=== PATIENT | female | born 1975 | race Caucasian/White ===

== ENCOUNTER 2016-05-16 10:07 | Inpatient (IN) | payer OTHER, MEDICAID ==
--- NOTE | 2016-05-16 11:02 | EDPHY ---
H & P Stated Complaint: SI, visual hallucinations - Personal History Tetanus Vaccine Date: within 10 years - Medical/Surgical History Hx Asthma: No Hx Chronic Respiratory Disease: Yes Hx Diabetes: Yes Hx Cardiac Disease: Yes Hx Renal Disease: Yes Hx Cirrhosis: No Hx Alcoholism: No Hx HIV/AIDS: No Hx Splenectomy or Spleen Trauma: No Other PMH: MEDICAL SI FACTOR V LEIDEN DEFICIENCY, PE X 4, depression, ptsd, pulmonary htn, diabetes; kidney stones, bladder incontinence,recent UTI. SURGERY BACK SURGERY, TONSILLECTOMY, carpal tunnel, ovarian cyst, frequent overdoses, uterine CA - Social History Smoking Status: Former smoker Time Seen by Provider: 05/16/16 10:53 HPI/ROS: CHIEF COMPLAINT: M1, overdose HISTORY OF PRESENT ILLNESS: 41-year-old female history of borderline personality disorder, bipolar disorder, obesity, diabetes, hypertension, hypothyroidism, arrives via police on an M1 hold after she states she took 70 Tizanidine tablets 4 days ago. She has been experiencing visual and auditory hallucinations and stated to the police district switchboard operator that she wanted to kill herself by shooting herself with a gun. She does not own a gun. She states similar to me when I interview her. She has no complaints of acute pain or discomfort. REVIEW OF SYSTEMS: A ten point review of systems was performed and is negative with the exception of the items mentioned in the HPI PAST MEDICAL & SURGICAL HISTORY: bipolar disorder. Borderline personality disorder. Obesity. Uterine dysplasia. Diabetes. Hypertension. Hypothyroidism. SOCIAL HISTORY:denies alcohol use PHYSICAL EXAM (Prior to examination, patient consented to physical exam, hands were washed and my usual and customary physical exam procedures followed) 1) GENERAL: obese, alert and oriented. Appears to be in no acute distress. 2) HEAD: Normocephalic, atraumatic 3) HEENT: Pupils equal, round, reactive to light bilaterally. Sclera anicteric. 4) NECK: Full range of motion, no meningeal signs. 5) LUNGS: Clear auscultation bilaterally, no wheezes, no rhonchi, no retractions. 6) HEART: Regular rate and rhythm, no murmur, no heave, no gallop. 7) ABDOMEN: No guarding, no rebound, no focal tenderness, negative McBurney's, negative Soni's, negative Rovsing's, negative peritoneal sign, 8) MUSCULOSKELETAL: Moving all extremities, no focal areas of tenderness, no obvious trauma. No peripheral edema or discoloration. 9) BACK: No CVA tenderness, no midline vertebral tenderness, no fluctuance, no step-off, no obvious trauma, no visual or palpable abnormality. 10) SKIN: No rash, no petechiae. 11) Psychiatric: Patient is oriented X 3, she has a flat affect DIFFERENTIAL DIAGNOSIS: in no particular order including but limited to leslie, psychosis, depression, suicidal ideation, suicide attempt (Nan,Patience Ludivina) Constitutional: Initial Vital Signs Temperature (C) 37.1 C 05/16/16 10:49 Heart Rate 77 05/16/16 10:49 Respiratory Rate 18 05/16/16 10:49 Blood Pressure 157/100 H 05/16/16 10:49 O2 Sat (%) 100 05/16/16 10:49 O2 Delivery Mode Nasal Cannula O2 (L/minute) 2 Allergies/Adverse Reactions: thiothixene [Thiothixene] Allergy (Unknown, Verified 01/14/16 12:29) Unknown adhesive Allergy (Verified 01/14/16 12:29) dabigatran etexilate mesylate [From Pradaxa] Allergy (Verified 01/14/16 12:29) haloperidol [From Haldol] Allergy (Verified 01/14/16 12:29) haloperidol lactate [From Haldol] Allergy (Verified 01/14/16 12:29) hydromorphone HCl [From Dilaudid] Allergy (Verified 01/14/16 12:29) Home Medications: Medication Instructions Recorded Calcium Carbonate [Tums 500MG (*)] 500 mg PO QID PRN 01/03/16 LORazepam [Ativan (*)] 0.5 - 1 mg PO Q4 PRN #0 tab 01/09/16 Levothyroxine [Synthroid 75 mcg 75 mcg PO DAILY@06 #30 tab 01/09/16 (*)] Lisinopril [Zestril 20 mg (*)] 20 mg PO DAILY #30 tab 01/09/16 Nicotine Polacrilex [Nicorette gum 2 mg B Q1 PRN #60 gum 01/09/16 (*)] Zolpidem Tartrate [Ambien 5MG (*)] 10 mg PO HS PRN #30 tab 01/09/16 metFORMIN HCL [Glucophage 500 mg 1,000 mg PO BIDMEAL #120 tab 01/09/16 (*)] tiZANidine HCL [Zanaflex] 4 mg PO TID #90 tab 01/09/16 Albuterol [Proventil Inhaler HFA 1 - 2 puffs IH Q4H PRN 05/18/16 (*)] Cholecalciferol Vit D3 [Vitamin D3 4,000 units PO DAILY 05/18/16 (*)] Gabapentin [Neurontin 300 MG (*)] 300 mg PO TID 05/18/16 Herbals/Supplements -Info Only 1 ea PO DAILY 05/18/16 Letrozole [Femara 2.5 mg (*)] 2.5 mg PO DAILY 05/18/16 Metoclopramide [Reglan 10 mg tab 10 mg PO QID PRN 05/18/16 (*)] Polyethylene Glycol 3350 [Miralax 17 gm PO DAILY 05/18/16 17 gm (*)] Potassium Cl [Klor-Con] 10 meq PO DAILY 05/18/16 Prazosin HCl [Minipress 1mg (*)] 3 mg PO HS 05/18/16 Tamsulosin HCl [Flomax 0.4 MG (*)] 0.4 mg PO DAILY 05/18/16 Travoprost Z 0.004% [Travatan Z 1 drops EACHEYE HS 05/18/16 0.004% (*)] clonazePAM [Klonopin (*)] 0.5 mg PO BID 05/18/16 oxyCODONE HCL [Oxycontin] 20 mg PO Q12 05/18/16 oxyCODONE IR [Oxycodone Ir (*)] 5 - 10 mg PO Q6 PRN 05/18/16 Medical Decision Making - Diagnostics EKG Interpretation: 12-lead EKG interpreted by me; official reading is in trace master. My interpretation is sinus rhythm, no acute ischemic changes, normal intervals. ( Manuel Guillory) ED Course/Re-evaluation: I reviewed patient's medical records from [facility] dated 2016 at which point she was evaluated in the emergency department for same complaint. Discussed case Dr. Manuel Guillory 2:48 p.m.: The patient requested to speak with me. At this time she is hyperventilating, appears anxious, complaining of incisional pain location transverse abdominal incision from January 2016 this area is examined. She is tender with even very light touch. There is no signs of cellulitis and remainder abdomen is soft. I doubt acute surgical abdominal pathology. She will be given Ativan. 3:50 p.m.: Patient has increasing agitation. Oral Ativan was ordered however patient declined this. Zyprexa orally has been ordered. 5:00 p.m.: Care turned over to Dr. Clinton Meyer. Awaiting mental health evaluation (Patience Montana) 0702: Patient signed over Dr. Montgomery at 7am shift change. Patient did become slightly agitated overnight was given Ativan and her pain medicine. Patient is pending placement. 0635: no acute events overnight. Patient still pending placement. She was given Ativan and Ambien this evening. (Jese Schaefer) Care assumed by me from Dr. Reza pending placement. 1730 Pt accepted in transfer to [address] Aldana. EMTALA completed. (Sunil Romeo) Other Provider: Signed out to Dr. Meyer at 3:00 p.m. with psychiatric evaluation pending. ( Manuel Guillory) 2300: Patient has remained stable throughout my care. She has been evaluated and will be placed on 3N and is awaiting transfer. Patient signed out to Dr. Schaefer at shift change. (Clinton Meyer) I assumed care of this patient from Dr. Jese Schaefer at 7:00 a.m.. During my shift she has been cooperative. She does tell me that she does not want to remain in the emergency department. However she continues to state that if she returns home she fears that she will hurt herself. She tells me she would [facility] be [facility] then return to her apartment. She has been receiving her usual scheduled medications in the emergency department. An evaluation has been performed. Placement being sought. Her care will be transferred to Dr. Alan at 3:30 p.m.. (Radha Montgomery) Patient's care transferred to pr by Radha Montgomery at 3:00 p.m. May 17. The patient has been medically cleared. She has a history of bipolar and borderline personality disorder. She overdosed several days ago and thought about shooting herself. She has been evaluated by Mental Health. She is on an M1 hold. We are awaiting placement. 12:00 p.m. care transferred to Dr. Jese Schaefer. (Peter Alan) Patient stable over my shift. Signed out to Dr. Romeo at 3pm. (Anthony Tidwell ) - Data Points Laboratory Results: Laboratory Results 05/16/16 11:14 05/16/16 11:14 Medications Given: Discontinued Medications Bisacodyl (Dulcolax Rectal) 10 mg VT EDNOW ONE Stop: 05/18/16 12:19 Last Admin: 05/18/16 12:41 Dose: 10 mg Haloperidol Lactate (Haldol Injection) 10 mg IM EDNOW ONE Stop: 05/16/16 15:39 Last Admin: 05/16/16 15:39 Dose: Not Given Lisinopril (Zestril) 20 mg PO EDNOW ONE Stop: 05/16/16 15:05 Last Admin: 05/16/16 15:18 Dose: 20 mg Lorazepam (Ativan) 1 mg PO EDNOW ONE Stop: 05/16/16 14:48 Last Admin: 05/16/16 16:15 Dose: 1 mg Lorazepam (Ativan) 2 mg PO ONCE ONE Stop: 05/16/16 19:27 Last Admin: 05/17/16 03:20 Dose: 2 mg Lorazepam (Ativan) 2 mg PO ONCE ONE Stop: 05/17/16 11:53 Last Admin: 05/17/16 11:56 Dose: 2 mg Lorazepam (Ativan) 2 mg PO ONCE ONE Stop: 05/17/16 15:07 Last Admin: 05/17/16 15:16 Dose: 2 mg Lorazepam (Ativan) 2 mg PO EDNOW ONE Stop: 05/17/16 23:26 Last Admin: 05/17/16 23:35 Dose: 2 mg Lorazepam (Ativan) 1 mg PO EDNOW ONE Stop: 05/18/16 08:20 Last Admin: 05/18/16 08:20 Dose: 1 mg Lorazepam (Ativan) 1 mg PO EDNOW ONE Stop: 05/18/16 09:14 Last Admin: 05/18/16 09:23 Dose: 1 mg Lorazepam (Ativan) 2 mg PO ONCE ONE Stop: 05/18/16 13:26 Last Admin: 05/18/16 13:34 Dose: 2 mg Lorazepam (Ativan) 2 mg PO EDNOW ONE Stop: 05/18/16 17:21 Last Admin: 05/18/16 17:36 Dose: 2 mg Metoclopramide HCl (Reglan) 10 mg PO EDNOW ONE Stop: 05/16/16 15:05 Last Admin: 05/16/16 15:40 Dose: 10 mg Metoclopramide HCl (Reglan) 10 mg PO EDNOW ONE Stop: 05/16/16 19:27 Last Admin: 05/17/16 07:00 Dose: Not Given Olanzapine (Zyprexa Zydis) 10 mg PO EDNOW ONE Stop: 05/16/16 15:57 Last Admin: 05/16/16 17:52 Dose: Not Given Olanzapine (Zyprexa Im Injection) 10 mg IM EDNOW ONE Stop: 05/16/16 18:41 Last Admin: 05/16/16 18:40 Dose: 10 mg Oxycodone HCl (Oxycodone Ir) 10 mg PO QID ONE Stop: 05/17/16 09:59 Last Admin: 05/17/16 10:11 Dose: 10 mg Oxycodone HCl (Oxycodone Ir) 10 mg PO ONCE ONE Stop: 05/17/16 16:08 Last Admin: 05/17/16 16:13 Dose: 10 mg Oxycodone HCl (Oxycodone Ir) 10 mg PO EDNOW ONE Stop: 05/18/16 11:41 Last Admin: 05/17/16 21:30 Dose: 10 mg Oxycodone HCl (Oxycodone Ir) 10 mg PO EDNOW ONE Stop: 05/17/16 20:31 Last Admin: 05/18/16 11:50 Dose: 10 mg Oxycodone/Acetaminophen (Percocet 5/325) 1 tab PO EDNOW ONE Stop: 05/16/16 15:05 Last Admin: 05/16/16 15:20 Dose: 1 tab Oxycodone/Acetaminophen (Percocet 5/325) 1 tab PO EDNOW ONE Stop: 05/16/16 19:29 Last Admin: 05/17/16 03:20 Dose: 1 tab Oxycodone/Acetaminophen (Percocet 5/325) 1 tab PO EDNOW ONE Stop: 05/17/16 06:02 Last Admin: 05/17/16 06:06 Dose: 1 tab Senna/Docusate Sodium (Senokot-S) 1 tab PO EDNOW ONE Stop: 05/18/16 08:28 Last Admin: 05/18/16 08:33 Dose: 1 tab Zolpidem Tartrate (Ambien) 5 mg PO EDNOW ONE Stop: 05/18/16 00:19 Last Admin: 05/18/16 00:20 Dose: 5 mg Departure - Departure Disposition: [facility] IP Clinical Impression: Acute psychosis Condition: Fair Referrals: NONE *PRIMARY CARE P,. [Primary Care Provider] - As per Instructions
[2016-05-16 11:23] LABS: % IMMATURE GRANULYOCYTES 0.2 % (0.0-1.1); ABSOLUTE IMMATURE GRANULOCYTES 0.02 10^3/uL (0.00-0.10); ADD DIFF? NO; ADD MORPH? NO; ADD SCAN? NO; ATYPICAL LYMPHOCYTE FLAG 0 (0-99); FRAGMENT RBC FLAG 20 (0-99); HEMATOCRIT 38.3 % (38.0-47.0); HEMOGLOBIN 11.7 g/dL (12.6-16.3); LEFT SHIFT FLG 0 (0-99); LIPEMIA HEMOLYSIS FLAG 80 (0-99); MEAN CELL HEMOGLOBIN 25.2 pg (27.9-34.1); MEAN CELL HEMOGLOBIN CONCENTR. 30.5 g/dL (32.4-36.7); MEAN CELL VOLUME 82.4 fL (81.5-99.8); MEAN PLATELET VOLUME 10.5 fL (8.7-11.7); PLATELET CLUMPS FLAG 0 (0-99); PLATELET COUNT 311 10^3/uL (150-400); RED BLOOD CELL COUNT 4.65 10^6/uL (4.18-5.33); RED CELL DISTRIBUTION WIDTH 18.3 % (11.5-15.2)
--- NOTE | 2016-05-16 11:28 | CPEKG ---
Heart Rate: 72 RR Interval: 833 P-R Interval: 160 QRSD Interval: 82 QT Interval: 388 QTC Interval: 425 P [place]: 28 QRS [place]: 48 T Wave [place]: 34 EKG Severity - NORMAL ECG - EKG Impression: SINUS RHYTHM Electronically Signed By: Manuel Guillory 16-May-2016 14:53:48
[2016-05-16 11:33] LABS: APTT 26.5 SEC (23.0-38.0); INR 0.99 (0.83-1.16)
[2016-05-16 11:57] LABS: ALANINE AMINOTRANSFERASE 58 IU/L (9-52); ALBUMIN 4.2 g/dL (3.5-5.0); ALKALINE PHOSPHATASE 137 IU/L (38-126); ANION GAP 16 mEq/L (8-16); ASPARTATE AMINOTRANSFERASE 45 IU/L (14-46); BILIRUBIN,TOTAL 0.4 mg/dL (0.1-1.4); CALCIUM 9.6 mg/dL (8.5-10.4); CARBON DIOXIDE 23 mEq/l (22-31); CHLORIDE 105 mEq/L (97-110); CREATININE 0.6 mg/dL (0.6-1.0); ETHANOL SERUM < 10 mg/dL (0-10); GLOMERULAR FILTRATION RATE > 60; GLUCOSE 135 mg/dL (70-100); POTASSIUM 3.8 mEq/L (3.5-5.2); SALICYLATE < 1.0 mg/dL (2.0-20.0); SODIUM 144 mEq/L (134-144)
[2016-05-16] MEDS ORDERED: LORazepam 1 MG TAB PO ONE ×2 (14:47→19:26)
[2016-05-16] MEDS ORDERED: LISINOPRIL 20 MG TAB ONE (15:02)
[2016-05-16] MEDS ORDERED: OXYCODONE/APAP 5/325 TAB ONE (15:03)
[2016-05-16] MEDS ORDERED: LISINOPRIL 20 MG TAB PO ONE (15:04)
[2016-05-16] MEDS ORDERED: OXYCODONE/APAP 5/325 TAB PO ONE ×2 (15:04→19:28)
[2016-05-16] MEDS ORDERED: METOCLOPRAMIDE 10 MG TAB PO ONE ×2 (15:04→19:26)
[2016-05-16] MEDS ORDERED: HALOPERIDOL LACT 5 MG/ML INJ ONE (15:32)
[2016-05-16] MEDS ORDERED: HALOPERIDOL LACT 5 MG/ML INJ IM ONE (15:38)
[2016-05-16] MEDS ORDERED: OLANZapine DISINTEGR 10 MG TAB PO ONE (15:56)
[2016-05-16] MEDS ORDERED: OLANZapine DISINTEGR 10 MG TAB ONE (18:13)
[2016-05-16] MEDS ORDERED: OLANZapine 10 MG/2 ML VIAL IM ONE ×2 (18:32→18:40)
[2016-05-17] MEDS ORDERED: OXYCODONE/APAP 5/325 TAB ONE (05:56)
[2016-05-17] MEDS ORDERED: OXYCODONE/APAP 5/325 TAB PO ONE (06:01)
[2016-05-17] MEDS ORDERED: oxyCODONE IR 5 MG TAB PO ONE ×3 (09:58→20:30)
[2016-05-17] MEDS: LISINOPRIL 20 MG TAB PO SCH (10:10)
[2016-05-17] MEDS: GABAPENTIN 300 MG CAP PO SCH ×3 (11:22→20:51)
[2016-05-17] MEDS: metFORMIN HCL 500 MG TAB PO SCH ×2 (11:22→18:30)
[2016-05-17] MEDS: LEVOTHYROXINE 75 MCG TAB PO SCH (11:22)
[2016-05-17] MEDS ORDERED: LORazepam 1 MG TAB PO ONE ×3 (11:52→23:25)
[2016-05-17] MEDS ORDERED: PREGABALIN 50 MG CAP PO SCH ×2 (15:30→16:00)
[2016-05-17] MEDS ORDERED: BACLOFEN 10 MG TAB PO SCH ×2 (16:00)
[2016-05-17] MEDS ORDERED: PREGABALIN 75 MG CAP PO SCH (16:00)
[2016-05-17] MEDS: TRAVOPROST Z 0.004% 2.5 ML OPHT.BTL EACHEYE SCH (16:06)
[2016-05-17] MEDS ORDERED: oxyCODONE IR 5 MG TAB ONE (20:52)
[2016-05-17] MEDS ORDERED: LORazepam 1 MG TAB ONE ×2 (23:01→23:20)
[2016-05-18] MEDS ORDERED: ZOLPIDEM TARTRATE 5 MG TAB ONE (00:10)
[2016-05-18] MEDS ORDERED: ZOLPIDEM TARTRATE 5 MG TAB PO ONE (00:18)
[2016-05-18] MEDS ORDERED: LORazepam 1 MG TAB PO ONE ×5 (08:19→22:30)
[2016-05-18] MEDS: metFORMIN HCL 500 MG TAB PO SCH ×2 (08:20→17:35)
[2016-05-18] MEDS: LEVOTHYROXINE 75 MCG TAB PO SCH (08:20)
[2016-05-18] MEDS: LISINOPRIL 20 MG TAB PO SCH ×2 (08:20→14:45)
[2016-05-18] MEDS: GABAPENTIN 300 MG CAP PO SCH ×4 (08:20→23:11)
[2016-05-18] MEDS ORDERED: SENNOSIDES/DOCUSATE SODIUM TAB PO ONE (08:27)
[2016-05-18] MEDS ORDERED: oxyCODONE IR 5 MG TAB PO ONE ×2 (11:40→17:48)
[2016-05-18] MEDS ORDERED: BISACODYL 10 MG SUPP PR ONE (12:18)
[2016-05-18] MEDS: MAGNESIUM HYDROXIDE 30 ML UDCUP PO PRN (13:34)
[2016-05-18] MEDS ORDERED: LORazepam 1 MG TAB PO PRN (20:06)
[2016-05-18] MEDS: TRAVOPROST Z 0.004% 2.5 ML OPHT.BTL EACHEYE SCH (21:59)
[2016-05-18] MEDS ORDERED: NICOTINE POLACRILEX 2 MG GUM B PRN (22:13)
[2016-05-18] MEDS ORDERED: ALBUTEROL 60 PUFFS/8 GM MDI IH PRN (22:13)
[2016-05-18] MEDS: ZOLPIDEM TARTRATE 5 MG TAB PO PRN (23:04)
[2016-05-18] MEDS: oxyCODONE IR 5 MG TAB PO PRN (23:05)
[2016-05-19] MEDS: LORazepam 0.5 MG TAB PO PRN ×3 (00:30→13:50)
[2016-05-19] MEDS: metFORMIN HCL 500 MG TAB PO SCH ×2 (09:33→17:03)
[2016-05-19] MEDS: GABAPENTIN 300 MG CAP PO SCH ×3 (09:34→19:43)
[2016-05-19] MEDS: LISINOPRIL 20 MG TAB PO SCH (09:35)
[2016-05-19] MEDS: LEVOTHYROXINE 75 MCG TAB PO SCH (09:35)
[2016-05-19] MEDS: oxyCODONE IR 5 MG TAB PO PRN ×3 (09:41→19:57)
--- NOTE | 2016-05-19 14:15 | BAPA ---
[f rep st] ADMISSION PSYCHIATRIC ASSESSMENT DATE OF SERVICE: 05/19/2016 CHIEF COMPLAINT: "I can't go back there. I'll never live in that apartment again." HISTORY OF PRESENT ILLNESS: Patient is a 41-year-old female, with a past history of diagnoses of bipolar disorder, as well as borderline personality disorder. She has a very long history of self-harming specifically recurrent suicidal thoughts and overdosing. She presented to the ER after calling 911, stating she had taken 700 muscle relaxers. They brought her to the hospital and as is typically the case there was no evidence clinically of any overdose though she continued to endorse suicidal thoughts and stated that she could not return to her home. She lives alone in her apartment and states that recently she has not felt safe there or comfortable and cannot go back there. When I spoke with her today she states that she feels like "[place] is out to get me." She states that she feels she has "cross hairs on my back." She will not explain what this means but states that she is generally uncomfortable living in her apartment in [place] and does not want to return there, "even if I have to be homeless on the streets." She denies any other specific stresses at this time or inciting factors though does relate a history of diagnosis of both ovarian and uterine cancer in January of last year and undergoing chemotherapy and radiation as well as an emergency hysterectomy. She states that since that time. She has had increased problems with her bowels and bladder and that she has severe pain under the incision from the surgery, stating that she was told that there was some form of cyst or abscess there. Significant for numerous previous psychiatric hospitalizations. The last hospitalization here was in December of 2015 and prior to that she was with us in November of 2014. Her last hospitalization was in March of 2016 at [facility]. ALLERGIES: Listed the thiothixene, haloperidol, Pradaxa and Dilaudid. CURRENT MEDICATIONS: Include vitamin D 4000 units daily, Reglan 10 mg 4 times a day p.r.n., potassium chloride 10 mEq daily, clonazepam 0.5 mg b.i.d., oxycodone ER 20 mg every 12 hours, oxycodone IR 5-10 mg every 6 hours as needed for breakthrough pain, Zanaflex 4 mg t.i.d., albuterol inhaler, Proventil inhaler, gabapentin 300 mg t.i.d., Femara 2.5 mg daily, levothyroxine 75 mg daily, lisinopril 20 mg daily, MiraLAX 17 g packet p.r.n., prazosin 1 mg h.s., Flomax 0.4 mg daily, Ambien 10 mg h.s., and metformin 1000 mg b.i.d. PAST MEDICAL HISTORY: Significant for obesity and these recent abdominal issues. I do not have any corroboration in regard to her report of the 2 kinds of cancer and radiation, though will seek to verify this. I do believe that she is supposed to be taking the Femara and will try to, again, clarify. SOCIAL HISTORY: Patient is single. Lives alone in an apartment in [place]. She is on disability for mental illness. Her father lives locally and is her primary support. She has a dog named Pablo, who is a Suraj, whom she states she has given away to friends though we were told that her father is caring for it. She has few social contacts and tends to isolate. She denies any active drug use. She denies any current legal problems though has had some issues in the past including incarceration. LABORATORY DATA: CBC shows hemoglobin low at 11.7, otherwise no significant abnormalities. PT/INR are normal. Serum chemistries show nonfasting glucose of 135, ALT up at 58. Alkaline phosphatase of 137, TSH is normal. Urine drug screen is negative for all substances. Salicylate and acetaminophen levels are less than detectable alcohol is less than detectable. MENTAL STATUS EXAMINATION: Reveals an unkempt female laying in a hospital bed wearing hospital garb. She is easily awakened and conversant. She maintains good eye contact and participates actively in the interview. Her affect is blunted, stable. Her mood is described as "bad." Her thought process is linear and goal directed. Her thought content reveals this statement of being afraid of the people in [place] though it is unclear what this represents. There is no other suggestion of psychosis. She is alert and oriented to person, place, time, and situation. Her sensorium is clear. Her attention and concentration are adequate to the interview. There are no gross cognitive deficits noted. She does not endorse thoughts of suicide. She only repeats the statements about not wanting to return to her apartment. Her intellect appears to be average as evidenced by her fund of knowledge and vocabulary. Her insight and judgment are marginal. IMPRESSION: Borderline personality disorder; bipolar disorder, by history; obesity; recent diagnoses of ovarian and possibly uterine cancer; hypertension; hypothyroidism; hyperglycemia; abdominal pain; chronic opioid-induced constipation. Patient is a 41-year-old, female with numerous medical and psychiatric issues who is well known to us from previous treatments. She presents at this time in crisis though it is difficult understand why. She has always liked her apartment fine and it is unclear why she is saying that she does not want to go back there. She is appearing or attempting to appear paranoid so we will monitor this to try to separate any possible genuine psychosis from the more likely factitious presentation. Will continue her previous outpatient medications and do what we can to help with her bowel regimen. We will monitor closely for any attempts at self-harm and evaluate her psychotropic regimen. She states that she did followup with one appointment with [facility] in [place] after her last discharge until she had her cancer treatment issues and has not been back. We will examine options for mental health follow-up there or elsewhere, though she has a long history of non -compliance and refusal of treatment which will likely limit options. Estimated length of stay is 3-5 days. /[id number]/MODL MTDD
[2016-05-19] MEDS: POLYETHYLENE GLYCOL 3350 17 GM PKT PO SCH (14:53)
[2016-05-19] MEDS: TAMSULOSIN HCL 0.4 MG CAP PO SCH (14:53)
[2016-05-19] MEDS: LETROZOLE 2.5 MG TAB PO SCH (14:54)
[2016-05-19] MEDS: ZOLPIDEM TARTRATE 5 MG TAB PO PRN (19:42)
[2016-05-19] MEDS: PRAZOSIN HCL 1 MG CAP PO SCH (19:42)
[2016-05-19] MEDS: TRAVOPROST Z 0.004% 2.5 ML OPHT.BTL EACHEYE SCH (19:43)
[2016-05-19] MEDS: MAGNESIUM HYDROXIDE 30 ML UDCUP PO PRN (22:26)
[2016-05-19] MEDS: METOCLOPRAMIDE 10 MG TAB PO PRN (23:51)
--- NOTE | 2016-05-20 01:16 | BCON ---
[f rep st] BEHAVIORAL HEALTH CONSULTATION INTERNAL MEDICINE CONSULTATION DATE OF CONSULTATION: 05/19/2016 REFERRING PHYSICIAN: Dr. Aldana REASON FOR CONSULTATION: Medical clearance for inpatient behavioral health stay. HISTORY OF PRESENT ILLNESS: The patient came to the emergency department 3 days ago complaining of suicidal ideation. She was evaluated by the mental health team and eventually admitted for further psychiatric care. She currently is without any acute complaints and reports that she is being released today. PAST MEDICAL HISTORY: 1. Psychiatric diagnoses including borderline personality, PTSD, and schizoaffective disorder. 2. Uterine cancer. 3. Type 2 diabetes. 4. Factor V Leiden. 5. Hypertension. 6. Hypothyroidism. 7. Obstructive sleep apnea. 8. Tobacco dependence syndrome. 9. Glaucoma. 10. Urinary tract infections. 11. Morbid obesity. PAST SURGICAL HISTORY: She has had surgery for uterine cancer, though she is not forthcoming with more details. This was in January. MEDICATIONS: Prior to admission: 1. Tizanidine 4 mg p.o. t.i.d. 2. Oxycodone extended release 20 mg p.o. q.12 hours. 3. Oxycodone immediate release 5-10 mg p.o. q.6 hours p.r.n. 4. Metformin 1000 mg p.o. b.i.d. 5. Clonazepam 0.5 mg p.o. b.i.d. 6. Zolpidem 10 mg p.o. q.h.s. p.r.n. 7. Travoprost 0.004% 1 drop each eye q.h.s. 8. Tamsulosin 0.4 mg p.o. q. day. 9. Prazosin 3 mg p.o. q.h.s. 10. Potassium chloride 10 mg p.o. q. day. 11. Polyethylene glycol 17 g p.o. q. day. 12. Nicotine gum. 13. Metoclopramide 10 mg p.o. q.i.d. p.r.n. 14. Lisinopril 20 mg p.o. q. day. 15. Levothyroxine 75 mcg p.o. q. day. 16. Letrozole 2.5 mg p.o. q. day. 17. Lorazepam 0.5-1 mg p.o. q.4 hours p.r.n. 18. Gabapentin 300 mg p.o. t.i.d. 19. Cholecalciferol 4000 units p.o. q. day. 20. Calcium carbonate 500 mg p.o. q.i.d. p.r.n. 21. Albuterol 1-2 puffs q.4 hours p.r.n. ALLERGIES: Listed to thiothixene, adhesive, dabigatran, haloperidol. SOCIAL HISTORY: She lives alone in an apartment in [place]. She is a smoker. FAMILY HISTORY: Noncontributory. REVIEW OF SYSTEMS: She was not cooperative. PHYSICAL EXAM: She was also not cooperative with exam. VITAL SIGNS: Blood pressure this morning was 138/72, heart rate was 93, respiratory rate was 16. Oxygen saturation was 94% on room air. Temperature was 36.6 degrees centigrade. Her weight is 161 kg for a body mass index of 59. GENERAL: This is a very obese woman, appears her chronologic age, not cooperative with exam, in no acute distress, ambulating in her room with a walker. HEENT: She appears to be atraumatic and normocephalic and extraocular movements are intact. NECK: Supple. RESPIRATORY: She is not tachypneic or in respiratory distress. NEUROLOGIC: She is alert and oriented x3 to the extent that could be casually observed. Cranial nerves 2 through 12 are grossly intact. She is ambulating with a walker with a somewhat wide-based, but a step-through pattern. LABORATORY STUDIES: From the emergency department showed: CBC showed mild anemia with a hemoglobin of 11.7. She also had a low mean cellular hemoglobin and mean cellular hemoglobin content and a wide RDW. Otherwise, CBC was within normal limits. Coagulation revealed an INR of 0.99. Serum chemistry had an elevated glucose at 135, slightly elevated ALT at 58, and alkaline phosphatase at 137. Otherwise, renal function, liver function, and electrolytes were within normal limits. TSH was normal at 1.5. Toxicology in the urine was negative for salicylates, acetaminophen, or ethyl alcohol. Toxicology in the urine was negative for substances of abuse. ASSESSMENT/RECOMMENDATIONS: 1. Psychiatric issues. Apparently, having been assessed by Psychiatry, she is being released today and will follow up per the plan of Psychiatry. 2. Morbid obesity. 3. Hypertension. 4. Chronic pain. 5. Hypothyroidism. Her chronic issues appear to be stable. I see no medical contraindications to the patient's continued stay on the inpatient behavioral health unit or to any psychiatric medications or procedures. Thank you very much for including me in the care of the patient and please do not hesitate to contact me or the hospitalist service should there be need for further medical evaluation. /[id number]/MODL MTDD
[2016-05-20] MEDS: LORazepam 0.5 MG TAB PO PRN ×5 (01:32→18:37)
[2016-05-20] MEDS: oxyCODONE IR 5 MG TAB PO PRN ×5 (01:33→21:44)
[2016-05-20] MEDS: metFORMIN HCL 500 MG TAB PO SCH ×2 (08:09→17:01)
[2016-05-20] MEDS: METOCLOPRAMIDE 10 MG TAB PO PRN ×2 (08:10→20:11)
[2016-05-20] MEDS: LETROZOLE 2.5 MG TAB PO SCH (08:10)
[2016-05-20] MEDS: CALCIUM CARBONATE 500 MG CHEWABLE TAB PO PRN (08:11)
[2016-05-20] MEDS: GABAPENTIN 300 MG CAP PO SCH ×3 (08:14→20:56)
[2016-05-20] MEDS: LEVOTHYROXINE 75 MCG TAB PO SCH (10:52)
[2016-05-20] MEDS: LISINOPRIL 20 MG TAB PO SCH (10:52)
[2016-05-20] MEDS: TAMSULOSIN HCL 0.4 MG CAP PO SCH (10:53)
--- NOTE | 2016-05-20 11:33 | SOAPPROG ---
SOAP Progress Note Assessment/Plan: Assessment: Plan: 05/20/16 11:35 Multiple treatment foci. Behavioral issues are expected and relatively mild. Will continue current behavioral interventions including LOS if on O2 and limited responses to help-seeking, help-rejecting behaviors. Will restart oxy ER, monitor GI sx's. O/w, CCM. Subjective: Pt seen, discussed with staff. Events of last night reviewed with pt and staff in team meeting. She rescinded her request for AMA d/c stating she had nowhere to go. She then stated to RN and again this morning to me that she could return home if she had in-home aides. She states she had that before but it was discontinued when she went in to the hospital for her CA surgeries and treatments. She then went to a SNF for senior living where she took an OD of pills from her own supply and was hospitalized at [facility]. She then went back to her apartment and states she could not adequately care for herself. She reports having numerous bowel movements over night and then began vomiting overnight. Team questions whether this could represent opioid withdrawal. Pharmacy informs me that she was on oxycodone ER 20mg BID [employer]. Objective: Vital Signs Temp Pulse Resp BP Pulse Ox 36.8 C 96 12 138/75 H 87 L 05/20/16 06:00 05/20/16 09:44 05/20/16 09:44 05/20/16 09:44 05/20/16 09:44 PT 13.0 SEC (12.0-15.0) 05/16/16 11:14 INR 0.99 (0.83-1.16) 05/16/16 11:14 MSE: Moderately anxious, states she is "sick." Affect is blunted, stable. Mood is "bad." TP linear. TC reveals no psychosis. No evidence of paranoia. A&Ox4, sensorium is clear with no evidence of delirium. She reports SI today, . - Time Spent With Patient Time Spent With Patient: 25" - Pending Discharge Pending Discharge Within 24 Hours: No Pending Discharge Within 48 Hours: No ICD10 Worksheet Patient Problems: Problems Problem Status Diagnosed Acute psychosis Acute Overdose of coumadin Acute Intentional benzodiazepine overdose Acute Personality disorder Acute Schizo-affective psychosis Acute Suicidal ideation Acute
[2016-05-20] MEDS: POLYETHYLENE GLYCOL 3350 17 GM PKT PO SCH (13:02)
[2016-05-20] MEDS: PRAZOSIN HCL 1 MG CAP PO SCH (20:55)
[2016-05-20] MEDS: TRAVOPROST Z 0.004% 2.5 ML OPHT.BTL EACHEYE SCH (20:56)
[2016-05-21] MEDS: LORazepam 0.5 MG TAB PO PRN ×3 (04:50→11:46)
[2016-05-21] MEDS: METOCLOPRAMIDE 10 MG TAB PO PRN ×2 (05:21→18:05)
[2016-05-21] MEDS: oxyCODONE IR 5 MG TAB PO PRN ×3 (06:29→12:46)
[2016-05-21] MEDS: metFORMIN HCL 500 MG TAB PO SCH ×2 (08:04→18:05)
[2016-05-21] MEDS: TAMSULOSIN HCL 0.4 MG CAP PO SCH (08:04)
[2016-05-21] MEDS: LISINOPRIL 20 MG TAB PO SCH (08:06)
[2016-05-21] MEDS: LEVOTHYROXINE 75 MCG TAB PO SCH (10:19)
[2016-05-21] MEDS: CALCIUM CARBONATE 500 MG CHEWABLE TAB PO PRN (10:19)
[2016-05-21] MEDS: LETROZOLE 2.5 MG TAB PO SCH (10:20)
[2016-05-21] MEDS: GABAPENTIN 300 MG CAP PO SCH ×3 (10:42→22:26)
[2016-05-21] MEDS: POLYETHYLENE GLYCOL 3350 17 GM PKT PO SCH (10:46)
--- NOTE | 2016-05-21 13:12 | SOAPPROG ---
SOAP Progress Note Assessment/Plan: Assessment: Plan: 05/20/16 11:35 Multiple treatment foci. Behavioral issues are expected and relatively mild. Will continue current behavioral interventions including LOS if on O2 and limited responses to help-seeking, help-rejecting behaviors. Will restart oxy ER, monitor GI sx's. O/w, CCM. 05/21/16 13:12 Much the same. Will CCM. Continue d/c planning. Needs higher level of care whether in the home or out. Subjective: Pt seen, discussed with staff. Dramatic, tearful. Up in day room. Voices numerous emotional and physical needs. Escalates with staff attention. Objective: Vital Signs Temp Pulse Resp BP Pulse Ox 36.8 C 96 18 134/63 H 90 L 05/21/16 06:00 05/21/16 06:00 05/21/16 06:00 05/21/16 08:06 05/21/16 06:00 PT 13.0 SEC (12.0-15.0) 05/16/16 11:14 INR 0.99 (0.83-1.16) 05/16/16 11:14 MSE: Agitated, tearful, dramatic. Mood is "terrible." TP linear. TC reveals no obvious psychosis. She makes statements re: the devil and going to hell, but this does not appear to be delusional. - Time Spent With Patient Time Spent With Patient: 15" - Pending Discharge Pending Discharge Within 24 Hours: No Pending Discharge Within 48 Hours: No ICD10 Worksheet Patient Problems: Problems Problem Status Diagnosed Acute psychosis Acute Overdose of coumadin Acute Intentional benzodiazepine overdose Acute Personality disorder Acute Schizo-affective psychosis Acute Suicidal ideation Acute
[2016-05-21] MEDS ORDERED: CLOTRIMAZOLE 1% 15 GM CRTUBE TP PRN (15:26)
[2016-05-21] MEDS: MOVANTIK 25 MG PO SCH (15:53)
[2016-05-21] MEDS: PRAZOSIN HCL 1 MG CAP PO SCH (18:59)
[2016-05-21] MEDS: ZOLPIDEM TARTRATE 5 MG TAB PO PRN (19:00)
[2016-05-21] MEDS: TRAVOPROST Z 0.004% 2.5 ML OPHT.BTL EACHEYE SCH (19:00)
[2016-05-22] MEDS: LORazepam 0.5 MG TAB PO PRN ×4 (02:41→19:01)
[2016-05-22] MEDS: metFORMIN HCL 500 MG TAB PO SCH ×2 (09:03→17:07)
[2016-05-22] MEDS: TAMSULOSIN HCL 0.4 MG CAP PO SCH (09:03)
[2016-05-22] MEDS: oxyCODONE IR 5 MG TAB PO PRN ×3 (09:04→17:25)
[2016-05-22] MEDS: CALCIUM CARBONATE 500 MG CHEWABLE TAB PO PRN (09:05)
[2016-05-22] MEDS: METOCLOPRAMIDE 10 MG TAB PO PRN ×2 (09:05→14:38)
[2016-05-22] MEDS: LISINOPRIL 20 MG TAB PO SCH (09:05)
[2016-05-22] MEDS: GABAPENTIN 300 MG CAP PO SCH ×3 (09:05→20:46)
[2016-05-22] MEDS: LETROZOLE 2.5 MG TAB PO SCH ×4 (10:07→21:30)
[2016-05-22] MEDS: LEVOTHYROXINE 75 MCG TAB PO SCH (15:03)
[2016-05-22] MEDS: MOVANTIK 25 MG PO SCH ×2 (15:04→16:43)
[2016-05-22] MEDS: POLYETHYLENE GLYCOL 3350 17 GM PKT PO SCH (15:09)
--- NOTE | 2016-05-22 17:34 | SOAPPROG ---
SOAP Progress Note Assessment/Plan: Assessment: Plan: 05/20/16 11:35 Multiple treatment foci. Behavioral issues are expected and relatively mild. Will continue current behavioral interventions including LOS if on O2 and limited responses to help-seeking, help-rejecting behaviors. Will restart oxy ER, monitor GI sx's. O/w, CCM. 05/21/16 13:12 Much the same. Will CCM. Continue d/c planning. Needs higher level of care whether in the home or out. 05/22/16 17:34 Generalized c/o's continue. She also continues to display regressive behaviors such as refusing to walk. It is unclear what her ambulatory abilities are at this point. Will ask for PT eval. It is also unclear what her pain needs are as she c/o constant high levels of pain, but is quite groggy throughout the day. Will CCM, hold IR oxycodone until BP and mental status normalize. Subjective: Pt seen, discussed with staff. Reports feeling "terrible." Conversant at first , but escalates into yelling. Focused on pain control needs and general abdominal discomfort and nausea. Had witnessed diarrhea yesterday. RN called later in the day to report pt's BP was lower with SBP<100. Pt has no referable c/o's, but continues to voice general abdominal c/o's. Objective: Vital Signs Temp Pulse Resp BP Pulse Ox 36.8 C 94 20 124/58 H 93 05/22/16 16:00 05/22/16 16:00 05/22/16 16:00 05/22/16 16:00 05/22/16 16:00 PT 13.0 SEC (12.0-15.0) 05/16/16 11:14 INR 0.99 (0.83-1.16) 05/16/16 11:14 MSE: Moderately agitated, irritable. Affect is constricted, irritable. Mood is "terrible." TP linear. TC reveals no evidence of psychosis. Endorses SI to staff this morning 01/04. - Time Spent With Patient Time Spent With Patient: 25" - Pending Discharge Pending Discharge Within 24 Hours: No Pending Discharge Within 48 Hours: No ICD10 Worksheet Patient Problems: Problems Problem Status Diagnosed Acute psychosis Acute Overdose of coumadin Acute Intentional benzodiazepine overdose Acute Personality disorder Acute Schizo-affective psychosis Acute Suicidal ideation Acute
[2016-05-22] MEDS: TRAVOPROST Z 0.004% 2.5 ML OPHT.BTL EACHEYE SCH (20:46)
[2016-05-22] MEDS: ZOLPIDEM TARTRATE 5 MG TAB PO PRN (21:08)
[2016-05-23] MEDS: LORazepam 0.5 MG TAB PO PRN (05:02)
[2016-05-23] MEDS: METOCLOPRAMIDE 10 MG TAB PO PRN (07:37)
[2016-05-23] MEDS: LETROZOLE 2.5 MG TAB PO SCH ×2 (07:38→07:54)
[2016-05-23] MEDS: TAMSULOSIN HCL 0.4 MG CAP PO SCH (07:38)
[2016-05-23] MEDS: MOVANTIK 25 MG PO SCH (07:38)
[2016-05-23] MEDS: LISINOPRIL 20 MG TAB PO SCH (07:39)
[2016-05-23] MEDS: metFORMIN HCL 500 MG TAB PO SCH (07:39)
[2016-05-23] MEDS: GABAPENTIN 300 MG CAP PO SCH (07:39)
[2016-05-23] MEDS: POLYETHYLENE GLYCOL 3350 17 GM PKT PO SCH (07:40)
[2016-05-23] MEDS: LEVOTHYROXINE 75 MCG TAB PO SCH (07:48)
[2016-05-23 10:37] VITALS: BP 111/55; PULSE 84; RESP 16; TEMP 97.5; O2SAT 84
--- NOTE | 2016-05-23 23:32 | BDS ---
[f rep st] BEHAVIORAL HEALTH DISCHARGE SUMMARY REASON FOR ADMISSION: The patient is a 41-year-old female well known to us from previous a dmissions with a primary diagnosis of borderline personality disorder. She presented to the emergenc y department after calling an ambulance, stating that she had taken 700 pills in an overdose. As in past circumstances, she almost certainly did not take an overdose but continued to voice suicidal robb ations and was admitted for further evaluation. A full description of the events preceding admission can be found in her admission history dated 05/19/2016. Admitting physical examination performed by Dr. Star Wild revealed morbid obesity and chronic p ain. No acute physical findings. ADMISSION LABORATORY: CBC showed hemoglobin low at 11.7, though normal hematocrit at 38.3. MCV was normal at 82.4. PT/INR were normal. Serum chemistries were normal with the exception of a nonfastin g glucose of 135. Liver function was normal with the exception of an ALT up at 58 and alkaline phosp hatase up at 137. TSH was normal at 1.5. Urine drug screen showed no substances of abuse and alcoho l was less than detectable. Salicylate and acetaminophen screens were also less than detectable. HOSPITAL COURSE: The patient was admitted to the behavioral health services inpatient unit on an M1 hold. She was angry and resistant, demonstrating prominent help-seeking/help-rejecting behaviors fro m the outset. She was demanding of nurses and wanted her pain medicines and other medicines immediat meche. We were able to organize her medication list and provide her with what we believed at the time were her proper medications, though after she developed some nausea, diarrhea and vomiting, we though t perhaps we had underdosed her opioids. She was supposed to take oxycodone immediate release 10 mg q.i.d. and 20 mg of sustained release b.i.d. We had not received information about the b.i.d. extend ed release, and we restarted that. Her GI symptoms resolved at that time. Unfortunately, as her hos pitalization went by, she was more and more sedated. She would be sitting in the day room, unable to open her eyes or speak without slurring, falling asleep, and complaining she needed more pain medica tion. I held the immediate release on 05/22/2016 due to relative hypotension. I also held her prazo sin at bedtime that night. On the , she had some nightmares and was agitated and was upset about this. The patient's hospitalization was complicated by numerous medical complaints including inability to w alk and insisting on a wheelchair. Later in her hospitalization, she insisted that she never wanted the wheelchair and that we insisted that she use it. This was not the case as we were trying to enco urage her to ambulate on her own throughout her stay. She also requested an AMA discharge on her night in the hospital, which was granted but then she chose to stay. She demonstrated ongoing bor derline coping, including splitting and intense negative affects. She said she was seeing ghosts and the devil and she was afraid of them and stated she was paranoid that everyone in [place] wanted to kill her. I believe that these were completely embellished and I do not believe at all that she had any true psychotic symptoms. On the day of discharge, the respiratory care assistant and I met with her to discuss the discharge plan. She initially said she would never go back to her apartment because she was afraid to be there and then brian petersonshorty stated that she simply wanted more support. funding coordinator was able to get hold of her [facility] home health agency who were happy to reopen her case and offer her 15 hours of services in all the areas she stated she needed, but that she had to be home to get the evaluation. When we said this t o the patient, she stated she wanted to leave immediately so she could go home and begin her outpatie nt services. She was disavowing suicidal ideation at that time, though earlier in the day she had st ated that she was still suicidal. This is consistent with our previous experience and with her borde rline character. I do not believe that she was an imminent risk to herself in any way. Care coordin aniyah was able to make arrangements with the home health agency to meet her at home. CONDITION AT DISCHARGE: Stable. Her affect was stable and she was voicing no thoughts of suicide. DISCHARGE MEDICATIONS: Levothyroxine 75 mcg daily, Zestril 20 mg daily, Ambien 10 mg at bedtime, met formin 1000 mg b.i.d., Zanaflex 4 mg t.i.d., Femara 2.5 mg daily, oxycodone 20 mg ER tablet b.i.d. an d 10 mg immediate release every 6 hours as needed; the patient is cautioned not to overtake. MiraLAX 17 g daily, travoprost eyedrops every 8 hours, Flomax 0.4 mg daily, prazosin 3 mg at bedtime, Neuron tin 300 mg t.i.d., vitamin D3 4000 units daily. DISCHARGE DIAGNOSES: Borderline personality disorder and bipolar disorder by history, obesity, histo ry of ovarian and uterine cancer, hypertension, hypothyroidism, hyperglycemia, abdominal pain and chr onic opioid-induced constipation. DISPOSITION: Patient left the hospital in a cab to return to her apartment. FOLLOWUP: Followup is with the [facility] and then with her primary care for medications as sche duled. LEGAL COURSE: The patient was converted to voluntary status at the expiration of her M1 hold. /[id number]/MODL
== END 2016-05-23 11:55 | disposition home or self-care (01) | DRG 885 ==
LOC: EDUNIT# → BBEH 05-18 19:35
PROVIDERS: ADMIT Psychiatry & Neurology Behavioral Neurology & Neuropsychiatry; ATTEND Psychiatry & Neurology Behavioral Neurology & Neuropsychiatry
DX: F31.9 Bipolar disorder, unspecified (principal); F60.3 Borderline personality disorder; F43.10 Post-traumatic stress disorder, unspecified; D68.2 Hereditary deficiency of other clotting factors; E11.9 Type 2 diabetes mellitus without complications; I10 Essential (primary) hypertension; E03.9 Hypothyroidism, unspecified; G47.33 Obstructive sleep apnea (adult) (pediatric); E66.01 Morbid (severe) obesity due to excess calories; K59.03 Drug induced constipation; T40.2X5S Adverse effect of other opioids, sequela; Z87.891 Personal history of nicotine dependence; Z85.43 Personal history of malignant neoplasm of ovary; Z85.42 Personal history of malignant neoplasm of other parts of uterus; Z86.711 Personal history of pulmonary embolism; Z68.43 Body mass index [BMI] 50.0-59.9, adult
CPT/HCPCS: 80305; G0480

== ENCOUNTER 2016-07-22 17:29 | Emergency (ER) | payer OTHER, MEDICAID ==
[2016-07-22 17:35] VITALS: RESP 20; TEMP 99.1
--- NOTE | 2016-07-22 17:39 | EDPHY ---
H & P Stated Complaint: AMS, unresponsive Time Seen by Provider: 07/22/16 17:29 HPI/ROS: CHIEF COMPLAINT: [place] sedated HISTORY OF PRESENT ILLNESS: The patient is a 41-year-old female well known to our department for a history of psychiatric disease including borderline personality, PTSD and schizoaffective disorder. Also uterine cancer type 2 diabetes, factor 5 Leiden, hypertension, hypothyroidism, obstructive sleep apnea , tobacco dependence, glaucoma, morbid obesity and frequent urinary tract infections. She was seen at [facility] yesterday and again today for dental extractions. She was given nitrous oxide for the procedure. After the procedure today she remains sedated and they had trouble waking her up and call 911. She was given Percocet to take at home which I suspect she took prior to her procedure today. REVIEW OF SYSTEMS: unable to obtain secondary to condition EXAM: GENERAL: Obese, sleepy, minimally responsive to stimulation verbally HEAD: Atraumatic, normocephalic. EYES: Pupils equal round and reactive to light, extraocular movements intact, mild nystagmus, sclera anicteric, conjunctiva are normal. ENT: TMs normal, nares patent, oropharynx clear without exudates. Moist mucous membranes. NECK: Normal range of motion, supple without lymphadenopathy or JVD. LUNGS: Breath sounds clear to auscultation bilaterally and equal. No wheezes rales or rhonchi. HEART: Regular rate and rhythm without murmurs, rubs or gallops. ABDOMEN: Soft, nontender, normoactive bowel sounds. No guarding, no rebound. No masses appreciated. BACK: No CVA tenderness, no spinal tenderness, step-offs or deformities EXTREMITIES: Normal range of motion, no pitting or edema. No clubbing or cyanosis. NEUROLOGICAL: somnolecent, Cranial nerves II through XII grossly intact. Slurred speech, normal gait. 5/5 strength, normal movement in all extremities, normal sensation PSYCH: Unable to assess SKIN: Warm, dry, normal turgor, no visible rashes or lesions. Source: Patient Exam Limitations: No limitations - Personal History LMP (Females 10-55): Unknown Current Tetanus/Diphtheria Vaccine: Yes Current Tetanus Diphtheria and Acellular Pertussis (TDAP): Yes Tetanus Vaccine Date: within 10 years - Medical/Surgical History Hx Asthma: No Hx Chronic Respiratory Disease: Yes Hx Diabetes: Yes Hx Cardiac Disease: Yes Hx Renal Disease: Yes Hx Cirrhosis: No Hx Alcoholism: No Hx HIV/AIDS: No Hx Splenectomy or Spleen Trauma: No Other PMH: MEDICAL SI FACTOR V LEIDEN DEFICIENCY, PE X 4, depression, ptsd, pulmonary htn, diabetes; kidney stones, bladder incontinence,recent UTI. SURGERY BACK SURGERY, TONSILLECTOMY, carpal tunnel, ovarian cyst, frequent overdoses, uterine CA - Family History Significant Family History: No pertinent family hx - Social History Smoking Status: Current some day smoker Alcohol Use: Sober Drug Use: None Constitutional: Initial Vital Signs Temperature (C) 37.3 C 07/22/16 17:32 Heart Rate 85 07/22/16 17:32 Respiratory Rate 20 07/22/16 17:32 O2 Sat (%) 94 07/22/16 17:32 O2 Delivery Mode Room Air O2 (L/minute) 2 Allergies/Adverse Reactions: thiothixene [Thiothixene] Allergy (Unknown, Verified 01/14/16 12:29) Unknown adhesive Allergy (Verified 01/14/16 12:29) dabigatran etexilate mesylate [From Pradaxa] Allergy (Verified 01/14/16 12:29) haloperidol [From Haldol] Allergy (Verified 01/14/16 12:29) haloperidol lactate [From Haldol] Allergy (Verified 01/14/16 12:29) hydromorphone HCl [From Dilaudid] Allergy (Verified 01/14/16 12:29) Home Medications: Medication Instructions Recorded Calcium Carbonate [Tums 500MG (*)] 500 mg PO QID PRN 01/03/16 LORazepam [Ativan (*)] 0.5 - 1 mg PO Q4 PRN #0 tab 01/09/16 Levothyroxine [Synthroid 75 mcg 75 mcg PO DAILY@06 #30 tab 01/09/16 (*)] Lisinopril [Zestril 20 mg (*)] 20 mg PO DAILY #30 tab 01/09/16 Zolpidem Tartrate [Ambien 5MG (*)] 10 mg PO HS PRN #30 tab 01/09/16 metFORMIN HCL [Glucophage 500 mg 1,000 mg PO BIDMEAL #120 tab 01/09/16 (*)] tiZANidine HCL [Zanaflex] 4 mg PO TID #90 tab 01/09/16 Albuterol [Proventil Inhaler HFA 1 - 2 puffs IH Q4H PRN 05/18/16 (*)] Cholecalciferol Vit D3 [Vitamin D3 4,000 units PO DAILY 05/18/16 (*)] Gabapentin [Neurontin 300 MG (*)] 300 mg PO TID 05/18/16 Letrozole [Femara 2.5 mg (*)] 2.5 mg PO DAILY 05/18/16 Polyethylene Glycol 3350 [Miralax 17 gm PO DAILY 05/18/16 17 gm (*)] Prazosin HCl [Minipress 1mg (*)] 3 mg PO HS 05/18/16 Tamsulosin HCl [Flomax 0.4 MG (*)] 0.4 mg PO DAILY 05/18/16 Travoprost Z 0.004% [Travatan Z 1 drops EACHEYE HS 05/18/16 0.004% (*)] oxyCODONE HCL [Oxycontin] 20 mg PO Q12 05/18/16 Medical Decision Making ED Course/Re-evaluation: 7:05 p.m. the patient is awake and alert. She is not desaturating. She is ambulatory. She denies having any pain or complaints. We will discharge her at this time. She denies suicidality. Differential Diagnosis: Partial list of the Differential diagnosis considered include but were not limited to; allergic reaction, anesthesia reaction, medication reaction, overdose and although unlikely based on the history and physical exam, I also considered stroke, seizure, arrhythmia, acute coronary disease. I discussed these differential diagnoses and the plan with the patient as well as the usual and expected course. The patient understands that the diagnosis is provisional and that in medicine we are not always correct and that further workup is often warranted. Usual and customary warnings were given. All of the patient's questions were answered. The patient was instructed to return to the emergency department should the symptoms at all worsen or return, otherwise to followup with the physician as we discussed. - Data Points Medications Given: Discontinued Medications Sodium Chloride (Ns) 1,000 mls @ 0 mls/hr IV ONCE ONE PRN Reason: Wide Open Stop: 07/22/16 18:01 Last Admin: 07/22/16 18:02 Dose: 1,000 mls Departure - Departure Disposition: Home, Routine, Self-Care Clinical Impression: Accidental medication overdose Qualifiers: Encounter type: initial encounter Qualified Code(s): T50.901A - Poisoning by unspecified drugs, medicaments and biological substances, accidental ( unintentional), initial encounter Condition: Fair Instructions: Narcotic Pain Management (ED) Referrals: Prieto Roach MD [Medical Doctor] - As per Instructions
[2016-07-22] MEDS ORDERED: NS 1,000 ML IV ONE (18:00)
[2016-07-22 18:31] VITALS: BP 147/82; PULSE 72; O2SAT 98
== END 2016-07-22 19:15 | disposition home or self-care (01) ==
LOC: EDUNIT#
DX: T41.0X1A Poisoning by inhaled anesthetics, accidental (unintentional), initial encounter (principal); T40.2X1A Poisoning by other opioids, accidental (unintentional), initial encounter; E11.9 Type 2 diabetes mellitus without complications; F17.200 Nicotine dependence, unspecified, uncomplicated; Z79.84 Long term (current) use of oral hypoglycemic drugs; Z85.42 Personal history of malignant neoplasm of other parts of uterus

== ENCOUNTER → 2017-08-31 | Outpatient (CLI) | payer OTHER, MEDICAID | LOC: FIMAGING 09:08 | PROVIDERS: ATTEND Family Medicine | DX: M54.6 Pain in thoracic spine (principal); M54.2 Cervicalgia; M51.34 Other intervertebral disc degeneration, thoracic region; M50.322 Other cervical disc degeneration at C5-C6 level ==

== ENCOUNTER → 2017-09-03 | Outpatient (CLI) | payer OTHER, MEDICAID | LOC: BHLMT 11:30 | PROVIDERS: ATTEND Internal Medicine Cardiovascular Disease | DX: R00.2 Palpitations (principal) | CPT/HCPCS: 93225-PO; 93226-PO ==

== ENCOUNTER → 2017-09-08 | Outpatient (CLI) | payer OTHER, MEDICAID | LOC: FCPNEURO 21:00 | PROVIDERS: ATTEND Psychiatry & Neurology Sleep Medicine | DX: G47.33 Obstructive sleep apnea (adult) (pediatric) (principal); G47.34 Idiopathic sleep related nonobstructive alveolar hypoventilation ==

== ENCOUNTER → 2017-09-08 | Outpatient (CLI) | payer OTHER, MEDICAID | LOC: BHFA 10:00 | PROVIDERS: ATTEND Internal Medicine Cardiovascular Disease | DX: R00.2 Palpitations (principal) ==

== ENCOUNTER 2017-09-09 09:24 | Inpatient (IN) | payer OTHER, MEDICAID ==
--- NOTE | 2017-09-09 09:30 | EDPHY ---
H & P Stated Complaint: Respiratory distress Time Seen by Provider: 09/09/17 09:25 Constitutional: Initial Vital Signs Heart Rate 95 09/09/17 09:24 Respiratory Rate 25 H 09/09/17 09:24 Blood Pressure 123/105 H 09/09/17 09:24 O2 Sat (%) 99 09/09/17 09:24 O2 Delivery Mode Bi-Pap,Heliox Allergies/Adverse Reactions: thiothixene [Thiothixene] Allergy (Unknown, Verified 01/14/16 12:29) Unknown adhesive Allergy (Verified 01/14/16 12:29) dabigatran etexilate mesylate [From Pradaxa] Allergy (Verified 01/14/16 12:29) haloperidol [From Haldol] Allergy (Verified 01/14/16 12:29) haloperidol lactate [From Haldol] Allergy (Verified 01/14/16 12:29) hydromorphone HCl [From Dilaudid] Allergy (Verified 01/14/16 12:29) Home Medications: Medication Instructions Recorded metFORMIN HCL [Glucophage 500 mg 1,000 mg PO BIDMEAL #120 tab 01/09/16 (*)] Albuterol [Proventil Inhaler HFA 1 - 2 puffs IH Q4H PRN 05/18/16 (*)] Cholecalciferol Vit D3 [Vitamin D3 4,000 units PO DAILY 05/18/16 (*)] Gabapentin [Neurontin 300 MG (*)] 300 mg PO BID@09,12 05/18/16 Letrozole [Femara 2.5 mg (*)] 2.5 mg PO DAILY 05/18/16 Tamsulosin HCl [Flomax 0.4 MG (*)] 0.4 mg PO DAILY 05/18/16 Travoprost Z 0.004% [Travatan Z 1 drops EACHEYE HS 05/18/16 0.004% (*)] Diclofenac Sodium [Voltaren 50 MG 50 mg PO TID PRN 09/09/17 (*)] Furosemide [Lasix 20 MG (*)] 20 mg PO BID 09/09/17 Gabapentin [Neurontin 300 MG (*)] 1,200 mg PO HS 09/09/17 HYDROcodone/APAP 10/325 [[place] 1 tab PO Q6 PRN 09/09/17 10325 (*)] Herbals/Supplements -Info Only 1 ea PO DAILY 09/09/17 Hydroxyzine Pamoate [Vistaril] 50 mg PO TID 09/09/17 LORazepam [Ativan (*)] 1 mg PO BID PRN 09/09/17 Methocarbamol [Robaxin 500 mg (*)] 500 mg PO TID PRN 09/09/17 [place]-3 Ethyl Est-Lovaza [Lovaza 1 2 gm PO BID 09/09/17 gm (*)] Paliperidone [Paliperidone ER] 6 mg PO DAILY 09/09/17 Potassium Cl [Klor-Con 20 meq (*)] 20 meq PO DAILY 09/09/17 Vitamin B Complex [Vitamin B 1 each PO DAILY 09/09/17 Complex (OTC)] Medical Decision Making - Diagnostics Imaging Results: Imaging Impressions Chest X-Ray 09/09/17 09:34 Impression: 1. No active cardiopulmonary disease seen. Imaging: I viewed and interpreted images myself ED Course/Re-evaluation: CHIEF COMPLAINT: Difficulty breathing HISTORY OF PRESENT ILLNESS: This patient is a 41-year-old female well known to our department for a history of psychiatric disease including borderline personality, PTSD and schizoaffective disorder. Pertinent medical history includes asthma, pulmonary hypertension, uterine cancer, type 2 diabetes, factor 5 Leiden, hypertension, hypothyroidism, obstructive sleep apnea. She arrives today via EMS for evaluation of respiratory distress onset upon waking. On EMS arrival, the patient had wheezes in all james. Crews administered Albuterol and Atrovent in transport with no major improvement, and the patient arrives on CPAP. Patient's respiratory rate was originally in the 20s but was around 12 with 100% SpO2 on arrival. Currently, she feels tired and endorses increased work of breathing, which causes her to feel frightened. She denies fever, chest pain, vomiting, or other associated symptoms. REVIEW OF SYSTEMS: A 10 point review of systems was performed and is negative with the exception of the elements mentioned in the history of present illness. PHYSICAL EXAM: HR, BP, O2 Sat, RR. Temp noted General Appearance: Diaphoretic. Alert, well hydrated, and non-toxic appearing. Head: Atraumatic without scalp tenderness or obvious injury Eyes: Pupils equal, round, reactive to light and accommodation, EOMI, no trauma , no injection. Ears: Clear bilaterally, no perforation, normal landmarks Nose: Atraumatic, no rhinorrhea, clear. Throat: There is no erythema or exudates, no lesions, normal tonsils, mucus membranes moist. Neck: Supple, 2+ carotid upstroke, nontender, no lymphadenopathy. Respiratory: End expiratory wheezes, decreased breath sounds throughout. Patient is on CPAP. Cardiovascular: Regular rate and rhythm, no murmurs, rubs, or gallops. Bilateral carotid, radial, dorsalis pedis, and posterior tibial pulses intact. Good capillary refill all extremities. Gastrointestinal: Abdomen is soft, nontender, non-distended, no masses, no rebound, no guarding, no peritoneal signs. Musculoskeletal: Normal active ROM of all extremities, atraumatic. Neurological: Alert, appropriate, and interactive. The patient has normal DTRs and non-focal cranial nerves, motor, sensory, and cerebellar exam. Skin: No rashes, good turgor, no nodules on palpation. Past medical history: Borderline personality, PTSD, schizoaffective disorder. Uterine cancer. Type 2 diabetes, factor 5 Leiden, Hypertension, Hypothyroidism, Obstructive sleep apnea, Tobacco dependence, Glaucoma, Morbid obesity, Frequent urinary tract infections. Medications include Robaxin. Metformin. Hydroxyzine HCl. Invega. Lovaza. Gabapentin. Percocet. Past surgical history: Noncontradictory Family history: Noncontributory. Social history: Single. Lives in [place]. Does not abuse tobacco, drugs, or alcohol. DIAGNOSTICS/PROCEDURES/CRITICAL CARE TIME: Critical care time spent by me, Dr. Meyer, exclusively with this patient was 40 minutes, exclusive of PA time and exclusive of procedures. The organ system at risk was respiratory and I gave DuoNeb with heliox, administered magnesium sulfate and Solu-Medrol, monitored the patient, and admitted the patient to stepdown to prevent worsening of the patients condition. DIFFERENTIAL DIAGNOSIS: The differential diagnosis for the patient's shortness of breath and hypoxemia included but was not limited to asthma exacerbation, pneumonia, myocardial infarction, acute mountain sickness, high altitude pulmonary edema, congestive heart failure, and pulmonary embolus. MEDICAL DECISION MAKIN42 y/o female presents with respiratory distress. 09:25 Met EMS at bedside. Respiratory therapy at bedside. Plan for DuoNeb on heliox. End expiratory wheezes and decreased breath sounds on auscultation. Plan to administer magnesium sulfate and Solu-Medrol for symptom relief. The patient states she has had and adverse reaction to steroids in the past, but that she was admitted two weeks ago for similar symptoms at [facility] in [place] and had successful treatment with steroid medication, so I will administer Solu-Medrol as above. The patient currently has excellent oxygen saturation and is able to speak in full sentences. Plan to admit for further management. Plan for chest x-ray, labs including CBC, chemistries, troponin, BNP. 10:06 Consulted with hospitalist service. Dr. Giron accepts admission to [facility] for difficulty breathing. 10:11 Reviewed chest x-ray. Negative for active disease processes. 11:20 Patient transferred to [facility] as planned above. - Data Points Laboratory Results: Laboratory Results 09/09/17 09:33 09/09/17 09:33 09/09/17 09/09/17 09:33 09:33 WBC 8.64 10^3/uL 10^3/uL (3.80-9.50) RBC 4.59 10^6/uL 10^6/uL (4.18-5.33) Hgb 14.3 g/dL g/dL (12.6-16.3) Hct 42.6 % % (38.0-47.0) MCV 92.8 fL fL (81.5-99.8) MCH 31.2 pg pg (27.9-34.1) MCHC 33.6 g/dL g/dL (32.4-36.7) RDW 14.8 % % (11.5-15.2) Plt Count 186 10^3/uL 10^3/uL (150-400) MPV 10.7 fL fL (8.7-11.7) Neut % (Auto) 58.0 % % (39.3-74.2) Lymph % (Auto) 28.5 % % (15.0-45.0) [place] % (Auto) 5.6 % % (4.5-13.0) Eos % (Auto) 6.8 % % (0.6-7.6) Baso % (Auto) 0.6 % % (0.3-1.7) Nucleat RBC Rel Count 0.0 % % (0.0-0.2) Absolute Neuts (auto) 5.02 10^3/uL 10^3/uL (1.70-6.50) Absolute Lymphs (auto) 2.46 10^3/uL 10^3/uL (1.00-3.00) Absolute Monos (auto) 0.48 10^3/uL 10^3/uL (0.30-0.80) Absolute Eos (auto) 0.59 10^3/uL H 10^3/uL (0.03-0.40) Absolute Basos (auto) 0.05 10^3/uL 10^3/uL (0.02-0.10) Absolute Nucleated RBC 0.00 10^3/uL 10^3/uL (0-0.01) Immature Gran % 0.5 % % (0.0-1.1) Immature Gran # 0.04 10^3/uL 10^3/uL (0.00-0.10) Sodium 146 mEq/L H mEq/L (135-145) Potassium 4.0 mEq/L mEq/L (3.3-5.0) Chloride 103 mEq/L mEq/L (97-110) Carbon Dioxide 28 mEq/l mEq/l (22-31) Anion Gap 15 mEq/L mEq/L (8-16) BUN 10 mg/dL mg/dL (7-23) Creatinine 0.7 mg/dL mg/dL (0.6-1.0) Estimated GFR > 60 Glucose 108 mg/dL H mg/dL (70-100) Calcium 9.2 mg/dL mg/dL (8.5-10.4) Troponin I < 0.012 ng/mL ng/mL (0.000-0.034) NT-Pro-B Natriuret Pep 93 pg/mL pg/mL (0-125) Medications Given: Discontinued Medications Albuterol/Ipratropium (Duoneb) 3 ml IH EDNOW ONE Stop: 09/09/17 09:34 Last Admin: 09/09/17 10:05 Dose: 3 ml Magnesium Sulfate (Magnesium Sulf 2 Gm (Premix)) 50 mls @ 50 mls/hr IV EDNOW ONE Stop: 09/09/17 10:32 Last Admin: 09/09/17 09:38 Dose: 50 mls Methylprednisolone Sodium Succinate (Solu-Medrol) 125 mg IVP EDNOW ONE Stop: 09/09/17 09:34 Last Admin: 09/09/17 09:37 Dose: 125 mg Departure - Departure Disposition: [facility] Inpatient Acute Clinical Impression: Respiratory distress Condition: Fair Report Scribed for: Clinton Meyer Report Scribed by: Jigna Miranda Date of Report: 09/09/17 Time of Report: 10:42
[2017-09-09] MEDS ORDERED: MAGNESIUM SULF 2 GM/WATER 50 ML IV ONE (09:33)
[2017-09-09] MEDS ORDERED: IPRATROPIUM/ALBUTEROL 3 ML DEYVIAL IH ONE (09:33)
[2017-09-09] MEDS ORDERED: methylPREDNISolone SOD SUCC 125 MG/2 ML VIAL IVP ONE (09:33)
[2017-09-09 09:45] LABS: PLATELET COUNT 186 10^3/uL (150-400)
[2017-09-09] MEDS ORDERED: LORazepam 0.5 MG TAB PO PRN (10:53)
[2017-09-09] MEDS ORDERED: ONDANSETRON 4 MG/2 ML VIAL IVP PRN (10:53)
[2017-09-09] MEDS ORDERED: ACETAMINOPHEN 325 MG TAB PO PRN (10:53)
[2017-09-09] MEDS ORDERED: LORazepam 2 MG/ML INJ IVP PRN (10:53)
[2017-09-09] MEDS ORDERED: NS 1,000 ML IV SCH (11:00)
--- NOTE | 2017-09-09 12:07 | ASMTCASEMG ---
Living Arrangements What is your living Answers: Alone arrangement? Who do you live with? Type Of Residence What kind of residence do Answers: Apartment you live in? Discharge Plan Comments Coordination Status Comments Notes: Patient is a 41yo single female well known to us for hx of psychiatric disorder including borderline personality, PTSD, and schizoaffective disorder. Patient comes to the hospital as a result of respiratory distress, onset upon waking. Patient has a significant medical hx of uterine cancer, Type 2 Diabetes, factor 5 leiden, hypertension, hypothyroidism, obstructive sleep apnea, tobacco dependence, glaucoma, morbid obesity, and asthma. PT has been ordered. D/C plan TBD. CM will follow. Date Signed: 09/09/2017 12:06 PM Electronically Signed By:Ava Aparicio LCSW
[2017-09-09] MEDS ORDERED: ALBUTEROL 60 PUFFS/8 GM MDI IH PRN (14:07)
[2017-09-09] MEDS ORDERED: LACTULOSE PO PRN (14:07)
[2017-09-09] MEDS ORDERED: DICLOFENAC SODIUM 50 MG TAB PO PRN (14:07)
[2017-09-09] MEDS ORDERED: D50W 25 GM/50 ML SYR IVP PRN (14:12)
[2017-09-09] MEDS ORDERED: LACTULOSE 20 GM/30 ML UDCUP PO PRN (14:23)
[2017-09-09] MEDS ORDERED: Herbals/Supplements -Info Only PO SCH (14:30)
[2017-09-09] MEDS: GABAPENTIN 300 MG CAP PO SCH ×3 (14:45→20:52)
[2017-09-09] MEDS: METHOCARBAMOL 500 MG TAB PO SCH ×3 (14:46→20:49)
[2017-09-09] MEDS: hydrOXYzine HCL 50 MG TAB PO SCH ×2 (15:20→20:52)
[2017-09-09] MEDS: OMEGA-3 ETHYL EST-LOVAZA 1 GM CAP PO SCH ×2 (15:21→20:51)
[2017-09-09] MEDS: CYANO/VITAMIN B12 1000 MCG TAB PO SCH (15:21)
[2017-09-09] MEDS: LETROZOLE 2.5 MG TAB PO SCH (15:29)
[2017-09-09] MEDS ORDERED: NON-FORMULARY NEW DRUG (Hydroxyzine Pamoate [Vistaril] 50 MG) PO SCH (16:00)
[2017-09-09] MEDS: CHOLECALCIFEROL VIT D3 1,000 UNITS TAB PO SCH (16:16)
[2017-09-09] MEDS: FUROSEMIDE 20 MG TAB PO SCH ×2 (16:17→20:51)
[2017-09-09] MEDS: VITAMIN B COMPLEX 1 EA CAP/TAB PO SCH (16:18)
[2017-09-09] MEDS: POTASSIUM CL 20 MEQ TAB PO SCH (16:18)
[2017-09-09] MEDS: predniSONE 20 MG TAB PO SCH (16:32)
[2017-09-09] MEDS: HYDROmorphONE/DILAUDID 1 MG/ML INJ IVP PRN ×2 (16:33→18:38)
[2017-09-09] MEDS: IPRATROPIUM/ALBUTEROL 3 ML DEYVIAL IH SCH ×2 (17:10→22:54)
--- NOTE | 2017-09-09 17:22 | PDGENHP ---
History and Physical - Chief Complaint Acute shortness of breath - History of Present Illness Primary care provider: Dr. Quyen Cunningham Primary sugar refiner: Dr. Ely HPI: 42-year-old female presenting with acute shortness of breath characterized as increased work of breathing, associated with audible wheezes, increased abdominal distension, increased anxiety, with onset of symptoms on the morning of presentation upon awakening during her sleep study. Patient was reportedly at a nearby sleep study center, and the immediately transported her to the emergency department. The patient had reportedly not been experiencing any increased oxygen needs overnight. She reports that the symptoms have occurred in the context of several months of what she describes as recurrent bronchitis, with numerous hospitalizations, emergency department, urgent care presentations, as well as cycles of antibiotics, steroids. She reports that she has been utilizing her home nebulizers and inhalers, without significant effect. She reports that she had recently discontinued her last round of steroids, and her shortness of breath has been slowly worsening over the past 3 days. She has noted increased abdominal distention since her last hospitalization at [facility], but this has been alleviated with Lasix. Overall, the patient provides a somewhat scattered history. She currently endorses dysuria, increased urinary frequency, and change in urine odor, change in urine color. History Information - Allergies/Home Medication List Allergies/Adverse Reactions: thiothixene [Thiothixene] Allergy (Unknown, Verified 01/14/16 12:29) Unknown adhesive tape Allergy (Verified 09/09/17 13:30) dabigatran etexilate mesylate [From Pradaxa] Allergy (Verified 09/09/17 13:31) Other-Enter Comments haloperidol [From Haldol] Allergy (Verified 01/14/16 12:29) haloperidol lactate [From Haldol] Allergy (Verified 01/14/16 12:29) olanzapine [From Zyprexa] Allergy (Verified 09/09/17 13:31) Other-Enter Comments Home Medications: Albuterol [Proventil Inhaler HFA (*)] 1 - 2 puffs IH Q4H PRN 05/18/16 [Last Taken Unknown] Cholecalciferol Vit D3 [Vitamin D3 (*)] 4,000 units PO DAILY 05/18/16 [Last Taken 09/08/17] Gabapentin [Neurontin 300 MG (*)] 300 mg PO BID@,12 05/18/16 [Last Taken 09/08 12:00] Letrozole [Femara 2.5 mg (*)] 2.5 mg PO DAILY 05/18/16 [Last Taken 09/08/17] Tamsulosin HCl [Flomax 0.4 MG (*)] 0.4 mg PO HS 05/18/16 [Last Taken 09/08/17] Travoprost Z 0.004% [Travatan Z 0.004% (*)] 1 drops EACHEYE HS 05/18/16 [Last Taken 09/08/17] Albuterol [Proventil Neb] 3 ml IH QID PRN 09/09/17 [Last Taken Unknown] Cyanocobalamin [Vitamin B12 (*)] 1,000 mcg PO DAILY 09/09/17 [Last Taken ] Diclofenac Sodium [Voltaren 50 MG (*)] 50 mg PO TID PRN 09/09/17 [Last Taken Unknown] Furosemide [Lasix 20 MG (*)] 20 mg PO BID 09/09/17 [Last Taken 09/08/17 21:00] Gabapentin [Neurontin 300 MG (*)] 1,200 mg PO HS 09/09/17 [Last Taken 09/08/17] HYDROcodone/APAP 10/325 [Eastman 10/325 (*)] 1 tab PO Q6 PRN 09/09/17 [Last Taken 09/08/17 21:00] Herbals/Supplements -Info Only 1 ea PO DAILY 09/09/17 [Last Taken Unknown] Hydroxyzine Pamoate [Vistaril] 50 mg PO TID 09/09/17 [Last Taken 09/08/17 21:00] LORazepam [Ativan (*)] 1 mg PO BID PRN 09/09/17 [Last Taken 09/09/17] Lactulose 15 - 30 ml PO TID PRN 09/09/17 [Last Taken Unknown] Methocarbamol [Robaxin 500 mg (*)] 1,000 mg PO HS 09/09/17 [Last Taken 09/08/17] Methocarbamol [Robaxin 500 mg (*)] 250 mg PO BID@09,12 09/09/17 [Last Taken Unknown] [place]-3 Ethyl Est-Lovaza [Lovaza 1 gm (*)] 2 gm PO BID 09/09/17 [Last Taken 21:00] Paliperidone [Paliperidone ER] 6 mg PO HS 09/09/17 [Last Taken 09/08/17] Potassium Cl [Klor-Con 20 meq (*)] 20 meq PO DAILY 09/09/17 [Last Taken 09/08/17 ] Vitamin B Complex [Vitamin B Complex (OTC)] 1 each PO DAILY 09/09/17 [Last Taken 09/08/17] I have personally reviewed and updated: family history, medical history, social history, surgical history - Past Medical History Additional medical history: Reactive airway disease, unclear whether this is asthma versus COPD. Borderline personality disorder with elements of PTSD. Reported uterine cancer. Diabetes mellitus type 2. Reported factor 5 Leiden disorder. Hypertension. Hypothyroidism. Obstructive sleep apnea. Previous suicide attempts with Coumadin. Morbid obesity - Surgical History Additional surgical history: Hysterectomy in January of 2016 - Family History Additional family history: Father with COPD and diabetes, mother with congestive heart failure in her 60s - Social History Smoking Status: Current some day smoker Alcohol Use: Occasionally Drug Use: None Additional social history: Patient reports she is normally independent in her ADLs Review of Systems Review of Systems: ROS: 10pt was reviewed & negative except for what was stated in HPI & below Respiratory: Reports: cough, shortness of breath, wheezing Gastrointestinal: Reports: abdominal distention Genitourinary: Reports: dysuria, frequency, other (Change in color and odor) Physical Exam Physical Exam: Temp Pulse Resp BP Pulse Ox 37.1 C 83 19 144/90 H 93 09/09/17 16:00 09/09/17 17:10 09/09/17 17:10 09/09/17 16:00 09/09/17 17:10 O2 (L/minute) 2 FIO2 (%) 40 Constitutional: not in pain, chronically ill appearing, obese, No no apparent distress (Mild distress, tearful), No uncomfortable Eyes: PERRL, anicteric sclera, EOMI Ears, Nose, Mouth, Throat: moist mucous membranes, hearing normal, ears appear normal, no oral mucosal ulcers Cardiovascular: regular rate and rhythym, no murmur, rub, or gallop, No edema Respiratory: reduced air movement (On expiration bilaterally), expiratory wheeze , No inspiratory crackles, No bronchial breath sounds, No respiratory distress Gastrointestinal: normoactive bowel sounds, soft, non-tender abdomen, distension , No guarding Genitourinary: no bladder tenderness, other (Suprapubic tenderness) Neurologic: AAOx3, sensation intact bilaterally, No weakness Psychiatric: not encephalopathic, thought process linear, anxious, flat affect, No agitated Lab Data & Imaging Review 09/09/17 09:33 09/09/17 09:33 WBC 8.64 10^3/uL (3.80-9.50) 09/09/17 09:33 RBC 4.59 10^6/uL (4.18-5.33) 09/09/17 09:33 Hgb 14.3 g/dL (12.6-16.3) 09/09/17 09:33 Hct 42.6 % (38.0-47.0) 09/09/17 09:33 MCV 92.8 fL (81.5-99.8) 09/09/17 09:33 MCH 31.2 pg (27.9-34.1) 09/09/17 09:33 MCHC 33.6 g/dL (32.4-36.7) 09/09/17 09:33 RDW 14.8 % (11.5-15.2) 09/09/17 09:33 Plt Count 186 10^3/uL (150-400) 09/09/17 09:33 MPV 10.7 fL (8.7-11.7) 09/09/17 09:33 Neut % (Auto) 58.0 % (39.3-74.2) 09/09/17 09:33 Lymph % (Auto) 28.5 % (15.0-45.0) 09/09/17 09:33 [place] % (Auto) 5.6 % (4.5-13.0) 09/09/17 09:33 Eos % (Auto) 6.8 % (0.6-7.6) 09/09/17 09:33 Baso % (Auto) 0.6 % (0.3-1.7) 09/09/17 09:33 Nucleat RBC Rel Count 0.0 % (0.0-0.2) 09/09/17 09:33 Absolute Neuts (auto) 5.02 10^3/uL (1.70-6.50) 09/09/17 09:33 Absolute Lymphs (auto) 2.46 10^3/uL (1.00-3.00) 09/09/17 09:33 Absolute Monos (auto) 0.48 10^3/uL (0.30-0.80) 09/09/17 09:33 Absolute Eos (auto) 0.59 10^3/uL (0.03-0.40) H 09/09/17 09:33 Absolute Basos (auto) 0.05 10^3/uL (0.02-0.10) 09/09/17 09:33 Absolute Nucleated RBC 0.00 10^3/uL (0-0.01) 09/09/17 09:33 Immature Gran % 0.5 % (0.0-1.1) 09/09/17 09:33 Immature Gran # 0.04 10^3/uL (0.00-0.10) 09/09/17 09:33 Sodium 146 mEq/L (135-145) H 09/09/17 09:33 Potassium 4.0 mEq/L (3.3-5.0) 09/09/17 09:33 Chloride 103 mEq/L (97-110) 09/09/17 09:33 Carbon Dioxide 28 mEq/l (22-31) 09/09/17 09:33 Anion Gap 15 mEq/L (8-16) 09/09/17 09:33 BUN 10 mg/dL (7-23) 09/09/17 09:33 Creatinine 0.7 mg/dL (0.6-1.0) 09/09/17 09:33 Estimated GFR > 60 09/09/17 09:33 Glucose 108 mg/dL (70-100) H 09/09/17 09:33 POC Glucose 152 mg/dL (70-100) H 09/09/17 13:58 Calcium 9.2 mg/dL (8.5-10.4) 09/09/17 09:33 Troponin I < 0.012 ng/mL (0.000-0.034) 09/09/17 09:33 NT-Pro-B Natriuret Pep 93 pg/mL (0-125) 09/09/17 09:33 Urine Color YELLOW 09/09/17 14:30 Urine Appearance HAZY 09/09/17 14:30 Urine pH 7.0 (5.0-7.5) 09/09/17 14:30 Ur Specific [place] 1.010 (1.002-1.030) 09/09/17 14:30 Urine Protein NEGATIVE (NEGATIVE) 09/09/17 14:30 Urine Ketones NEGATIVE (NEGATIVE) 09/09/17 14:30 Urine Blood 1+ (NEGATIVE) H 09/09/17 14:30 Urine Nitrate POSITIVE (NEGATIVE) H 09/09/17 14:30 Urine Bilirubin NEGATIVE (NEGATIVE) 09/09/17 14:30 Urine Urobilinogen NEGATIVE EU (0.2-1.0) 09/09/17 14:30 Ur Leukocyte Esterase 3+ (NEGATIVE) H 09/09/17 14:30 Urine RBC 15-25 /hpf (0-3) H 09/09/17 14:30 Urine WBC 50-182 /hpf (0-3) H 09/09/17 14:30 Ur Epithelial Cells TRACE /lpf (NONE-1+) 09/09/17 14:30 Urine Bacteria 2+ /hpf (NONE SEEN) H 09/09/17 14:30 Urine Mucus TRACE /lpf (NONE-1+) 09/09/17 14:30 Urine Glucose NEGATIVE (NEGATIVE) 09/09/17 14:30 Visualized and Interpreted Chest x-ray results: Yes Chest X-Ray results: no infiltrate Assessment & Plan Assessment: 42-year-old female presents with acute COPD exacerbation Plan: 1. COPD exacerbation. Acute, evidenced by diffuse expiratory wheezes, symptomatic shortness of breath, respiratory distress on presentation -although the patient appeared quite ill on presentation, her situation stabilized rapidly with breathing treatment, methylprednisolone and temporary BiPAP -the patient subsequently removed her BiPAP electively, and she is currently breathing comfortably at rest, however she does have diffuse expiratory wheezes on physical exam and reports significant shortness of breath with any level of activity -I have discussed patient's presentation with Dr. Edgar Singh, we agree that continuing nebs, steroids, respiratory monitoring is appropriate, the patient seems to be safe for transfer to [facility] unit at this time, will consult with Pulmonary tomorrow if the patient's status is not substantially improved -recommend follow up with outpatient sugar refiner -order outside records from [facility] to determine most recent treatment for COPD -transition to oral steroids today, scheduled duo nebs, antibiotics, Tessalon Perles as needed 2. Acute hypernatremia. Provide IV fluids, repeat level in a.m. 3. Morbid obesity. Increases patient's risk for worsening morbidity and/or mortality, also contributes to her reduced functional abilities, BMI 59 4. Chronic pain with continuous opiate dependency. Patient has not received any of her home pain medications this morning and she came directly from her sleep study, provide her pain medications per home schedule at this time to avoid withdrawal 5. Borderline personality disorder. Reviewed outside records including [address] Peterson Lantigua, he recounts fully the patient 's most recent inpatient Behavioral Health stabilization, which demonstrated coping mechanisms very consistent with borderline personality disorder, manipulating staff frequently, as well as manipulating her situation, discharged home with [facility] home care -continue patient's home behavioral health medications Diet. Regular Prophylaxis. High risk patient, Lovenox 60 twice daily Code. Full Disposition. Anticipated discharge uncertain this time, anticipated stay is greater than 48 hr reasonable medical necessity including acute COPD exacerbation with high risk comorbid morbid obesity chronic pain syndrome with opiate dependency and borderline personality disorder.
[2017-09-09] MEDS: INSULIN REGULAR HUMAN 100 UNIT/ML UNIT SC SCH ×2 (18:23→23:19)
[2017-09-09] MEDS: metFORMIN HCL 500 MG TAB PO SCH (19:03)
[2017-09-09] MEDS: LORazepam 0.5 MG TAB PO PRN (20:51)
[2017-09-09] MEDS: TAMSULOSIN HCL 0.4 MG CAP PO SCH (20:51)
[2017-09-09] MEDS: ENOXAPARIN 60 MG/0.6 ML SYR SC SCH (20:51)
[2017-09-09] MEDS: PALIPERIDONE 3 MG TAB.ER PO SCH (20:52)
[2017-09-09] MEDS: HYDROmorphONE/DILAUDID 2 MG TAB PO PRN (20:52)
[2017-09-09] MEDS: ONDANSETRON DISINTEGRATING 4 MG TAB PO PRN (20:53)
[2017-09-09] MEDS ORDERED: PALIPERIDONE 6 MG PO SCH (21:00)
[2017-09-09] MEDS: TRAVOPROST Z 0.004% 2.5 ML OPHT.BTL EACHEYE SCH (23:17)
[2017-09-10] MEDS: IPRATROPIUM/ALBUTEROL 3 ML DEYVIAL IH SCH ×4 (05:10→21:18)
[2017-09-10] MEDS: HYDROmorphONE/DILAUDID 2 MG TAB PO PRN ×4 (05:19→17:18)
[2017-09-10] MEDS: GABAPENTIN 300 MG CAP PO SCH ×3 (08:35→20:53)
[2017-09-10] MEDS: FUROSEMIDE 20 MG TAB PO SCH ×2 (08:35→20:53)
[2017-09-10] MEDS: ENOXAPARIN 60 MG/0.6 ML SYR SC SCH ×2 (08:35→20:54)
[2017-09-10] MEDS: predniSONE 20 MG TAB PO SCH (08:36)
[2017-09-10] MEDS: VITAMIN B COMPLEX 1 EA CAP/TAB PO SCH (08:36)
[2017-09-10] MEDS: CYANO/VITAMIN B12 1000 MCG TAB PO SCH (08:36)
[2017-09-10] MEDS: LETROZOLE 2.5 MG TAB PO SCH (08:36)
[2017-09-10] MEDS: METHOCARBAMOL 500 MG TAB PO SCH ×3 (08:36→20:52)
[2017-09-10] MEDS: metFORMIN HCL 500 MG TAB PO SCH ×2 (08:36→16:53)
[2017-09-10] MEDS: OMEGA-3 ETHYL EST-LOVAZA 1 GM CAP PO SCH ×2 (08:36→20:53)
[2017-09-10] MEDS: hydrOXYzine HCL 50 MG TAB PO SCH ×3 (08:36→20:53)
[2017-09-10] MEDS: POTASSIUM CL 20 MEQ TAB PO SCH (08:37)
[2017-09-10] MEDS: INSULIN REGULAR HUMAN 100 UNIT/ML UNIT SC SCH ×4 (08:42→20:27)
[2017-09-10] MEDS ORDERED: ENOXAPARIN 40 MG/0.4 ML SYR SC SCH (09:00)
[2017-09-10] MEDS: CHOLECALCIFEROL VIT D3 1,000 UNITS TAB PO SCH (09:51)
--- NOTE | 2017-09-10 10:25 | HOSPPROG ---
Hospitalist Progress Note Assessment/Plan: 1. COPD exacerbation. Acute -stabilized but still with significant dyspnea on exertion, not at baseline -continue nebs, steroids, respiratory monitoring, transfer to med surg unit when able -pulm consult requested, discussed care plan with Dr Singh -recommend o/p pulm rehab, primary pulm is Dr Ely at [facility] -IV rocephin -po steroids, will increase dose 2. Acute hypernatremia. -improved 3. Morbid obesity. BMI 59 4. Chronic pain with continuous opiate dependency. - pain medications per home schedule 5. Borderline personality disorder. Reviewed outside records including [address] Peterson Lantigua, he recounts fully the patient 's most recent inpatient Behavioral Health stabilization, which demonstrated coping mechanisms very consistent with borderline personality disorder, manipulating staff frequently, as well as manipulating her situation, discharged home with [facility] home care -continue patient's home behavioral health medications 6. UTI- e coli, sens pending, on rocephin Diet. Regular Prophylaxis. High risk patient, Lovenox 60 twice daily Code. Full Disposition. anticipated stay likely 1-2 more mdnts PCP- Quyen Cunningham MD, [facility] Subjective: Says her breathing is better than yesterday but 'still terrible.' Says can't even walk to door of room without feeling SOB- not normal for her but seems to have been gradually coming on over last 7-10days (I saw her in clinic almost 2 weeks ago and lung exam was CTA, no resp distress). Not eating much. Really scared, crying, about poor health in general. Objective: Vital Signs Temp Pulse Resp BP Pulse Ox 98.4 F 53 L 18 130/61 H 95 09/10/17 07:44 09/10/17 07:44 09/10/17 07:44 09/10/17 07:44 09/10/17 08:50 Laboratory Results 09/10/17 05:40 09/08/17 09/09/17 09/10/17 11:59 11:59 11:59 Intake Total 1605 Output Total 5569 Balance -3915 - Time Spent With Patient Time Spent with Patient: greater than 35 minutes Time Spent with Patient: Greater than 35 minutes spent on this patients care, greater than 50% of time spent counseling, educating, and coordinating care regarding the above mentioned plan. - Physical Exam Constitutional: obese Eyes: anicteric sclera Ears, Nose, Mouth, Throat: moist mucous membranes, hearing normal Cardiovascular: regular rate and rhythym Respiratory: no respiratory distress, reduced air movement, expiratory wheeze ( B apex) Skin: warm Psychiatric: interacting appropriately, not anxious, not encephalopathic, other (intermittently tearful) ICD10 Worksheet Patient Problems: Problems Problem Status Onset Respiratory distress Acute Acute psychosis Acute Intentional benzodiazepine overdose Acute Overdose of coumadin Acute Personality disorder Acute Schizo-affective psychosis Acute Suicidal ideation Acute
[2017-09-10] MEDS ORDERED: predniSONE 20 MG TAB PO SCH (10:30)
[2017-09-10] MEDS ORDERED: predniSONE 20 MG TAB PO ONE (10:45)
[2017-09-10] MEDS: LORazepam 0.5 MG TAB PO PRN ×2 (11:27→20:54)
--- NOTE | 2017-09-10 12:27 | PDMN ---
Medical Necessity Medical necessity: est los>2mn for COPD exacerbation, w/diffuse expiratory wheeze, & SOB, and acute hypernatremia admit for nebs, steroids, pulmonary consult, and respiratory monitoring; comorbid morbid obesity, chronic pain w/ opiate dependency, and borderline personality disorder; per order and H&P
--- NOTE | 2017-09-10 15:47 | ASMTCMCOM ---
CM Note CM Note Notes: I spoke with patient. She receives HCBS through [facility]. Her unskilled caregivers are from [facility], her skilled are from [facility], and she receives palliative care through [facility]. She says she recently was discharged from the PT/OT services but would like to restart. Her [facility] filter plant operator is out on medical leave, but she believes that the replacement is named Kimmy Valenzuela. I called [facility] to confirm but did not receive a call back. Patient will discharge home with these services. Her PCP Quyen Cunningham would like her to have pulmonary rehab; I'm not sure how to arrange this, but I did call Dr Cunningham's office ([place]) to see if their patient care manager Quyen could assist. I left a message for her. Case Management will follow. Date Signed: 09/10/2017 03:47 PM Electronically Signed By:Jordana Mays RN
[2017-09-10] MEDS: AZITHROMYCIN 250 MG TAB PO SCH (16:53)
[2017-09-10] MEDS: HYDROCODONE/APAP 10/325 TAB PO PRN (17:58)
--- NOTE | 2017-09-10 19:14 | GCON ---
[f rep st] CONSULTATION PULMONARY/CRITICAL CARE CONSULTATION DATE OF CONSULTATION: 09/10/2017 REQUESTING PROVIDER: Quyen Cunningham MD. REASON FOR REFERRAL: Evaluation and management of dyspnea and wheezing. HISTORY OF PRESENT ILLNESS: The patient is a 42-year-old woman who was admitted to the hospital yesterday with increased dyspnea and wheezing. She reports that she had some lung problems when she was an infant, but throughout adolescence and most of her adult life, she had minimal respiratory symptoms with just occasional episodes of bronchitis that completely resolved. She had not been on any inhalers or daytime oxygen until recently. In about March, she started to have increased shortness of breath and tiredness/fatigue with a modest amount of exertion. A few months ago, she started to have some wheezing. She was seen by a injection molding technician in [place], who apparently started her on 2 inhalers, but she does not think they helped much. She has also been using a nebulizer and reports that that helps a bit more. 3-4 weeks ago, she was admitted to [facility] and was started on prednisone due to increased wheezing and dyspnea. She was apparently also found to have pulmonary hypertension. She was discharged on oxygen and prednisone and reports that her symptoms improved significantly. She was only on the prednisone for a week or so before it was tapered off. She did all right for about 2 weeks after that but then had increased dyspnea and wheezing again. The patient reports that about 4-5 days ago, she started to have a marked increase in her shortness of breath, as well as wheezing. She has found all along that her inhalers have not been particularly helpful in improving her symptoms. She also reports increased abdominal distention but no increase in ankle edema or weight. She underwent a sleep study on the night prior to the admission and awoke quite short of breath and did not get any relief from her inhalers, so she was transferred to the emergency department. Upon initial presentation, she was started on BiPAP for a while and then transferred up to the ICU. She was taken off BiPAP not long after she got here and has been on oxygen ever since. She reports that her shortness of breath and wheezing are bit better but still not nearly at baseline. She feels that she gets more relief from the nebulizers than she does from her inhalers. She denies any fever. She has not had a productive cough. PAST MEDICAL HISTORY: 1. Type 2 diabetes. 2. SMITH. 3. Borderline personality disorder with elements of PTSD. 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 5. Obstructive sleep apnea. This was diagnosed at least 10 years ago. She uses CPAP and oxygen. Unclear if this therapy is still effective. She was undergoing a sleep study on the night prior to admission. 6. Pulmonary hypertension. ADMISSION MEDICATIONS: Include metformin, albuterol, Femara, Flomax, gabapentin , paliperidone, Lovaza, Robaxin, Vistaril, [place], Lasix, Voltaren, Robaxin, and lorazepam. ALLERGIES: Thiothixene, adhesive tape, dabigatran. FAMILY HISTORY: Positive for COPD, congestive heart failure, and diabetes. SOCIAL HISTORY: The patient continues to smoke at times. She drinks alcohol occasionally. REVIEW OF SYSTEMS: A 10-point review of systems adds nothing to the history of present illness. PHYSICAL EXAMINATION: GENERAL: The patient is awake and alert. She is in no acute distress. VITAL SIGNS: Blood pressure is 160/61 with a heart rate of 53. She is afebrile. Oxygen saturations are 100% on 5 L. HEENT: Normocephalic and atraumatic. No icterus. NECK: No JVD. Trachea is midline. CHEST: She has bilateral wheezes. CARDIAC: Regular rate and rhythm with a 2/6 systolic ejection murmur. EXTREMITIES: No clubbing or cyanosis. She has a trace of lower extremity edema. ABDOMEN: Soft and nontender. Bowel sounds are present. NEUROLOGIC: The patient is awake and alert. She has no gross motor or sensory deficits. LABORATORY: A chemistry group is normal. Blood sugars are in the mid 100s to low 200s. Liver function tests are remarkable only for a mildly elevated ALT at 54. BNP is 93. CBC is normal. Urinalysis shows 15-25 red blood cells and 50-182 white blood cells. A chest x-ray from September 09 is normal. Images reviewed by me. ASSESSMENT: 1. Dyspnea and wheezing. It appears the patient has had some recurrent bouts of acute bronchitis which have not completely resolved. She may also have a component of chronic bronchitis or asthma/chronic obstructive pulmonary disease. I do not have results of outpatient evaluations. Her course is a bit atypical for chronic obstructive pulmonary disease, given her very minimal smoking history. She does not carry a prior history of asthma but the fairly persistent wheezing could suggest that she now has developed a component of asthma. There do not appear to be any associated environmental allergens. She has been placed on inhalers by her injection molding technician in [place], but she is not sure what they are and the reconciliation here shows only a short-acting beta agonist. She may benefit from a daily controller medication with inhaled steroid to help improve her symptoms when she is tapered off the prednisone which was started here upon hospitalization. She has also been placed on ceftriaxone, and in the absence of discrete pneumonia, may benefit from switching to an oral agent such as azithromycin which also can have an anti- inflammatory effect and could be beneficial for bronchitis. 2. Obstructive sleep apnea. This is being treated with continuous positive airway pressure and oxygen, although the efficacy of this is not clear as she has not had any data downloads or repeat sleep studies in many years. 3. Pulmonary hypertension. The severity of this is unknown. I see that an echocardiogram was ordered just prior to admission here. I will have this performed during hospitalization. RECOMMENDATIONS: 1. The patient was encouraged to stop smoking. 2. Start Advair. 3. Add azithromycin to ceftriaxone which can probably be stopped. 4. Echocardiogram. 5. Bedside spirometry. 6. Continue nebulized bronchodilators. 7. The prednisone will be tapered once the patient starts to improve. /[id number]/MODL and [id number]/MODL MTDD
[2017-09-10] MEDS: ONDANSETRON DISINTEGRATING 4 MG TAB PO PRN (20:19)
[2017-09-10] MEDS: TAMSULOSIN HCL 0.4 MG CAP PO SCH (20:53)
[2017-09-10] MEDS: PALIPERIDONE 3 MG TAB.ER PO SCH (20:53)
[2017-09-10] MEDS: TRAVOPROST Z 0.004% 2.5 ML OPHT.BTL EACHEYE SCH (20:56)
[2017-09-10] MEDS: FLUTICASONE/SALMETER 500/50MCG DISKUS IH SCH (21:18)
[2017-09-11] MEDS: IPRATROPIUM/ALBUTEROL 3 ML DEYVIAL IH SCH ×3 (06:30→15:46)
[2017-09-11] MEDS: HYDROCODONE/APAP 10/325 TAB PO PRN ×2 (06:39→13:35)
[2017-09-11] MEDS ORDERED: predniSONE 20 MG TAB PO SCH (09:00)
[2017-09-11 09:05] VITALS: BP 119/97
[2017-09-11] MEDS: LORazepam 0.5 MG TAB PO PRN (09:05)
[2017-09-11] MEDS: POTASSIUM CL 20 MEQ TAB PO SCH (09:28)
[2017-09-11] MEDS: CHOLECALCIFEROL VIT D3 1,000 UNITS TAB PO SCH (09:29)
[2017-09-11] MEDS: metFORMIN HCL 500 MG TAB PO SCH (09:29)
[2017-09-11] MEDS: GABAPENTIN 300 MG CAP PO SCH ×2 (09:30→13:37)
[2017-09-11] MEDS: CYANO/VITAMIN B12 1000 MCG TAB PO SCH (09:30)
[2017-09-11] MEDS: OMEGA-3 ETHYL EST-LOVAZA 1 GM CAP PO SCH (09:30)
[2017-09-11] MEDS: METHOCARBAMOL 500 MG TAB PO SCH ×2 (09:30→13:37)
[2017-09-11] MEDS: AZITHROMYCIN 250 MG TAB PO SCH (09:32)
[2017-09-11] MEDS: VITAMIN B COMPLEX 1 EA CAP/TAB PO SCH (09:32)
[2017-09-11] MEDS: ENOXAPARIN 60 MG/0.6 ML SYR SC SCH (09:32)
[2017-09-11] MEDS: FUROSEMIDE 20 MG TAB PO SCH (09:32)
[2017-09-11] MEDS: hydrOXYzine HCL 50 MG TAB PO SCH (09:32)
[2017-09-11] MEDS: INSULIN REGULAR HUMAN 100 UNIT/ML UNIT SC SCH ×2 (09:33→14:07)
[2017-09-11] MEDS: LETROZOLE 2.5 MG TAB PO SCH (09:33)
[2017-09-11] MEDS: FLUTICASONE/SALMETER 500/50MCG DISKUS IH SCH (09:50)
[2017-09-11] MEDS ORDERED: POLYETHYLENE GLYCOL 3350 17 GM PKT PO PRN (10:12)
[2017-09-11] MEDS ORDERED: MAGNESIUM HYDROXIDE 30 ML UDCUP PO PRN (10:12)
[2017-09-11] MEDS ORDERED: BISACODYL 10 MG SUPP PR PRN (10:12)
[2017-09-11] MEDS ORDERED: SENNOSIDES/DOCUSATE SODIUM TAB PO SCH (10:15)
--- NOTE | 2017-09-11 12:34 | ASMTCMCOM ---
CM Note CM Note Notes: Spoke with Lena, patient's medical case worker with HCBS services. Lena states any OT/PT home care needs to be set up with [facility]. Lena has returned from leave so she will be contact vs Kimmy Valenzuela. CM will follow. Date Signed: 09/11/2017 12:33 PM Electronically Signed By:Ava Aparicio LCSW
--- NOTE | 2017-09-11 14:20 | HOSPPROG ---
Hospitalist Progress Note Assessment/Plan: Assessment: 42-year-old female presents with acute reactive airway exacerbation complicated by borderline personality disorder suspected chronic hypoxic respiratory failure 2/2 obesity hypoventilation syndrome Plan: 1. Reactive airway exacerbation. Acute, evidenced by diffuse expiratory wheezes , tachypnea, symptomatic shortness of breath on presentation -as outlined by Dr. Singh, patient does not have a significant smoking hx, but has been having fluctuating, debilitating pulm symptoms for the past several months, and, per hx report, seem to be reactive in nature -since it is likely that she has developed a chronic reactive airway disease, and only uses albuterol at home, advair has been initiated -given her acute exacerbation, she is back on prednisone, and she can either receive a 5 day burst, or rapid taper once acute airways sounding better -adjust nebs to PRN -ongoing azithro -appreciate ongoing pulm consult -recommend o/p pulm rehab, primary pulm is Dr Ely at [facility] -remains clinically unresolved today w/ ongoing exp wheezes, significant SOB w/ exertion -rec ongoing work w/ PT/OT as there is a significant deconditioning component, also requires ongoing pulm reassessments 2. Acute hypernatremia. Resolved 3. Morbid obesity. BMI 59 4. Chronic pain with continuous opiate dependency. Cont home Rx per home schedule, not pain Rx seeking 5. Borderline personality disorder. High risk of decompensating from a behavior health standpoint while hospitalized, highly recommend transfer to med surg unit, low stim environment, avoid enabling of splitting behaviors -continue patient's home behavioral health medications 6. UTI. Evidenced by dysuria+frequency+positive UA and UCx w/ Ecoli, s/p 3 days CTX, discontinue 7. Suspected chronic hypoxic respiratory failure 2/2 suspected obesity hypoventilation syndrome. Likely will require o2 chronically given habitus Diet. Regular Prophylaxis. High risk patient, Lovenox 60 twice daily Code. Full Disposition. ADD 09/12, pending resolution of above. PCP- Quyen Cunningham MD, [place] , please encourage patient to follow-up next week, Dr. Cunningham aware. High-level medical complexity, high risk for worsening morbidity given the complex nature of her medical and psychosocial issues outlined above. Subjective: patient reports significant fatigue, SOB w/ exertion Objective: Vital Signs Temp Pulse Resp BP Pulse Ox 36.9 C 61 14 119/97 H 95 05/18/18 08:00 09/11/17 08:00 09/11/17 08:00 09/11/17 08:00 09/11/17 08:00 Microbiology 09/09/17 14:30 Urine Culture - Final Urine,Clean Catch Escherichia Coli Laboratory Results 09/11/17 10:20 09/11/17 10:20 09/10/17 09/11/17 09/12/17 05:59 05:59 05:59 Intake Total 1605 3000 Output Total 3970 1550 Balance -2365 1450 - Physical Exam Constitutional: not in pain, chronically ill appearing, obese, No no apparent distress (mild distress, tearful), No uncomfortable Cardiovascular: regular rate and rhythym, no murmur, rub, or gallop (distant heart sounds), No edema Respiratory: expiratory wheeze, No inspiratory crackles, No bronchial breath sounds, No respiratory distress Gastrointestinal: normoactive bowel sounds, soft, non-tender abdomen, no palpable masses, No distension Neurologic: AAOx3 Psychiatric: not encephalopathic, thought process linear, anxious, depressed, other (tearful), No agitated ICD10 Worksheet Patient Problems: Problems Problem Status Onset Respiratory distress Acute Acute psychosis Acute Intentional benzodiazepine overdose Acute Overdose of coumadin Acute Personality disorder Acute Schizo-affective psychosis Acute Suicidal ideation Acute
[2017-09-11] MEDS ORDERED: IPRATROPIUM/ALBUTEROL 3 ML DEYVIAL IH PRN (15:52)
--- NOTE | 2017-09-11 17:55 | PDDCSUM ---
Discharge Summary Discharge Summary: DISCHARGE SUMMARY FOLLOW-UP ITEMS: 1. Recommend outpatient pulmonary rehab and pulmonary function test DATE OF ADMISSION: 09/09/2017 DATE OF DISCHARGE: 09/11/2017 DISCHARGE DIAGNOSES: 1. Acute reactive airway exacerbation 2. Acute hypernatremia 3. Morbid obesity with BMI 59 4. Chronic pain with continuous opiate dependency 5. Borderline personality disorder 6. Acute urinary tract infection 7. Suspected chronic hypoxic respiratory failure secondary to suspected obesity hypoventilation syndrome CONSULTATIONS: Pulmonary PROCEDURES / IMAGING: Chest imaging demonstrating no focal airspace disease CHIEF COMPLAINT: Acute shortness of breath SUBJECTIVE: Patient is requesting to be discharged at this time, she reports that her respiratory symptoms have stabilized PHYSICAL EXAM ON DISCHARGE: Systolic blood pressure 110-130, heart rate 50-70, afebrile overnight, satting 90% on room air, expiratory wheezes have substantially improved since presentation, no bronchial breath sounds, patient is tearful and anxious, morbidly obese, heart rhythm is regular, no lower extremity edema LABS ON DISCHARGE: Glucose 130-190 HOSPITAL COURSE BY PROBLEM: The patient presented with acute reactive airway exacerbation evidenced by diffuse expiratory wheezes, tachypnea, shortness of breath, hypoxia. She has been experiencing recurrent airway exacerbations during the past several months and is suspected that the patient may have developed an underlying reactive airway process. Given that she was experiencing an acute exacerbation, she received a burst of steroids, scheduled duo nebs, antibiotics. Her expiratory wheezes significantly improved, and the patient is requesting to be discharged home, and she will receive ongoing prednisone for 2 subsequent days, as needed bronchodilators as well as a new prescription for scheduled Advair. She received 2 subsequent days of azithromycin. We recommend that she follow up with her primary aromatherapist and have outpatient pulmonary rehab as well as pulmonary function test. The patient was also experiencing symptoms of urinary tract infection and she received 3 days of IV ceftriaxone. Although it is suspected that the patient has an element of chronic hypoxic respiratory failure secondary to suspected obesity hypoventilation syndrome, the patient's oxygen saturation was 90% on room air at the patient was requesting to be discharged, without supplemental oxygen. We recommend that she follow up with her outpatient aromatherapist and have her oxygen requirements reassessed. DISCHARGE MEDICATIONS: Please see official discharge medication reconciliation sheet in chart , Advair twice daily, azithromycin 250 for 2 subsequent days, prednisone 60 mg for 2 subsequent days, continue other home medications. DISCHARGE INSTRUCTIONS: Please follow up with her outpatient aromatherapist within the next several days , please follow up with primary care provider within the next week. TIME SPENT: Greater than 30 minutes were spent on direct patient care, as well as discharge planning and preparation.
--- NOTE | 2017-09-14 13:12 | ECHO ---
[email or web address] [address] [address] Main: [phone] Fax: Transthoracic Echocardiogram Name: GUERDA SMITH MR#: [id number] Study Date: 09/10/2017 Study Time: 03:23 PM Date of : 1975 Age: 42 year(s) Height: 165.1 cm (65 in.) Weight: 161.03 kg (355 lb.) BSA: 2.52 m2 Gender: Female Examination: Echo Indication: a fib Image Quality: Adequate Contrast: Requested by: Edgar Singh BP: 130 mmHg/61 mmHg Heart Rate: Rhythm: Indication: a fib Procedure Staff [employer]od[employer] Subcontractor: Toshia Cleary RDCS Reading Physician: Famliia Soto MD Requesting Provider: Conclusions: Normal size left ventricle. Normal global systolic LV function. EF is 64 %. Normal diastolic LV function. Moderate mitral valve regurgitation is present. Mild aortic valve regurgitation is present. Trivial tricuspid valve regurgitation. Right ventricular systolic pressure measures 38mmHg. Measurements: Chambers Valvular Assessment AV/MV Valvular Assessment TV/PV Normal Normal Normal Name Value Range Name Value Range Name Value Range Ao Yajaira (2D): 2.3 cm (1.4 cm-2.6 AV meanP mmHg ( - ) TR Vmax: 2.88 mm/s ( - ) cm) JESSY (VTI): 1.9 cm ( - ) TR PGmax: 33 mmHg ( - ) IVSd (2D): 1.1 cm (0.6 cm-1.1 MV E Vmax: 1.24 m/s ( - ) syst. PAP: 38 mmHg ( - ) cm) MV A Vmax: 0.91 m/s ( - ) PV Vmax: 1.30 m/s (0.6 m/s-0.9 LVDd (2D): 5.0 cm (3.9 cm-5.3 MV E/A: 1.36 ( - ) m/s) cm) MV PHT: 0.082 s ( - ) PV PGmax: 7 mmHg ( - ) LVDs (2D): 2.8 cm (2.1 cm-4 cm) MVA (PHT): 2.7 s ( - ) LVPWd (2D): 1.1 cm ( - ) LVOTd 2.0 cm 2.0 cm mm LVEF (BP): 64 % (>=55 %) RVDd(2D): 3.0 cm (1.9 cm-3.8 cmmm) Continued Measurements: Chambers Valvular Assessment AV/MV Valvular Assessment TV/PV Patient: GUERDA SMITH Study Date: 09/10/2017 Page 1 of 2 03:23 PM Name Value Name Value Name Value LADs: 4.5 cm MV DecTime: 275 m/s CVP (est.): 5 mmHg LADs Lon.1 cm MV E' Septal: 0.10 m/s LA Area: 24.9 cm2 MV E/E' Septal: 13.00 LA Volume: 81 ml MV E/E' Lateral: 12.70 LA Volume Index: 32.1 ml/m2 RA Area: 15.6 cm2 Additional Vessels Name Value Ao Ascendin.1 cm Inferior Vena Cava: 1.0 cm Findings: Left Ventricle: Normal size left ventricle. No LV hypertrophy. Normal global systolic LV function. EF is 64 %. No regional wall motion abnormality. Normal diastolic LV function. Right Ventricle: Normal size right ventricle. Normal RV function. Left Atrium: The left atirum is borderline dilated. Right Atrium: The right atrium is normal in size. Mitral Valve: The mitral valve is normal in appearance and function. Moderate mitral valve regurgitation is present. No mitral stenosis is present. Aortic Valve: The aortic valve is normal in appearance and function. Mild aortic valve regurgitation is present. No aortic valve stenosis is present. Tricuspid Valve: The tricuspid valve is normal in appearance and function. Trivial tricuspid valve regurgitation. The pulmonary artery pressure is normal. Right ventricular systolic pressure measures 38mmHg. Pulmonic Valve: The pulmonic valve is normal in appearance and function. There is no pulmonic regurgitation seen. Aorta: The aorta is normal. Normal size aortic root measuring 2.3 cm. Normal size ascending aorta measuring 3.1 cm. IVC: The IVC is normal sized. Pericardium: No pericardial effusion. (No Signature Object) Patient: GUERDA SMITH Study Date: 09/10/2017 Page 2 of 2 03:23 PM [id number]
== END 2017-09-11 17:15 | disposition home or self-care (01) | DRG 191 ==
LOC: EDUNIT# → UNDOADMIN 10:09 → F2N 11:36
PROVIDERS: ADMIT Internal Medicine; ATTEND Internal Medicine
DX: J44.1 Chronic obstructive pulmonary disease with (acute) exacerbation (principal); E87.0 Hyperosmolality and hypernatremia; Z68.43 Body mass index [BMI] 50.0-59.9, adult; E66.2 Morbid (severe) obesity with alveolar hypoventilation; F11.20 Opioid dependence, uncomplicated; G89.29 Other chronic pain; J96.11 Chronic respiratory failure with hypoxia; N39.0 Urinary tract infection, site not specified; B96.20 Unspecified Escherichia coli [E. coli] as the cause of diseases classified elsewhere; F60.3 Borderline personality disorder
CPT/HCPCS: 96365; 97161-GP; 97166-GO; G8978-GP-CJ; G8979-GP-CI; G8987-GO-CJ; G8988-GO-CI; J0696; J1170; J1650; J1815; J2060; J2930; J3475; J7512

== ENCOUNTER → 2017-09-30 | Outpatient (CLI) | payer OTHER, MEDICAID | LOC: FCPNEURO 21:00 | PROVIDERS: ATTEND Psychiatry & Neurology Sleep Medicine | DX: G47.33 Obstructive sleep apnea (adult) (pediatric) (principal); G47.34 Idiopathic sleep related nonobstructive alveolar hypoventilation; G47.61 Periodic limb movement disorder ==

== ENCOUNTER 2018-04-23 14:10 | Inpatient (IN) | payer OTHER, MEDICAID ==
[2018-04-23] MEDS ORDERED: ACETAMINOPHEN 325 MG TAB PO PRN (15:51)
[2018-04-23] MEDS ORDERED: ONDANSETRON 4 MG/2 ML VIAL IVP PRN (15:51)
[2018-04-23] MEDS ORDERED: LORazepam 0.5 MG TAB PO PRN (15:51)
--- NOTE | 2018-04-23 16:16 | PDGENHP ---
History and Physical History and Physical: Chief complaint: nausea and vomiting and abdominal pain History of present illness: The pt is a 42yo morbidly obese, medically complex F who was sent to the hospital for direct admission to get EGD by her PCP Dr. Cunningham. Patient has had chronic RUQ abd pain for the last 2 years and patient has subsequently been diagnosed with liver cirrhosis and gall bladder disease, both of which were being followed at the [facility]. In the last 6 weeks, she has experienced frequent new nausea and vomiting, which is associated with moderately increased RUQ abdominal pain. She saw her PCP 3 weeks ago and since then, she has had constant nausea. She is unable to consume her meds, food, or liquids because of frequent vomiting/dry retching. Vomitus is described to be bilious and is worse with: AM time, bending over because it presses on RUQ, or eating/smelling/seeing greasy foods. Symptoms are better with : taking deep, slow breaths and peppermint oil. Cannabis used to help but now it does not help anymore. She had gone to [facility] ED on Apr 18, where a CT abd/pelv w/ contrast was performed and only revealed a ventral hernia (also painful) and nephrolithiasis. They were unable to visualize the gall bladder with US, however. Patient believes her current problem stems from her gall bladder because in the past she was told her gall bladder was diseased and needed to be removed. However, she has been considered too high risk to undergo surgery with her morbid obesity, cirrhotic liver, and other medical comorbidities. She is very upset/tearful about her medical condition and feels frustrated because her specialists at the [facility] have been unable to help her. 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) Chronic Abdominal pain, RUQ Cholelithiasis/Gall bladder disease Cirrhosis - SMITH vs AI hepatitis IBS - with intermittent nausea/diarrhea/abd pain Hiatal hernia w/ GERD Ventral abdominal hernia, moderately painful HTN CAD Multivalvular disease Murmur, lifelong Vocal cord dysfunction Adverse reactions to anesthesia Asthma OHS Oxygen dependent - intermittently at home 2-3L GERONIMO, on CPAP Pulmonary HTN H/o PE Thrombopihila, Hx PE, Factor V Leiden (+) Endometrial/ovarian cancer - s/p resection, on po chemo Urinary incontinence, 2/2 surgery/radiation Nephrolithiasis Pilonidal cysts, s/p surgery Schizoaffective disorder with anxiety/depression PTSD Glaucoma Past surgical history: BACK SURGERY HAND SURGERY- CTS release TYE-BSO - Feb 20, 2016 LITHOTRIPSY OVARIAN CYST REMOVAL TONSILLECTOMY Medications: please refer to med rec form for extensive med list. Allergies: Adhesive Other Reaction 11/14/2015 Banana MOUTH SORES 02/22/2016 Haldol decanoate [haloperidol decanoate] Other Reaction 12/06/2014 Navane [thiothixene] UNKNOWN (SEE COMMENTS) 11/11/2007 Pradaxa [dabigatran etexilate] BLEEDING 11/14/2015 Zyprexa [olanzapine] Other Reaction 02/03/2016 Levaquin - unk reaction. Social history: Former Smoker 1/2ppd x 4yrs, quit about 1.5ya. Denies alcohol use. +cannabis use - edibles daily, but occasionally smokes it. Family History: Breast cancer Paternal Grandmother age 41 Diabetes type 2 - multiple family members. Father- CAD, smoker, DM2, ESRD, HLD, HTN, kidney stones. Mother- MS, DM 2, CVA, liver cirrhosis from SMITH Uterine (endometrial) cancer Maternal Grandmother, Maternal Great-Grandmother Prostate cancer Paternal Grandfather 73 Breast cancer Maternal Aunt 55 - double mastectomy Review of systems: 10 point review of systems was conducted and is negative for non-chronic symptoms except per HPI. Physical exam: Vitals: Reviewed General: The patient is a super morbidly obese female who is A&Ox3 and in mild acute distress. HEENT: normocephalic, extraocular movements intact, conjunctivae clear. Nares and oral mucosa pink and slightly moist. Neck: trachea midline, no visible masses, no external lesions. CV: +S1/S2, tachy rate and reg rhythm. No audible murmurs, but exam is limited by large body habitus Resp: unlabored breathing, lungs clear to auscultation w/o rales, rhonchi, or wheezing. Abd: soft and nondistended, bowel sounds present. +tenderness to palpation in right upper quadrant and left/inferior to umbilicus. Musculoskeletal: Normal gait. Neuro: cranial nerves II - XII grossly intact. Intact gross motor and sensory function. Psych: anxious, tearful mood/appropriate affect. Very upset about her mother's 1.5yr ago; she is worried she will end up like her mother. Skin: No rash. Heme/lymph: No peripheral edema. Labs: WBC 7.5 to hemoglobin 15.4 platelets 190. Sodium 138 potassium 3.4. AST 72 ALT 80 alk-phos 136. TSH 2.4. Lipase 119. Troponin I less than 0.012. Other Data: Outside report review-CT abdomen/pelvis with contrast from 04/18 [facility]: No clear evidence of acute intra-abdominal abnormality. None obstructive 6 mm right renal calculus. Indeterminate 16 mm lesion at the right kidney which may be hemorrhagic cyst. Small bowel containing midline ventral hernia (5cm fascia defect) without bowel obstruction. Impression and plan: Intractable nausea and vomiting Hypokalemia, 2/2 vomiting RUQ abd pain, chronic -likely from gall bladder disease/cholelithiasis. Other Ddx etiology: IBS flare, gastroparesis, cyclic vomiting syndrome, cannabinoid hyperemesis syndrome , hepatitis -Consulted GI. -Check abd US. -Consider HIDA scan and Gen Surg consult. -prn antiemetics, analgesics. -IVF with potassium replacement. Ventral hernia w/ abd pain, chronic -moderately symptomatic, but doubt that bowel is strangulated/ischemic based on labs/presentation. -Surgery not indicated at this time. -Recommend to follow up with Gen Surg. Morbid Obesity Hx anesthesia adverse reactions -Concern for pt to get EGD w/ anesthesia; is very high risk. -Also very high surgical risk of CV/resp adverse events Other Chronic issues: IBS - with intermittent nausea/diarrhea/abd pain Liver Cirrhosis- 2/2 SMITH vs AI hepatitis Splenomegaly DM 2 -on metformin normally. -SSI in hospital. 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 -O2 prn, CPAP QHS. ISU. Continue inhalers/nebs prn. -PT/OT/ST if indicated. -Dietary consult. -VTE ppx - SCDs for now. Holding med in case pt undergoes procedure in AM. -Code status - Full. -Inpatient status for >2 midnight stay.
[2018-04-23] MEDS: ONDANSETRON DISINTEGRATING 4 MG TAB PO PRN (16:54)
[2018-04-23 16:58] LABS: PLATELET COUNT 190 10^3/uL (150-400)
[2018-04-23] MEDS: NS W/ 20 KCl/L 1,000 ML IV SCH (18:10)
[2018-04-23] MEDS ORDERED: METOCLOPRAMIDE 10 MG TAB PO PRN (19:00)
[2018-04-23] MEDS ORDERED: DICLOFENAC SODIUM 1% 100 GM GEL TP PRN (19:00)
[2018-04-23] MEDS ORDERED: ALBUTEROL 3 ML DEYVIAL IH PRN (19:00)
[2018-04-23] MEDS ORDERED: ALBUTEROL 60 PUFFS/8 GM MDI IH PRN (19:00)
[2018-04-23] MEDS ORDERED: D50W 25 GM/50 ML SYR IVP PRN (19:41)
[2018-04-23] MEDS: PROMETHAZINE HCL 25 MG/ML INJ IVP PRN (19:58)
[2018-04-23] MEDS ORDERED: NON-FORMULARY NEW DRUG (Hydroxyzine Pamoate [Vistaril] 50 MG) PO SCH (21:00)
[2018-04-23] MEDS ORDERED: TAMSULOSIN HCL 0.4 MG CAP PO SCH (21:00)
[2018-04-23] MEDS ORDERED: GABAPENTIN 250 MG/5 ML 30 ML BOTTLE PO SCH (21:00)
[2018-04-23] MEDS ORDERED: METHOCARBAMOL 500 MG TAB PO SCH (21:00)
[2018-04-23] MEDS: HYDROCODONE/APAP 5/325 TAB PO PRN (21:25)
[2018-04-23] MEDS: METOCLOPRAMIDE 10 MG/2 ML VIAL IVP PRN (21:42)
[2018-04-23] MEDS: BUDESONIDE/FORMOTEROL 160/4.5 60 PUFFS/MDI IH SCH (22:13)
[2018-04-23] MEDS: GABAPENTIN 300 MG CAP PO SCH (23:47)
[2018-04-23] MEDS: METHOCARBAMOL 500 MG TAB PO SCH (23:48)
[2018-04-23] MEDS: TRAVOPROST Z 0.004% 2.5 ML OPHT.BTL EACHEYE SCH (23:51)
[2018-04-23] MEDS: FUROSEMIDE 20 MG TAB PO SCH (23:59)
[2018-04-24] MEDS: OMEGA-3 ETHYL EST-LOVAZA 1 GM CAP PO SCH ×3 (00:01→20:06)
[2018-04-24] MEDS: NS W/ 20 KCl/L 1,000 ML IV SCH ×2 (03:25→17:39)
[2018-04-24] MEDS: LORazepam 1 MG TAB PO PRN ×2 (03:46→10:59)
[2018-04-24] MEDS: LEVOTHYROXINE 50 MCG TAB PO SCH (04:47)
[2018-04-24 05:05] LABS: PLATELET COUNT 164 10^3/uL (150-400)
[2018-04-24] MEDS: PROMETHAZINE HCL 25 MG/ML INJ IVP PRN ×2 (08:11→16:13)
[2018-04-24] MEDS: OXYCODONE/APAP 5/325 TAB PO PRN ×2 (08:12→15:37)
[2018-04-24] MEDS: DICYCLOMINE 20 MG TAB PO SCH (08:13)
[2018-04-24] MEDS: hydrOXYzine HCL 50 MG TAB PO SCH ×4 (08:13→21:14)
[2018-04-24] MEDS: GABAPENTIN 300 MG CAP PO SCH ×2 (08:14→20:06)
[2018-04-24] MEDS: RIFAXIMIN 550 MG TAB PO SCH ×3 (08:14→20:06)
[2018-04-24] MEDS: METHOCARBAMOL 500 MG TAB PO SCH ×2 (08:14→20:06)
[2018-04-24] MEDS: LETROZOLE 2.5 MG TAB PO SCH (08:14)
[2018-04-24] MEDS: FUROSEMIDE 20 MG TAB PO SCH ×2 (08:14→20:05)
[2018-04-24] MEDS: INSULIN LISPRO 100 UNIT/ML SC SCH ×3 (08:28→16:26)
[2018-04-24] MEDS: BUDESONIDE/FORMOTEROL 160/4.5 60 PUFFS/MDI IH SCH ×2 (10:22→21:42)
[2018-04-24] MEDS ORDERED: ENOXAPARIN 40 MG/0.4 ML SYR SC SCH (10:45)
--- NOTE | 2018-04-24 10:57 | HOSPPROG ---
Hospitalist Progress Note Assessment/Plan: RUQ abd pain, chronic - with intractable nausea/vomiting * says has had gallbladder problems for many years with previous stones, sludge * symptoms seem to localize to gallbladder and alk phos is up a little * will get HIDA scan and have surgery see. * she is high operative risk for several reasons - cirrhosis (although seesm mild), previous problems with anesthesia, factor v leiden, obesity but unable to eat now. * start invanz mostly for UTI but can see if that helps abd pain * other possibility is pancreatic insufficiency -admits to steatorrhea * will check pancreatic elastase and spot stool fat * can empirically try creon when she starts eating Ventral hernia w/ abd pain, chronic -moderately symptomatic, but doubt that bowel is strangulated/ischemic based on labs/presentation. -Surgery not indicated at this time. -Recommend to follow up with Gen Surg. Morbid Obesity Hx anesthesia adverse reactions -Concern for pt to get EGD w/ anesthesia; is very high risk. -Also very high surgical risk of CV/resp adverse events Other Chronic issues: IBS - with intermittent nausea/diarrhea/abd pain Liver Cirrhosis- 2/2 SMITH vs AI hepatitis and Splenomegaly DM 2 -on metformin normally. -SSI in hospital. Factor V leiden/h/o PE - start lovenox 40 bid. may need 60 bid Hypothyroid HTN CAD Multivalvular disease Asthma OHS Oxygen dependent - occasionally at home 2-3L GERONIMO, on CPAP Pulmonary HTN Endometrial/ovarian cancer - s/p resection, on po chemo Nephrolithiasis Schizoaffective disorder with anxiety/depression PTSD Glaucoma Subjective: feels a little better. still with ruq pain, nausea Objective: Vital Signs Temp Pulse Resp BP Pulse Ox 36.7 C 59 L 16 103/79 92 04/24/18 08:00 04/24/18 08:00 04/24/18 08:00 04/24/18 08:00 04/24/18 08:00 Laboratory Results 04/24/18 04:46 04/24/18 04:46 04/23/18 04/24/18 04/25/18 05:59 05:59 05:59 Intake Total 1800 Output Total 300 Balance 1500 - Physical Exam Constitutional: no apparent distress, appears nourished, not in pain, obese Eyes: anicteric sclera Cardiovascular: regular rate and rhythym Respiratory: no respiratory distress Gastrointestinal: normoactive bowel sounds, other (ruq tenderness with positive seymour's) Skin: warm Neurologic: AAOx3 Psychiatric: interacting appropriately, not anxious, not encephalopathic, thought process linear ICD10 Worksheet Patient Problems: Problems Problem Status Onset Acute psychosis Acute Intentional benzodiazepine overdose Acute Overdose of coumadin Acute Personality disorder Acute Respiratory distress Acute Schizo-affective psychosis Acute Suicidal ideation Acute
[2018-04-24] MEDS: LISINOPRIL 20 MG TAB PO SCH (10:59)
--- NOTE | 2018-04-24 12:01 | ASMTCMCOM ---
CM Note CM Note Notes: Pt is a direct admit from Dr Cunningham's office. She has a complex medical hx and significant comorbidities. Primarily she is here for n/v. DC needs uncertain, PT/OT will eval, LATONYA w/f. DC Plan: TBD Date Signed: 04/24/2018 12:00 PM Electronically Signed By:Ginger Kimball RN
[2018-04-24] MEDS ORDERED: PROPOFOL/EMULSION 500 MG/50 ML BOTTLE IV ONE ×2 (12:15→12:27)
[2018-04-24] MEDS ORDERED: NALOXONE HCL 0.4 MG/ML INJ IVP PRN (12:42)
[2018-04-24] MEDS ORDERED: ONDANSETRON 4 MG/2 ML VIAL IVP PRN (12:42)
--- NOTE | 2018-04-24 12:44 | PDANEPAE ---
ANE History of Present Illness EGD ANE Past Medical History - Pulmonary History Hx Oxygen in Use at Home: No Hx Sleep Apnea: Yes - Endocrine History Hx Diabetes: Yes - Chronic Pain History Chronic Pain: Yes ANE Review of Systems Review of Systems: ANE Patient History - Allergies Allergies/Adverse Reactions: thiothixene [Thiothixene] Allergy (Unknown, Verified 01/14/16 12:29) Unknown adhesive tape Allergy (Verified 09/09/17 13:30) dabigatran etexilate mesylate [From Pradaxa] Allergy (Verified 09/09/17 13:31) Other-Enter Comments haloperidol [From Haldol] Allergy (Verified 01/14/16 12:29) haloperidol lactate [From Haldol] Allergy (Verified 01/14/16 12:29) olanzapine [From Zyprexa] Allergy (Verified 09/09/17 13:31) Other-Enter Comments - Home Medications Home Medications: Albuterol [Proventil Inhaler HFA (*)] 1 - 2 puffs IH Q4H PRN 05/18/16 [Last Taken 04/22/18] Gabapentin [Neurontin 300 MG (*)] 300 mg PO DAILY 05/18/16 [Last Taken 04/22/18] Letrozole [Femara 2.5 mg (*)] 2.5 mg PO DAILY 05/18/16 [Last Taken 04/22/18] Tamsulosin HCl [Flomax 0.4 MG (*)] 0.4 mg PO HS 05/18/16 [Last Taken 04/22/18] Travoprost Z 0.004% [Travatan Z 0.004% (*)] 1 drops EACHEYE HS 05/18/16 [Last Taken 04/22/18] Albuterol [Proventil Neb] 3 ml IH QID PRN 09/09/17 [Last Taken 04/22/18] Diclofenac Sodium [Voltaren 50 MG (*)] 50 mg PO BID 09/09/17 [Last Taken ] Furosemide [Lasix 20 MG (*)] 20 mg PO BID 09/09/17 [Last Taken 04/22/18] Gabapentin [Neurontin 300 MG (*)] 1,200 mg PO HS 09/09/17 [Last Taken 04/22/18] HYDROcodone/APAP 10/325 [Muse 10/325 (*)] 1 tab PO Q6 PRN 09/09/17 [Last Taken 04/22/18] Hydroxyzine Pamoate [Vistaril] 50 mg PO BID 09/09/17 [Last Taken 04/22/18] LORazepam [Ativan (*)] 1 mg PO BID PRN 09/09/17 [Last Taken 04/22/18] Methocarbamol [Robaxin 500 mg (*)] 1,000 mg PO HS 09/09/17 [Last Taken 04/22/18] Methocarbamol [Robaxin 500 mg (*)] 250 mg PO DAILY 09/09/17 [Last Taken 04/22/18 ] [place]-3 Ethyl Est-Lovaza [Lovaza 1 gm (*)] 2 gm PO BID 09/09/17 [Last Taken ] Potassium Cl [Klor-Con 20 meq (*)] 20 meq PO DAILY 09/09/17 [Last Taken 04/22/18 ] Budesonide/Formoterol 160/4.5 [Symbicort 160-4.5 Mcg Inh (*)] 2 puffs IH BID [Last Taken 04/22/18] Diclofenac Sodium 1% [Voltaren Gel (*)] 1 gm TP BID PRN 04/23/18 [Last Taken ] Dicyclomine [Bentyl 20 MG (*)] 20 mg PO DAILY 04/23/18 [Last Taken 04/22/18] Herbals/Supplements -Info Only 1 ea PO DAILY 04/23/18 [Last Taken 04/22/18] Levothyroxine [Synthroid 50 mcg (*)] 50 mcg PO DAILY06 04/23/18 [Last Taken ] Lisinopril [Zestril 20 mg (*)] 20 mg PO DAILY 04/23/18 [Last Taken 04/22/18] Metoclopramide [Reglan 10 mg tab (*)] 10 mg PO Q6H PRN 04/23/18 [Last Taken ] Ondansetron Odt [Zofran Odt 4 mg (*)] 4 mg PO Q8H PRN 04/23/18 [Last Taken 04/22] Promethazine HCl [Phenergan 25mg (*)] 25 mg PO Q6H PRN 04/23/18 [Last Taken ] Rifaximin [Xifaxan] 550 mg PO BID 04/23/18 [Last Taken 04/22/18] traMADol HCL [Tramadol HCl ER] 100 mg PO DAILY 04/23/18 [Last Taken 04/22/18] - Smoking Hx Smoking Status: Current some day smoker ANE Labs/Vital Signs - Labs Result Diagrams: 04/24/18 04:46 04/24/18 04:46 - Vital Signs Blood Pressure: 155/102 Heart Rate: 100 Respiratory Rate: 20 O2 Sat (%): 90 Height: 165.1 cm Weight: 150.7 kg ANE Physical Exam - Airway Neck exam: FROM Mallampati Score: Class 2 Mouth exam: dentures - Pulmonary Pulmonary: clear to auscultation - Cardiovascular Cardiovascular: regular rate and rhythym - ASA Status ASA Status: III ANE Anesthesia Plan Anesthesia Plan: GA with mask
--- NOTE | 2018-04-24 12:44 | GIREPORT ---
[facility] Surgical Services - Endoscopy Department Patient Name: Domencia Swallow Procedure Date: 04/24/2018 10:29 AM Patient Type: Inpatient Attending MD/ ER Physician: Bonnie Martell MD Procedure: Upper GI endoscopy Indications: Abdominal pain in the right upper quadrant, Functional Dyspepsia, Nause a with vomiting Providers: Bonnie Martell MD Medicines: See the Anesthesia note for documentation of the administered medicatio ns Complications: No immediate complications. Description of Procedure: After obtaining informed consent, the endoscope was passed under direct vision. Throughout the procedure, the patient's blood pressure, pulse, and oxygen saturations were monitored continuously. The Endoscope was intro duced through the mouth, and advanced to the fourth part of duodenum. The [facility] er GI endoscopy was accomplished without difficulty. The patient tolerated th e procedure well. Findings: The examined esophagus was normal. Diffuse mild inflammation characterized by congestion (edema) and eryth kayla was found in the entire examined stomach. Biopsies were taken with a co ld forceps for histology. The examined duodenum was normal. Biopsies for histology were taken wit h a cold forceps for evaluation of celiac disease. Estimated Blood Loss: Estimated blood loss: none. Post Op Diagnosis: - Normal esophagus. - Gastritis. Biopsied. - Normal examined duodenum. Biopsied. Recommendation: - Written discharge instructions were provided to the patient. - The signs and symptoms of potential delayed complications were discus sed with the patient. - Patient has a contact number available for emergencies. - Return to normal activities tomorrow. - Resume previous diet. - Continue present medications. - Await pathology results. - No explanation for symptoms noted. Attending Participation: I personally performed the entire procedure. Bonnie Martell MD Bonnie Martell MD 04/24/2018 12:43:51 PM This report has been signed electronicallyBonnie Martell MD Number of Addenda: 0 Note Initiated On: 04/24/2018 10:29 AM [email or web address]
--- NOTE | 2018-04-24 12:44 | POSTANESTH ---
Post Anesthetic Evaluation Cardiovascular Status: Normal, Stable Respiratory Status: Normal, Stable Level of Consciousness/Mental Status: Can Participate in Eval, Alert and Oriented Pain Control: Adequate, Prn Tx Ordered Nausea/Vomiting Control: Adequate, Prn Tx Ordered Complications Possibly Related to Anesthesia: None Noted
--- NOTE | 2018-04-24 12:47 | SUROPNOTE ---
[facility] Operative Report - Surgery BRIEF EGD NOTE MEDS: per anesthesia INDICATION: n/v COMPLICATIONS: none acutely FINDINGS: 1. nl esopahgus 2. mild gastritis - bx'd 3. nl duodenum - bx'd IMPRESSION/RECS: 1. N/V - no etiology of symptoms noted - findings consistent with patient's report of prior EGD - doubt GI source of symptoms - consider biliary tract w/u (although this may be unlikely as well) - suspect functional, psych, polypharmacy, comorbidities, all contribute - can f/u with [facility] GI MDs as previously scheduled. - h.pylori and celiac testing ordered - recommend dc of THC (to r/o potential cannabinoid induced symptoms) - as outpt, through [facility] GI MDs, could consider additional w/u or treatment
--- NOTE | 2018-04-24 12:58 | GCON ---
INPATIENT CONSULTATION NOTE REFERRING PHYSICIAN: Dr. Guajardo CHIEF COMPLAINT: Nausea and vomiting. HISTORY OF PRESENT ILLNESS: The patient is a 42-year-old morbidly obese female with a complicated [facility] medical history who presents for admission to the hospital at the request of her primary care doct or, Dr. Cunningham. The patient has a history of chronic right upper quadrant pain associated with nause a and vomiting. She has been followed at the [facility]. She reports th at over the last many weeks, her nausea and vomiting symptoms have been gradually worsening. She has had gradually worsening right upper quadrant pain symptoms as well. She describes nearly constant n ausea, with difficulty with food, medicine, and liquids. She reports retching. She denies any diarr hea. She reports no bloody stool. She recently had some outpatient workup, including a CT scan of the abdomen and pelvis with contrast, which was largely nondiagnostic. According to the patient, she believes the problem has been her gallbladder, but gallbladder surgery was not recommended given her morbid obesity and other medical comorbidities. Of note, during our exam, she is frequently tearful and somewhat histrionic. Despite her ongoing abdominal symptoms and difficulty with foods, she has not had any weight loss. S he reports no fever, chills, sweats. She denies jaundice. 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 ALLERGIES: Thiothixene, adhesive tape, dabigatran, haloperidol and olanzapine. MEDICATIONS: Home medicines were herbals, promethazine, Reglan, Synthroid, tramadol, Symbicort, Xifa gumaro, Zestril, Robaxin, Bentyl, Vistaril, Neurontin, Voltaren, Glucophage, eye drops, Flomax, potassiu m, Lovaza, Femara, Ativan, [place], Neurontin, Lasix, and Proventil. SOCIAL HISTORY: She is a former smoker. She denies alcohol. She admits to cannabis use with edible s daily. She rarely smokes it. FAMILY HISTORY: Includes breast cancer, but no history of stomach or colon cancer. REVIEW OF SYSTEMS: A complete review was undertaken with the patient and is negative, except for the details described in the History of Present Illness. PHYSICAL EXAM: GENERAL: This is an obese female in moderate distress. HEENT: Pupils are equal, ro und, reactive to light and accommodation. Her sclerae are nonicteric. Oropharynx is clear. NECK: Supple, but with a midline trachea. CARDIOVASCULAR: Exam reveals distant heart sounds, without murm urs. Regular rhythm. RESPIRATORY: Unlabored breathing. Lungs are clear to auscultation. ABDOMEN: Soft, nondistended, with normoactive bowel sounds. There is minimal tenderness in the right upper quadrant with deep palpation. NEURO: Grossly nonfocal. PSYCH: Exam reveals an anxious and tearful woman. SKIN: No rash or jaundice. JOINTS: No arthritis. LABORATORY TESTING: White count of 5.4, hemoglobin of 13.2, hematocrit of 39.8, platelet count of 16 4, AST of 72, ALT of 80, alkaline phosphatase of 136, lipase of 119, TSH of 2.4, magnesium of 1.9. R ight upper quadrant ultrasound shows a limited exam due to body habitus. There is fatty infiltration of liver, as well as sludge in the gallbladder, without evidence of cholecystitis. IMPRESSION/RECOMMENDATIONS: Nausea and vomiting. The etiology of the patient's nausea and vomiting may be multifactorial. She has a significant number of comorbidities that have medical treatments as sociated with nausea. She has been a longstanding user of cannabis, and so could have some cannabis hyperemesis as well. She does have sludge in her gallbladder, and so biliary dyskinesia is also poss ible. At this point, she has had a relatively extensive, per her report, workup with the GI clinic a t the [facility] without etiology. Repeating the upper endoscopy is certainly reasonable given the gradual worsening of symptoms over e last several weeks, although the patient did have an endoscopy approximately 4-6 months ago that e reports was only indicative of some mild inflammation. Her urine was noted to be dirty, and she wa s started on antibiotics. UTI can certainly lead to worsening nausea. Pending the results of endosc opy, could consider additional workup. Certainly agree with additional right upper quadrant abdomina l pain workup with biliary imaging. Right upper quadrant ultrasound was somewhat nondiagnostic. Cou ld consider HIDA scan. /[id number]/MODL
[2018-04-24] MEDS: LORazepam 2 MG/ML INJ IVP PRN ×2 (14:24→22:40)
[2018-04-24] MEDS: ONDANSETRON DISINTEGRATING 4 MG TAB PO PRN (15:37)
[2018-04-24] MEDS: ERTAPENEM 1 GM in NS 100 ML IV SCH (15:38)
--- NOTE | 2018-04-24 15:43 | PDCONSULT ---
Timing Adjuster Note: Surgery consult requested by Dr. Heredia patients chart reviewed including [facility] visits to 2009 Assessment & Plan Assessment: elevated liver enzymes/alk phos/hx SMITH with cirrhosis, followed at [facility] Hepatology clinic chronic abdominal pain since hysterectomy in 2015/gallbladder ultrasound showing biliary sludge-HIDA scan scheduled for AM although chronic cholecystitis cannot be excluded, her symptoms and exam findings do not support this as the only cause of her pain Factor V Leiden deficiency with hx mulitple pulmonary emboli morbid obesity with BMI 55 daily THC use documented as far back as 2009 Hx schizoaffective disorder/PTSD Hx uterine/ovarian cancer s/p TYE-BSO mild gastritis/duodenitis on EGD by Dr. Martell earlier today Plan: Patient was recently evaluated at [facility] for possible bariatric surgery and was declined for unclear reasons. Her most significant health problem is her obesity contributing to her SMITH/ cirrhosis and she would certainly benefit from bariatric surgery at which time cholecystectomy should be performed. I would only recommend emergent cholecystectomy if she had acute gangrenous cholecystitis. Even acute cholecystitis with bacterial infection could be managed medically with IV antibiotics. She is at high risk for post operative complications and would like to avoid surgery if it will not relieve her symptoms History of Present Illness - General Stated Complaint: abdominal pain, nausea Source: Patient, Old records Exam Limitations: No limitations HPI: Timing/Duration: Other (symptoms started after hysterectomy 2015) Quality: severe, aching, cramping, fullness, stabbing, throbbing Abdominal Pain Location: RUQ, LLQ, generalized abdomen Pain Radiation: epigastric Activities at Onset: other (bending over causes pain) Associated Symptoms: fatigue, heartburn, nausea/vomiting, weakness Additional Information: recent similar symptoms, recently seen (patient recently discharged from [facility] following GI/surgical evaluation), treated by doctor (followed in Hepatology), hospitalized ([facility]ly [facility]) Initial Vital Signs: Initial Vital Signs Temperature (C) 36.8 C 04/23/18 15:57 Heart Rate 82 04/23/18 15:57 Respiratory Rate 20 04/23/18 15:57 Blood Pressure 146/81 H 04/23/18 15:57 O2 Sat (%) 91 L 04/23/18 15:57 O2 Delivery Mode Room Air O2 (L/minute) 3 Allergies/Adverse Reactions: thiothixene [Thiothixene] Allergy (Unknown, Verified 01/14/16 12:29) Unknown adhesive tape Allergy (Verified 09/09/17 13:30) dabigatran etexilate mesylate [From Pradaxa] Allergy (Verified 09/09/17 13:31) Other-Enter Comments haloperidol [From Haldol] Allergy (Verified 01/14/16 12:29) haloperidol lactate [From Haldol] Allergy (Verified 01/14/16 12:29) olanzapine [From Zyprexa] Allergy (Verified 09/09/17 13:31) Other-Enter Comments Home Medications: Medication Instructions Recorded metFORMIN HCL [Glucophage 500 mg 1,000 mg PO BIDMEAL #120 tab 01/09/16 (*)] Albuterol [Proventil Inhaler HFA 1 - 2 puffs IH Q4H PRN 05/18/16 (*)] Gabapentin [Neurontin 300 MG (*)] 300 mg PO DAILY 05/18/16 Letrozole [Femara 2.5 mg (*)] 2.5 mg PO DAILY 05/18/16 Tamsulosin HCl [Flomax 0.4 MG (*)] 0.4 mg PO HS 05/18/16 Travoprost Z 0.004% [Travatan Z 1 drops EACHEYE HS 05/18/16 0.004% (*)] Albuterol [Proventil Neb] 3 ml IH QID PRN 09/09/17 Diclofenac Sodium [Voltaren 50 MG 50 mg PO BID 09/09/17 (*)] Furosemide [Lasix 20 MG (*)] 20 mg PO BID 09/09/17 Gabapentin [Neurontin 300 MG (*)] 1,200 mg PO HS 09/09/17 HYDROcodone/APAP 10/325 [[place] 1 tab PO Q6 PRN 09/09/17 10/325 (*)] Hydroxyzine Pamoate [Vistaril] 50 mg PO BID 09/09/17 LORazepam [Ativan (*)] 1 mg PO BID PRN 09/09/17 Methocarbamol [Robaxin 500 mg (*)] 1,000 mg PO HS 09/09/17 Methocarbamol [Robaxin 500 mg (*)] 250 mg PO DAILY 09/09/17 Lake-3 Ethyl Est-Lovaza [Lovaza 1 2 gm PO BID 09/09/17 gm (*)] Potassium Cl [Klor-Con 20 meq (*)] 20 meq PO DAILY 09/09/17 Budesonide/Formoterol 160/4.5 2 puffs IH BID 04/23/18 [Symbicort 160-4.5 Mcg Inh (*)] Diclofenac Sodium 1% [Voltaren Gel 1 gm TP BID PRN 04/23/18 (*)] Dicyclomine [Bentyl 20 MG (*)] 20 mg PO DAILY 04/23/18 Herbals/Supplements -Info Only 1 ea PO DAILY 04/23/18 Levothyroxine [Synthroid 50 mcg 50 mcg PO DAILY06 04/23/18 (*)] Lisinopril [Zestril 20 mg (*)] 20 mg PO DAILY 04/23/18 Metoclopramide [Reglan 10 mg tab 10 mg PO Q6H PRN 04/23/18 (*)] Ondansetron Odt [Zofran Odt 4 mg 4 mg PO Q8H PRN 04/23/18 (*)] Promethazine HCl [Phenergan 25mg 25 mg PO Q6H PRN 04/23/18 (*)] Rifaximin [Xifaxan] 550 mg PO BID 04/23/18 traMADol HCL [Tramadol HCl ER] 100 mg PO DAILY 04/23/18 Past Medical History PMH: - Personal History LMP (Females 10-55): Hysterectomy ([facility] 2015 "uterine and ovarian" cancer) - Medical/Surgical History Hx Asthma: No Hx Chronic Respiratory Disease: Yes Hx Cardiac Disease: Yes Hx Diabetes: Yes Hx Renal Disease: Yes Hx Alcoholism: No Hx Cirrhosis: Yes Hx HIV/AIDS: No Hx Splenectomy or Spleen Trauma: No Other PMH: MEDICAL SI FACTOR V LEIDEN DEFICIENCY, PE X 4, depression, ptsd, pulmonary htn, diabetes; kidney stones, bladder incontinence,recent UTI. SURGERY BACK SURGERY, TONSILLECTOMY, carpal tunnel, ovarian cyst, frequent overdoses, uterine CA, ovarian CA, asthma, kidney disease - Social History Smoking Status: Current some day smoker Drug Use: Marijuana (consumes edibles daily and smokes several times per week) - Physical Exam Constitutional: obese, other (tearful/anxious) Eyes: anicteric sclera Ears, Nose, Mouth, Throat: moist mucous membranes Cardiovascular: regular rate and rhythym Respiratory: no rales or rhonchi Gastrointestinal: normoactive bowel sounds, tenderness (diffuse tenderness with voluntary guarding) Skin: warm, normal color Neurologic: AAOx3 Psychiatric: anxious Lymph, Heme, Immunologic: no cervical LAD, no supraclavicular LAD
[2018-04-24] MEDS: TAMSULOSIN HCL 0.4 MG CAP PO SCH ×2 (20:06)
[2018-04-24] MEDS: TRAVOPROST Z 0.004% 2.5 ML OPHT.BTL EACHEYE SCH (20:07)
[2018-04-24] MEDS: HYDROCODONE/APAP 5/325 TAB PO PRN (21:14)
[2018-04-25] MEDS: TRAVOPROST Z 0.004% 2.5 ML OPHT.BTL EACHEYE SCH ×2 (00:03→23:28)
[2018-04-25] MEDS: LEVOTHYROXINE 50 MCG TAB PO SCH (04:49)
[2018-04-25] MEDS: LORazepam 1 MG TAB PO PRN ×3 (05:04→23:35)
[2018-04-25 05:49] LABS: PLATELET COUNT 169 10^3/uL (150-400)
[2018-04-25 05:54] LABS: INR 1.13 (0.83-1.16); PROTIME(PATIENT) 14.7 SEC (12.0-15.0)
[2018-04-25] MEDS ORDERED: KETOROLAC 30 MG/1 ML SDV IVP ONE (07:33)
[2018-04-25] MEDS: GABAPENTIN 300 MG CAP PO SCH ×2 (07:34→21:51)
[2018-04-25] MEDS: LETROZOLE 2.5 MG TAB PO SCH (07:34)
[2018-04-25] MEDS: hydrOXYzine HCL 50 MG TAB PO SCH ×3 (07:34→21:51)
[2018-04-25] MEDS: ONDANSETRON DISINTEGRATING 4 MG TAB PO PRN (07:34)
[2018-04-25] MEDS: OMEGA-3 ETHYL EST-LOVAZA 1 GM CAP PO SCH ×2 (07:34→21:51)
[2018-04-25] MEDS: FUROSEMIDE 20 MG TAB PO SCH ×2 (07:35→21:51)
[2018-04-25] MEDS: LISINOPRIL 20 MG TAB PO SCH (07:35)
[2018-04-25] MEDS: DICYCLOMINE 20 MG TAB PO SCH (07:36)
[2018-04-25] MEDS: ERTAPENEM 1 GM in NS 100 ML IV SCH (07:38)
[2018-04-25] MEDS: INSULIN LISPRO 100 UNIT/ML SC SCH ×3 (08:01→18:10)
[2018-04-25] MEDS: METHOCARBAMOL 500 MG TAB PO SCH ×2 (08:04→21:51)
[2018-04-25] MEDS: RIFAXIMIN 550 MG TAB PO SCH ×2 (08:04→21:51)
[2018-04-25] MEDS: PROMETHAZINE HCL 25 MG/ML INJ IVP PRN (08:23)
[2018-04-25] MEDS: LORazepam 2 MG/ML INJ IVP PRN ×2 (09:29→20:01)
[2018-04-25] MEDS: BUDESONIDE/FORMOTEROL 160/4.5 60 PUFFS/MDI IH SCH ×2 (09:55→17:54)
--- NOTE | 2018-04-25 11:23 | PDMN ---
Medical Necessity Medical necessity: [facility] Gastroenterology: 42 yo w/ multi medical issues described below directly admitted by PCP for ongoing abd pain and intractable n/ v. Initially OBS for workup but change to IP status for surgical and GI consults and medical complexities/comorbidities. Pt underwent EGD. HIDA scan pending. Pt is very high risk for post op complications and would like to avoid surgery. Pt cont on IVF and is being treated w/ IV antibx for UTI which may be contributing to s/sx. Pt cont w/ freq IV antiemetics needs. Pt will require >2MN for ongoing diagnostic testing, monitoring and tx. Sig medical hx : morbid obesity, DM2, CAD, HTN, chronic abd pain, unspecified AI d/o (possibly MCTD), cholelithiasis/gall bladder disease, ventral abd hernia, multivalvular disease, mumur, asthma, OHS, O2 dependent, GERONIMO/CPAP, pHTN, PE, thrombophilia, factor V leiden, endometrial/ovarian ca s/p resect on po chemo, urinary incontinence 2nd surg/radiation, schizoaffective d/o w/ anxiety/depression, PTSD , glaucoma, cirrhosis - SMITH vs. AI hepatitis. Change to IP status 04/24/18@ 1226 per MD order
[2018-04-25] MEDS: HYDROCODONE/APAP 5/325 TAB PO PRN ×2 (11:56→17:39)
--- NOTE | 2018-04-25 12:54 | SOAPPROG ---
SOAP Progress Note Assessment/Plan: Assessment: 1. N/V - was able to tolerate dinner and breakfast with pre-med of zofran - EGD essentially normal - likely functional, polypharmacy, anxiety, etc. Doubt primary treatable GI illness - recommend continued symptomatic care - await HIDA result - can continue to f/u with [facility] GI MDs where she is established - patient may want to discuss med list with PMD/Psych/GI/Etc and see if it can be trimmed down? - if compatible with multiple other meds, could consider low dose TCA qHS ( nortriptyline 10mg qhs, for example) - although hate to add more meds to her list and do have some concern about adding additional psych meds - related to UTI? on abx currently - doubt THC hyperemesis as patient specifically reports getting worsened N/V in the shower/bath and episodes where she has to leave the hot bath to vomit - can continue THC, for now, if she is finding it helpful 2. Abd Pain - again, likely functional, etc - doubt biliary tract disease - US and CT and EGD without etiology - HIDA pending - suspect anxiety, polypharmacy, functional - continue symptomatic care - could consider more esoteric lab testing (angioedema, porphyria, heavy metal toxicity, etc) but this is of very low yield and can defer this to patient's outpt GI MDs at [facility] to consider 3. Diarrhea - given morbid obesity, doubt pancreatic insufficiency - suspect functional, polypharmacy, IBS - stool testing is pending - continue antidiarrheals, consider scheduled Imodium 2mg qAC/HS - patient reports recent colonoscopy at [facility] to investigate, where no cause was found - maybe some benefit to avoiding lactose, artificial sweeteners, and other high FODMAP foods - will sign off, call with questions. 04/25/18 12:45 Subjective: CC: n/v/pain S: still has protean abdominal complaints feels like battery acid washing through her with meals has hot sweats and weakness with eating has RUQ pain with meals has greasy fatty oil, foul smelling BMs after meals has persistent "extreme" nausea also reports pain with moving around in bed no fever no dysuria yet despite the above reports having dinner and breakfast meals with pre-meds of zofran without difficulty? no blood stool Objective: Vital Signs Temp Pulse Resp BP Pulse Ox 37.4 C 72 16 118/84 H 96 04/25/18 07:40 04/25/18 07:40 04/25/18 07:40 04/25/18 07:40 04/25/18 07:40 Laboratory Results 04/25/18 04:15 04/25/18 04:15 04/24/18 04/25/18 04/26/18 05:59 05:59 05:59 Intake Total 1800 1556 Output Total 300 Balance 1500 1556 PT 14.7 SEC (12.0-15.0) 04/25/18 04:15 INR 1.13 (0.83-1.16) 04/25/18 04:15 Physical Exam - Physical Exam General Appearance: alert, obese EENT: PERRL/EOMI Respiratory: lungs clear Cardiac/Chest: regular rate, rhythm Abdomen: normal bowel sounds, non-tender, soft, No distended, No guarding, No rebound Skin: normal color Extremities: normal range of motion Neuro/Psych: no motor/sensory deficits ICD10 Worksheet Patient Problems: Problems Problem Status Onset Acute psychosis Acute Intentional benzodiazepine overdose Acute Overdose of coumadin Acute Personality disorder Acute Respiratory distress Acute Schizo-affective psychosis Acute Suicidal ideation Acute
--- NOTE | 2018-04-25 14:22 | HOSPPROG ---
Hospitalist Progress Note Assessment/Plan: RUQ abd pain, chronic - with intractable nausea/vomiting * says has had gallbladder problems for many years with previous stones, sludge * symptoms seem to localize to gallbladder and alk phos is up a little * HIDA scan shows ?chronic cholecystitis * she is high operative risk for several reasons - cirrhosis (although seesm mild), previous problems with anesthesia, factor v leiden, obesity but unable to eat now. * start invanz mostly for UTI but can see if that helps abd pain * other possibility is pancreatic insufficiency -admits to steatorrhea * will check pancreatic elastase and spot stool fat * will try creon empirically * probably dc tomorrow after discussion with Dr Cunningham Ventral hernia w/ abd pain, chronic -moderately symptomatic, but doubt that bowel is strangulated/ischemic based on labs/presentation. -Surgery not indicated at this time. -Recommend to follow up with Gen Surg. Morbid Obesity Hx anesthesia adverse reactions -Also very high surgical risk of CV/resp adverse events Other Chronic issues: IBS - with intermittent nausea/diarrhea/abd pain Liver Cirrhosis- 2/2 SMITH vs AI hepatitis and Splenomegaly DM 2 -on metformin normally. -SSI in hospital. Factor V leiden/h/o PE - start lovenox 40 bid. may need 60 bid Hypothyroid HTN CAD Multivalvular disease Asthma OHS Oxygen dependent - occasionally at home 2-3L GERONIMO, on CPAP Pulmonary HTN Endometrial/ovarian cancer - s/p resection, on po chemo Nephrolithiasis Schizoaffective disorder with anxiety/depression PTSD Glaucoma Subjective: pt very upset that we can't fix her problem. wants an immedite referral to eating disorder clinic. was able to eat full meals Objective: Vital Signs Temp Pulse Resp BP Pulse Ox 37.4 C 72 16 118/84 H 96 04/25/18 07:40 04/25/18 07:40 04/25/18 07:40 04/25/18 07:40 04/25/18 07:40 Laboratory Results 04/25/18 04:15 04/25/18 04:15 04/24/18 04/25/18 04/26/18 05:59 05:59 05:59 Intake Total 1800 1556 Output Total 300 Balance 1500 1556 PT 14.7 SEC (12.0-15.0) 04/25/18 04:15 INR 1.13 (0.83-1.16) 04/25/18 04:15 - Physical Exam Constitutional: no apparent distress, obese Respiratory: no respiratory distress Neurologic: AAOx3 ICD10 Worksheet Patient Problems: Problems Problem Status Onset Acute psychosis Acute Intentional benzodiazepine overdose Acute Overdose of coumadin Acute Personality disorder Acute Respiratory distress Acute Schizo-affective psychosis Acute Suicidal ideation Acute
[2018-04-25] MEDS ORDERED: LORazepam 2 MG/ML INJ IVP ONE (14:46)
[2018-04-25] MEDS: LIPASE 24,000/AMYLASE/PROTEASE (CREON) 1 CAP PO SCH (17:40)
[2018-04-25] MEDS: TAMSULOSIN HCL 0.4 MG CAP PO SCH (21:51)
[2018-04-26] MEDS: QUEtiapine FUMARATE 50 MG TAB PO ONE ×2 (01:04→01:25)
[2018-04-26] MEDS: ONDANSETRON DISINTEGRATING 4 MG TAB PO PRN (10:49)
[2018-04-26] MEDS: METOCLOPRAMIDE 10 MG/2 ML VIAL IVP PRN (11:06)
[2018-04-26] MEDS: METHOCARBAMOL 500 MG TAB PO SCH (11:10)
[2018-04-26] MEDS: LORazepam 1 MG TAB PO PRN ×3 (11:10→23:30)
[2018-04-26] MEDS: OMEGA-3 ETHYL EST-LOVAZA 1 GM CAP PO SCH ×2 (11:11→20:54)
[2018-04-26] MEDS: LISINOPRIL 20 MG TAB PO SCH (11:11)
[2018-04-26] MEDS: DICYCLOMINE 20 MG TAB PO SCH (11:11)
[2018-04-26] MEDS: FUROSEMIDE 20 MG TAB PO SCH ×2 (11:11→20:55)
[2018-04-26] MEDS: RIFAXIMIN 550 MG TAB PO SCH ×2 (11:11→20:55)
[2018-04-26] MEDS: hydrOXYzine HCL 50 MG TAB PO SCH ×3 (11:12→20:55)
[2018-04-26] MEDS: GABAPENTIN 300 MG CAP PO SCH ×2 (11:12→20:56)
[2018-04-26] MEDS: LIPASE 24,000/AMYLASE/PROTEASE (CREON) 1 CAP PO SCH ×3 (11:12→18:42)
[2018-04-26] MEDS: BUDESONIDE/FORMOTEROL 160/4.5 60 PUFFS/MDI IH SCH ×2 (11:13→21:57)
[2018-04-26] MEDS: LETROZOLE 2.5 MG TAB PO SCH (11:13)
[2018-04-26] MEDS: ERTAPENEM 1 GM in NS 100 ML IV SCH (11:13)
--- NOTE | 2018-04-26 11:34 | HOSPPROG ---
Hospitalist Progress Note Assessment/Plan: Domenica is a 42 y/o female who was admitted for chronic ruq pain x 2 years. Today is my first encounter, chart reviewed. She became upset and tearful today when discussing discharge w f/u. Psychiatry to see, appreciate Dr Aldana. RUQ abd pain, chronic - with intractable nausea/vomiting -steatorrhea-on Creon -says she is vomiting, but the tech has been in her room multiple times and none was noted -HIDA scan shows ?chronic cholecystitis -she is high operative risk for several reasons - cirrhosis (although seems mild ), previous problems with anesthesia, factor v leiden, obesity -start Invanz mostly for UTI but can see if that helps abd pain -will check pancreatic elastase *Ventral hernia w/ abd pain, chronic -evaluated by surgery, no surgery recommended *mental health issues -borderline personality disorder, schizoaffective disorder, anxiety, PTSD -Dr Aldana to see-she may need to go to to help stabilize her -I'm concerned the mental health issues are causing the above *Morbid Obesity -she is insisting I get her into an eating disorder inpatient placement - giving her resources -hx of anesthesia w adverse reactions, gastric bypass not a good option at this time Other Chronic issues: IBS - with intermittent nausea/diarrhea/abd pain Liver Cirrhosis- 2/2 SMITH vs AI hepatitis and Splenomegaly DM 2 -on metformin normally. -SSI in hospital. Factor V leiden/h/o PE - start lovenox 40 bid. HTN CAD Multivalvular disease Asthma OHS Oxygen dependent - occasionally at home 2-3L GERONIMO, on CPAP Pulmonary HTN *plan; psychiatry to see hopefully today, she is adamant about not being discharge till I fix the above, explained to her that it is one step at a time. Dr Octavio Laguerre her PCP is aware of the above. Subjective: Domenica says she is vomiting and can't eat. Says she can not be discharged until this is addressed. Objective: Vital Signs Temp Pulse Resp BP Pulse Ox 36.7 C 80 20 117/66 98 04/26/18 08:00 04/26/18 08:00 04/26/18 08:00 04/26/18 11:11 04/26/18 08:00 Laboratory Results 04/25/18 04:15 04/25/18 04:15 04/25/18 04/26/18 04/27/18 05:59 05:59 05:59 Intake Total 1561 243 9741 Balance 6309 501 3664 PT 14.7 SEC (12.0-15.0) 04/25/18 04:15 INR 1.13 (0.83-1.16) 04/25/18 04:15 - Physical Exam Constitutional: obese, uncomfortable Eyes: PERRL Ears, Nose, Mouth, Throat: hearing normal Respiratory: no respiratory distress Skin: warm Musculoskeletal: full muscle strength Neurologic: AAOx3 Psychiatric: agitated, other (tearful, upset, says she will not leave until her abdominal pain and vomiting are addressed) ICD10 Worksheet Patient Problems: Problems Problem Status Onset Acute psychosis Acute Intentional benzodiazepine overdose Acute Overdose of coumadin Acute Personality disorder Acute Respiratory distress Acute Schizo-affective psychosis Acute Suicidal ideation Acute
[2018-04-26] MEDS: HYDROCODONE/APAP 5/325 TAB PO PRN ×2 (11:40→22:12)
--- NOTE | 2018-04-26 12:27 | ASMTCMCOM ---
CM Note CM Note Notes: CM spoke to Tatiana Dash NP regarding d/c POC. Pt is complaining of a UTI. Surgery and GI has signed off on pt. Pt is requesting to be transferred to an inpatient eating disorder program. CM called [facility] (P# [phone]) and [facility] disorder at [facility] (P#: [phone]) and they both stated that pt would need to complete an on the phone assessment first. CM met w/ pt and provided her w/ phone those phone numbers. Pt reports that she will call. Tatiana will order a psych consult. CM to follow. Plan: TBD Date Signed: 04/26/2018 12:26 PM Electronically Signed By:TRUMAN Morris
[2018-04-26] MEDS: LEVOTHYROXINE 50 MCG TAB PO SCH (14:51)
[2018-04-26] MEDS: INSULIN LISPRO 100 UNIT/ML SC SCH ×2 (14:52→18:23)
[2018-04-26] MEDS: OXYCODONE/APAP 5/325 TAB PO PRN (18:04)
[2018-04-26] MEDS: ENOXAPARIN 60 MG/0.6 ML SYR SC SCH (20:54)
[2018-04-26] MEDS: PSYLLIUM METAMUCIL 1 PKT PO SCH (22:13)
[2018-04-26] MEDS ORDERED: TAMSULOSIN HCL 0.4 MG CAP PO ONE (22:30)
[2018-04-26] MEDS ORDERED: METHOCARBAMOL 500 MG TAB PO ONE (22:30)
[2018-04-26] MEDS ORDERED: QUEtiapine FUMARATE 50 MG TAB PO ONE (22:30)
[2018-04-26] MEDS ORDERED: PANTOPRAZOLE SODIUM 40 MG TAB PO ONE (22:30)
[2018-04-27] MEDS ORDERED: LIPASE 24,000/AMYLASE/PROTEASE (CREON) 1 CAP PO SCH
[2018-04-27] MEDS: OXYCODONE/APAP 5/325 TAB PO PRN (03:10)
[2018-04-27] MEDS: LEVOTHYROXINE 50 MCG TAB PO SCH (05:28)
[2018-04-27] MEDS: LORazepam 1 MG TAB PO PRN (05:29)
[2018-04-27] MEDS: LIPASE 24,000/AMYLASE/PROTEASE (CREON) 1 CAP PO SCH (07:19)
[2018-04-27] MEDS: ENOXAPARIN 60 MG/0.6 ML SYR SC SCH (07:29)
[2018-04-27] MEDS: LETROZOLE 2.5 MG TAB PO SCH (07:29)
[2018-04-27] MEDS: METHOCARBAMOL 500 MG TAB PO SCH (07:30)
[2018-04-27] MEDS: PSYLLIUM METAMUCIL 1 PKT PO SCH (07:31)
[2018-04-27] MEDS: ERTAPENEM 1 GM in NS 100 ML IV SCH (07:31)
[2018-04-27] MEDS: GABAPENTIN 300 MG CAP PO SCH (07:32)
[2018-04-27] MEDS: RIFAXIMIN 550 MG TAB PO SCH (07:32)
[2018-04-27] MEDS: OMEGA-3 ETHYL EST-LOVAZA 1 GM CAP PO SCH (07:32)
[2018-04-27] MEDS: LISINOPRIL 20 MG TAB PO SCH (07:32)
[2018-04-27] MEDS: hydrOXYzine HCL 50 MG TAB PO SCH (07:32)
[2018-04-27] MEDS: DICYCLOMINE 20 MG TAB PO SCH (07:33)
[2018-04-27] MEDS: FUROSEMIDE 20 MG TAB PO SCH (07:33)
[2018-04-27] MEDS: INSULIN LISPRO 100 UNIT/ML SC SCH (07:39)
[2018-04-27 08:05] VITALS: BP 114/61
[2018-04-27] MEDS: BUDESONIDE/FORMOTEROL 160/4.5 60 PUFFS/MDI IH SCH (08:51)
--- NOTE | 2018-04-27 11:18 | ASMTDCNOTE ---
Case Management Discharge Discharge Order Complete? Answers: Yes Patient to Obtain Answers: Independently Medications Transportation Arranged Answers: Family/Friends EMTALA Complete Answers: No Case Management Transport Answers: No Form Complete Faxed Final Orders Answers: No Agency/Facility Transfer Answers: No Report Printed & Faxed to Receiving Agency Family Notified Answers: No Discharge Comments Notes: Pts case discussed w/ Dr. Edwards. Pt is being d/c'd today. PT has cleared her. Pt does not have any d/c needs. Pts friend will be picking her up. CM mapped her ирина, they are around 50 cent per pill. CM available for changes. Plan: Independent Date Signed: 04/27/2018 11:17 AM Electronically Signed By:TRUMAN Morris
--- NOTE | 2018-04-27 11:20 | ASMTLACE ---
WADEE Length of stay for Answers: 4-6 days current admission Acuity / Level of Answers: Yes Care: Did the patient have an inpatient admission? Comorbidities - select Answers: Diabetes (uncontrolled or all that apply controlled) Moderate or severe liver or renal disease Other Notes: Glaucoma, HTN..... # of Emergency department Answers: 1-2 visits in the last 6 months Social determinants Answers: History of trauma (PTSD, child abuse, domestic violence, etc.) Mental health diagnosis (anxiety, depression, pers onality disorders, etc.) Score: 20 Date Signed: 04/27/2018 11:19 AM Electronically Signed By:TRUMAN Morris
--- NOTE | 2018-04-27 16:34 | HOSPPROG ---
Hospitalist Progress Note Assessment/Plan: Domenica is a 42 y/o female who was admitted for chronic ruq pain x 2 years. Today is my first encounter, chart reviewed. today she says she is fine to discharge home. No complaints. RUQ abd pain, chronic - with intractable nausea/vomiting -steatorrhea-on Creon -says she is vomiting, but the tech has been in her room multiple times and none was noted -HIDA scan shows ?chronic cholecystitis -she is high operative risk for several reasons - cirrhosis (although seems mild ), previous problems with anesthesia, factor v leiden, obesity -start Invanz mostly for UTI but can see if that helps abd pain -will check pancreatic elastase *Ventral hernia w/ abd pain, chronic -evaluated by surgery, no surgery recommended *mental health issues -borderline personality disorder, schizoaffective disorder, anxiety, PTSD -Dr Aldana to see-she may need to go to to help stabilize her -I'm concerned the mental health issues are causing the above *Morbid Obesity -she is insisting I get her into an eating disorder inpatient placement - giving her resources -hx of anesthesia w adverse reactions, gastric bypass not a good option at this time Other Chronic issues: IBS - with intermittent nausea/diarrhea/abd pain Liver Cirrhosis- 2/2 SMITH vs AI hepatitis and Splenomegaly DM 2 -on metformin normally. -SSI in hospital. Factor V leiden/h/o PE - start lovenox 40 bid. HTN CAD Multivalvular disease Asthma OHS Oxygen dependent - occasionally at home 2-3L GERONIMO, on CPAP Pulmonary HTN psych was planning on seeing her but no consult ever placed. patient says she is feeling fine, and is ready for discharge. Subjective: patient with no complaints this morning. Fine to go home. ate well this morning. Objective: Vital Signs Temp Pulse Resp BP Pulse Ox 37.0 C 75 14 114/61 95 04/27/18 08:00 04/27/18 08:55 04/27/18 08:55 04/27/18 08:00 04/27/18 08:55 Microbiology 04/23/18 21:18 Urine Culture - Final Urine,Clean Catch Proteus Mirabilis Gram Neg Aydin Lactose [employer] Enterococcus Faecalis Laboratory Results 04/25/18 04:15 04/25/18 04:15 04/26/18 04/27/18 04/28/18 05:59 05:59 05:59 Intake Total 200 1450 Balance 200 1450 PT 14.7 SEC (12.0-15.0) 04/25/18 04:15 INR 1.13 (0.83-1.16) 04/25/18 04:15 - Physical Exam Constitutional: no apparent distress, appears nourished, not in pain Eyes: PERRL, anicteric sclera, EOMI Ears, Nose, Mouth, Throat: moist mucous membranes, hearing normal, ears appear normal, no oral mucosal ulcers Cardiovascular: regular rate and rhythym, no murmur, rub, or gallop Respiratory: no respiratory distress, no rales or rhonchi, clear to auscultation Gastrointestinal: normoactive bowel sounds, soft, non-tender abdomen, no palpable masses Genitourinary: no bladder fullness, no bladder tenderness, no renal bruits Skin: no rashes or abrasions, no fluctuance, no induration Musculoskeletal: full muscle strength, no muscle tenderness, normal joint ROM Neurologic: AAOx3, sensation intact bilaterally Psychiatric: interacting appropriately, not anxious, not encephalopathic, thought process linear Lymph, Heme, Immunologic: no cervical LAD, no supraclavicular LAD ICD10 Worksheet Patient Problems: Problems Problem Status Onset Acute psychosis Acute Intentional benzodiazepine overdose Acute Overdose of coumadin Acute Personality disorder Acute Respiratory distress Acute Schizo-affective psychosis Acute Suicidal ideation Acute
--- NOTE | 2018-04-27 16:40 | PDDCSUM ---
Discharge Summary Discharge Summary: Domenica Holland is a 42 year old female with morbid obesity who presented with nausea and vomiting. She underwent extensive evaluation including a HIDA scan, egd, abdominal ultrasound, which showed possible chronic cholecystitis. she also was seen by surgery for a ventral hernia but surgery did not think that her symptoms could be attributed to her hernia and they did not recommend herniaraphy. They also did not recommend cholecystectomy given her undelrying morbid obesity. she continued to complain of nausea and vomiting and saying that she could not eat well, but nursing noted no episodes of any nausea and vomiting and patient was able to eat meals without issue. Lizzy was started on creon for possible malabsorption. On the day of discharge she was tolerating PO well, her labs all were WNL and I discussed the possibility of her going home. She felt that the etiology of her symptoms had never been determined but did say she was fine to go home. I told her she should follow up with her PCP for ongoing workup and she agreed with this plan. Discharge diagnosis- nausea and vomiting, SMITH, steatosis, diarrhea, bipolar Discharge disposition- home to follow up with PCP. Condition at discharge- good.
[2018-04-27] MEDS ORDERED: TAMSULOSIN HCL 0.4 MG CAP PO SCH (17:00)
[2018-04-27] MEDS ORDERED: TRAVOPROST Z 0.004% 2.5 ML OPHT.BTL EACHEYE SCH (17:00)
[2018-04-27] MEDS ORDERED: METHOCARBAMOL 500 MG TAB PO SCH (17:00)
== END 2018-04-27 11:35 | disposition home or self-care (01) | DRG 392 ==
LOC: F3E 15:23 → OBSVTOIN 04-24 17:04
PROVIDERS: ADMIT Internal Medicine; ATTEND Internal Medicine
PROC: 0DB98ZX Excision of Duodenum, Via Natural or Artificial Opening Endoscopic, Diagnostic (ICD-10-PCS; principal; 2018-04-24 12:00)
PROC: 0DB68ZX Excision of Stomach, Via Natural or Artificial Opening Endoscopic, Diagnostic (ICD-10-PCS; principal; 2018-04-24 12:00)
DX: R11.2 Nausea with vomiting, unspecified (principal); K81.1 Chronic cholecystitis; E66.01 Morbid (severe) obesity due to excess calories; K75.81 Nonalcoholic steatohepatitis (NASH); K43.9 Ventral hernia without obstruction or gangrene; E11.9 Type 2 diabetes mellitus without complications; E03.9 Hypothyroidism, unspecified; I10 Essential (primary) hypertension; I25.10 Atherosclerotic heart disease of native coronary artery without angina pectoris; E87.6 Hypokalemia; K58.9 Irritable bowel syndrome, unspecified; J45.909 Unspecified asthma, uncomplicated; I27.20 Pulmonary hypertension, unspecified; N20.0 Calculus of kidney; F25.1 Schizoaffective disorder, depressive type; H40.9 Unspecified glaucoma; F43.10 Post-traumatic stress disorder, unspecified; F12.90 Cannabis use, unspecified, uncomplicated; Z86.711 Personal history of pulmonary embolism; Z85.43 Personal history of malignant neoplasm of ovary; Z79.84 Long term (current) use of oral hypoglycemic drugs; Z99.81 Dependence on supplemental oxygen; Z87.891 Personal history of nicotine dependence; Z80.3 Family history of malignant neoplasm of breast
CPT/HCPCS: 80307; 82784-90; 83516-90; 97161-GP; 97166-GO; A9537; G0378; G0480; G8978-GP-CI; G8979-GP-CI; G8980-GP-CI; G8987-GO-CK; G8988-GO-CI; J1335; J1650; J1885; J2060; J2270; J2550; J2704; J2765; J7613

== ENCOUNTER 2018-08-10 15:46 | Inpatient (IN) | payer OTHER, MEDICAID ==
--- NOTE | 2018-08-10 15:52 | EDPHY ---
H & P Source: Patient - Personal History Tetanus Vaccine Date: within 10 years - Medical/Surgical History Hx Asthma: No Hx Chronic Respiratory Disease: Yes Hx Diabetes: Yes Hx Cardiac Disease: Yes Hx Renal Disease: Yes Hx Cirrhosis: Yes Hx Alcoholism: No Hx HIV/AIDS: No Hx Splenectomy or Spleen Trauma: No Other PMH: MEDICAL SI FACTOR V LEIDEN DEFICIENCY, PE X 4, depression, ptsd, pulmonary htn, diabetes; kidney stones, bladder incontinence,recent UTI. SURGERY BACK SURGERY, TONSILLECTOMY, carpal tunnel, ovarian cyst, frequent overdoses, uterine CA, ovarian CA, asthma, kidney disease - Social History Smoking Status: Current some day smoker Time Seen by Provider: 08/10/18 15:52 HPI/ROS: HPI CHIEF COMPLAINT: Psychosis, paranoia HISTORY OF PRESENT ILLNESS: 43-year-old female presents to the emergency room with being paranoid and acute psychosis. She appears gravely disable and psychotic. She appears to be hallucinating. I am unable to obtain any history from her as she starts crying and screaming, pointing at things. Past Medical History: Significant medical history for bipolar disorder, Cam[place], nausea vomiting, significant medical history for borderline personality disorder , schizoaffective disorder, factor 5 Leiden deficiency, hypertension, morbid obesity, PE Past Surgical History: No recent surgery Social History: Denies drugs alcohol tobacco. Family History: Noncontributory ROS REVIEW OF SYSTEMS: Limited due to patient's mental state. Exam Constitutional triage nursing summary reviewed, vital signs reviewed, awake/ alert. Eyes normal conjunctivae and sclera, EOMI, PERRLA. HENT normal inspection, atraumatic, moist mucus membranes, no epistaxis, neck supple/ no meningismus, no raccoon eyes. Respiratory clear to auscultation bilaterally, normal breath sounds, no respiratory distress, no wheezing. Cardiovascular rate normal, regular rhythm, no murmur, no edema, distal pulses normal. Gastrointestinal soft, non-tender, no rebound, no guarding, normal bowel sounds, no distension, no pulsatile mass. Genitourinary no CVA tenderness. Musculoskeletal no midline vertebral tenderness, full range of motion, no calf swelling, no tenderness of extremities, no meningismus, good pulses, neurovascularly intact. Skin pink, warm, & dry, no rash, skin atraumatic. Neurologic awake, alert and oriented x 3, AAOx3, moves all 4 extremities equally, motor intact, sensory intact, CN II-XII intact, normal cerebellar, normal vision, normal speech. Psychiatric npsychotic Heme/Lymph/Immune no lymphadenopathy. Differential Diagnosis: Fluids but is not limited to in a particular order mood disorder, bipolar disorder, acute psychosis, paranoia. Medical Decision Making: Plan for this patient IV establishment, Zyprexa 10 mg p.o., basic labs, drug screen, re-evaluate Re-evaluation: Patient been placed on M1 hold by myself at 4:15 p.m.. She is here delusional, psychotic, paranoid nonsensical. Signed over to Dr. Romeo 10pm Pending Mental Health Eval. (Jese Schaefer) Constitutional: Initial Vital Signs Temperature (C) 37.4 C 08/10/18 15:49 Heart Rate 112 H 08/10/18 15:49 Respiratory Rate 20 08/10/18 15:49 Blood Pressure 183/131 H 08/10/18 15:49 O2 Sat (%) 92 08/10/18 15:49 O2 Delivery Mode Room Air Allergies/Adverse Reactions: thiothixene [Thiothixene] Allergy (Unknown, Verified 01/14/16 12:29) Unknown adhesive tape Allergy (Verified 09/09/17 13:30) dabigatran etexilate mesylate [From Pradaxa] Allergy (Verified 09/09/17 13:31) Other-Enter Comments haloperidol [From Haldol] Allergy (Verified 01/14/16 12:29) haloperidol lactate [From Haldol] Allergy (Verified 01/14/16 12:29) olanzapine [From Zyprexa] Allergy (Verified 09/09/17 13:31) Other-Enter Comments Home Medications: Medication Instructions Recorded metFORMIN HCL [Glucophage 500 mg 1,000 mg PO BIDMEAL #120 tab 01/09/16 (*)] Albuterol [Proventil Inhaler HFA 1 - 2 puffs IH Q4H PRN 05/18/16 (*)] Gabapentin [Neurontin 300 MG (*)] 300 mg PO DAILY 05/18/16 Letrozole [Femara 2.5 mg (*)] 2.5 mg PO DAILY 05/18/16 Tamsulosin HCl [Flomax 0.4 MG (*)] 0.4 mg PO HS 05/18/16 Travoprost Z 0.004% [Travatan Z 1 drops EACHEYE HS 05/18/16 0.004% (*)] Albuterol [Proventil Neb] 3 ml IH QID PRN 09/09/17 Diclofenac Sodium [Voltaren 50 MG 50 mg PO BID 09/09/17 (*)] Furosemide [Lasix 20 MG (*)] 20 mg PO BID 09/09/17 Gabapentin [Neurontin 300 MG (*)] 1,200 mg PO HS 09/09/17 HYDROcodone/APAP [[place] 1 tab PO Q6 PRN 09/09/17 (*)] Hydroxyzine Pamoate [Vistaril] 50 mg PO BID 09/09/17 LORazepam [Ativan (*)] 1 mg PO BID PRN 09/09/17 Methocarbamol [Robaxin 500 mg (*)] 1,000 mg PO HS 09/09/17 Methocarbamol [Robaxin 500 mg (*)] 250 mg PO DAILY 09/09/17 [place]-3 Ethyl Est-Lovaza [Lovaza 1 2 gm PO BID 09/09/17 gm (*)] Potassium Cl [Klor-Con 20 meq (*)] 20 meq PO DAILY 09/09/17 Budesonide/Formoterol 160/4.5 2 puffs IH BID 04/23/18 [Symbicort 160-4.5 Mcg Inh (*)] Diclofenac Sodium 1% [Voltaren Gel 1 gm TP BID PRN 04/23/18 (*)] Dicyclomine [Bentyl 20 MG (*)] 20 mg PO DAILY 04/23/18 Herbals/Supplements -Info Only 1 ea PO DAILY 04/23/18 Levothyroxine [Synthroid 50 mcg 50 mcg PO DAILY06 04/23/18 (*)] Lisinopril [Zestril 20 mg (*)] 20 mg PO DAILY 04/23/18 Metoclopramide [Reglan 10 mg tab 10 mg PO Q6H PRN 04/23/18 (*)] Ondansetron Odt [Zofran Odt 4 mg 4 mg PO Q8H PRN 04/23/18 (*)] Promethazine HCl [Phenergan 25mg 25 mg PO Q6H PRN 04/23/18 (*)] Rifaximin [Xifaxan] 550 mg PO BID 04/23/18 traMADol HCL [Tramadol HCl ER] 100 mg PO DAILY 04/23/18 Lipase 24,000/Amylase/Protease 1 cap PO TIDMEAL 30 Days #90 cap 04/27/18 [Creon 24 (*)] Medical Decision Making Other Provider: [address] Schaefer pending mental health evaluation. 0700 patient signed out to Dr. Montgomery pending mental health evaluation. I have had no issues during my care this patient overnight. (Sunil Romeo) I assumed care of this patient at 7:00 a.m. From . Mental health evaluation pending. 7:35 a.m.. Patient wearing headphones, talking about space travel. It is unclear to me what, if any, Psychiatric medicines she is taking or should be taking. She received 2 doses of Ativan yesterday, with the last 1 around 9:00 p.m.. She received Seroquel 100 mg at 9:30 p.m.. Nurse's report indicates that she has responded well to Seroquel. Her chart it says that she is allergic to Zyprexa and Haldol. Will give her 2nd dose of Seroquel, 100 mg orally, this morning. 9:20 a.m.. Patient has been accepted at [facility]. (Radha Montgomery) - Data Points Laboratory Results: Laboratory Results 08/10/18 18:05 08/10/18 18:05 08/11/18 07:09 Urine Opiates Screen NON-NEGATIVE H (NEGATIVE) Urine Barbiturates NEGATIVE (NEGATIVE) Ur Phencyclidine Scrn NEGATIVE (NEGATIVE) Ur Amphetamine Screen NEGATIVE (NEGATIVE) U Benzodiazepines Scrn NEGATIVE (NEGATIVE) Urine Cocaine Screen NEGATIVE (NEGATIVE) U Marijuana (THC) Screen NON-NEGATIVE H (NEGATIVE) Medications Given: Discontinued Medications Lorazepam (Ativan) 1 mg PO EDNOW ONE Stop: 08/10/18 16:09 Last Admin: 08/10/18 16:21 Dose: Not Given Lorazepam (Ativan Injection) 2 mg IM Q4HRS PRN PRN Reason: Anxiety, Unable to Take PO Stop: 02/06/19 16:20 Last Admin: 08/10/18 16:24 Dose: 2 mg Lorazepam (Ativan Injection) 2 mg IVP EDNOW ONE Stop: 08/10/18 16:23 Last Admin: 08/10/18 17:02 Dose: Not Given Lorazepam (Ativan Injection) 2 mg IM EDNOW ONE Stop: 08/10/18 20:57 Last Admin: 08/10/18 20:56 Dose: 2 mg Olanzapine (Olanzapine) 10 mg PO ONCE ONE Stop: 08/10/18 15:58 Last Admin: 08/10/18 16:45 Dose: Not Given Quetiapine Fumarate (Seroquel) 100 mg PO EDNOW ONE Stop: 08/10/18 21:25 Last Admin: 08/10/18 21:33 Dose: 100 mg Quetiapine Fumarate (Seroquel) 100 mg PO EDNOW ONE Stop: 08/11/18 07:34 Last Admin: 08/11/18 07:41 Dose: 100 mg Tramadol HCl (Ultram) 50 mg PO EDNOW ONE Stop: 08/10/18 22:24 Last Admin: 08/10/18 22:28 Dose: 50 mg Tramadol HCl (Ultram) 50 mg PO EDNOW ONE Stop: 08/11/18 08:09 Last Admin: 08/11/18 08:12 Dose: 50 mg Departure - Departure Disposition: [facility] IP Clinical Impression: Acute psychosis Psychosis Qualifiers: Psychosis type: schizoaffective disorder Schizoaffective disorder type: bipolar Qualified Code(s): F25.0 - Schizoaffective disorder, bipolar type Condition: Fair Referrals: Quyen Cunningham MD [Primary Care Provider] - As per Instructions
[2018-08-10] MEDS ORDERED: OLANZapine 5 MG TAB PO ONE (15:57)
[2018-08-10] MEDS ORDERED: LORazepam 1 MG TAB PO ONE (16:08)
[2018-08-10] MEDS ORDERED: LORazepam 2 MG/ML INJ ONE ×2 (16:19→20:49)
[2018-08-10] MEDS ORDERED: LORazepam 2 MG/ML INJ IM PRN (16:21)
[2018-08-10] MEDS ORDERED: LORazepam 2 MG/ML INJ IVP ONE (16:22)
[2018-08-10 18:23] LABS: PLATELET COUNT 196 10^3/uL (150-400)
[2018-08-10] MEDS ORDERED: LORazepam 2 MG/ML INJ IM ONE (20:56)
[2018-08-10] MEDS ORDERED: QUEtiapine FUMARATE 200 MG TAB PO ONE (21:24)
[2018-08-10] MEDS ORDERED: traMADol 50 MG TAB PO ONE (22:23)
[2018-08-11] MEDS ORDERED: QUEtiapine FUMARATE 200 MG TAB PO ONE ×2 (07:33→16:49)
[2018-08-11] MEDS ORDERED: traMADol 50 MG TAB PO ONE (08:08)
--- NOTE | 2018-08-11 10:32 | PDCONSULT ---
Research Associate Professor Note: Chief complaint/HPI Patient was referred from her primary care physician after patient complained of hallucinations and felt that time traveler's were trying to remove her intestines and brain. Currently she complains of feeling scared but otherwise has no physical complaints. She denied abdominal pain, nausea vomiting, dysuria , fevers, chills cough or other symptoms. Past medical history Difficult to ascertain to the interview but from chart review appears patient has a history of: Morbid obesity Reactive airway disease Borderline personality disorder PTSD She reports a history of uterine and ovarian cancer Non insulin-dependent diabetes mellitus Reported factor 5 Leiden Hypertension Hypothyroidism Chart review shows previous suicide attempt with Coumadin GERONIMO Past surgical history Hysterectomy in 2016 Social history Smokes some cigarettes daily Smokes marijuana daily No other drugs or out Family history Father with COPD Mother with congestive heart failure Allergies Thiothixene Adhesive tape Haldol Pradaxa olanzapine Review of systems Ten point review systems was reviewed and is negative except as stated in HPI and below Examination Vitals: Blood pressure is 144/90, respirations 19, pulse 83, pulse ox 93% on room air, temperature 37.1 degrees C General- unkempt morbidly obese female in no acute distress HEENT- PERRLA, atraumatic normocephalic, mucous membranes are moist pink and acyanotic, Lungs- clear to auscultation bilaterally Cardiovascular- regular rhythm and rate no murmurs rubs gallops normal S1-S2 Abdomen- obese, positive bowel sounds nontender nondistended in all 4 quadrants no organomegaly Extremities- no clubbing cyanosis edema or calf pain Skin- no rashes lacerations abrasions or ecchymosis Neuro- cranial nerves 2-12 grossly intact, no focal neurologic deficits Psych- initially appeared mildly lethargic, appears to be having active hallucinations at times, mildly confused Assessment plan 43-year-old female brought in for hallucinations and active psychosis. Active psychoses- management per Psychiatry. From a medical standpoint patient is cleared and there are no acute medical issues that would preclude patient from admission to [facility]. Reactive airway disease- resume home inhalers Hypothyroid- continue home Synthroid GERONIMO- CPAP if patient is willing to use it Diabetes- patient only uses metformin which should be fine to continue History of uterine and ovarian cancer- on Femara. Continue here Hypertension- continue home lisinopril 20 mg daily Non alcoholic cirrhosis- on rifaximin which should be continued and Vistaril for itching pain- takes Ultram and Voltaren. Should hold the Ultram given its potential to interact with psychotropic medications. Prophylaxis- recommend SCDs and heparin Fluids- able to take p.o. Electrolytes- within normal limits Nutrition- diabetic diet.
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
--- NOTE | 2018-08-11 10:53 | ASMTTCLDSP ---
[facility] Discharge Disposition Disposition: Answers: Admit Disposition Notes: Notes: Admit V[facility] C[facility]. Discharge Concerns/Recommendations: Notes: In consultation with [facility] ED physician, Radha Montgomery MD and on-call psychiatrist, Peterson Lantigua MD, both concurred that pt appears to meet 27-65 criteria requiring psychiatric hospitalization as pt appears to be gravely disabled due to a mental illness condition. Pt was read the Patient Rights and Responsibilities Statement on 08/11/18 [id number], original placed on chart, and was given photocopy of Rights. Pt declined to sign the Patient Rights. Pt was given but declined to sign the 3[facility] prohibited belongings list while in the ED. Was patient given the Answers: Yes Inpatient Behavioral Health Prohibited Belongings List while in the ED? For inpatient Peterson Lantigua MD admission, the following psychiatrist agreed to accept patient for admission to Behavioral Health ([facility]): Type of Hold: Answers: M1/72-hour Hold Hold initiated by: Answers: ED Physician Date Signed: 08/11/2018 10:52 AM Electronically Signed By:Christiano Jimenez
--- NOTE | 2018-08-11 11:31 | ASMTCMCOM ---
CM Note CM Note Notes: This CM received call from HAJA Napier Movie Machine Operator at [facility] coordination of care and follow up. Quyen explains that patient has been reluctant to follow up with [facility] despite referrals and is concerned about MH follow up. I have confirmed plans for admission to IP with PHILLIP Delgadillo and provided Quyen with contact information for [facility] at extensions #[phone] and [phone]. Quyen is aware of patient's admission and will follow up with the [facility] social workers regarding foolow up plans and referrals upon discharge. CM available for further needs prn Date Signed: 08/11/2018 11:30 AM Electronically Signed By:Yasmin Molina RN
[2018-08-11] MEDS ORDERED: METHOCARBAMOL 500 MG TAB PO PRN ×2 (11:36→12:23)
[2018-08-11] MEDS ORDERED: ALBUTEROL 60 PUFFS/8 GM MDI IH PRN ×2 (11:36→12:23)
[2018-08-11] MEDS ORDERED: DICYCLOMINE 20 MG TAB PO PRN ×2 (11:36→12:23)
[2018-08-11] MEDS ORDERED: GABAPENTIN 300 MG CAP PO SCH ×4 (12:00→21:00)
[2018-08-11] MEDS ORDERED: LIPASE 24,000/AMYLASE/PROTEASE (CREON) 1 CAP PO SCH (12:00)
--- NOTE | 2018-08-11 12:49 | ASMTCMCOM ---
CM Note CM Note Notes: Quyen, from [facility], contacted [facility] re pt. They advise that pt, following d/c, will not follow through with any appts set up at [facility]. She has indicated, however, a willingness to follow up with other providers. In the past she has been seen at [facility] and at [facility]. Quyen can be reached at [phone]. Date Signed: 08/11/2018 12:48 PM Electronically Signed By:Hyacinth Ellsworth
[2018-08-11] MEDS: LIPASE 24,000/AMYLASE/PROTEASE (CREON) 1 CAP PO SCH ×3 (13:46→17:50)
[2018-08-11 13:51] VITALS: BP 169/86
[2018-08-11] MEDS ORDERED: OLANZapine DISINTEGR 10 MG TAB PO PRN (14:45)
[2018-08-11] MEDS ORDERED: LORazepam 1 MG TAB PO PRN (14:46)
[2018-08-11] MEDS: hydrOXYzine HCL 50 MG TAB PO SCH ×2 (15:59→20:15)
[2018-08-11] MEDS ORDERED: NON-FORMULARY NEW DRUG (Hydroxyzine Pamoate [Vistaril] 50 MG) PO SCH (16:00)
[2018-08-11] MEDS ORDERED: QUEtiapine FUMARATE 100 MG TAB PO PRN (16:50)
[2018-08-11] MEDS ORDERED: traMADol 50 MG TAB PO PRN (16:51)
[2018-08-11] MEDS: PANTOPRAZOLE SODIUM 40 MG TAB PO SCH ×2 (17:35→17:54)
[2018-08-11] MEDS ORDERED: metFORMIN HCL 500 MG TAB PO SCH ×2 (18:00)
[2018-08-11] MEDS ORDERED: NON-FORMULARY NEW DRUG (Omeprazole [Omeprazole] 40 MG) PO SCH (18:00)
--- NOTE | 2018-08-11 18:06 | BAPA ---
[f rep st] ADMISSION PSYCHIATRIC ASSESSMENT DATE OF SERVICE: 08/11/2018 CHIEF COMPLAINT: "I'm just scared, I need to go home." HISTORY OF PRESENT ILLNESS: Patient is a 43-year-old female known to me from previous admissions to our facility. She has a history of previous diagnosis of schizoaffective disorder and borderline personality disorder. It has been my firm belief over time that she does not experience true psychosis, but that she has disintegration of her severe borderline personality and that seems at times to mirror this. She also factitiously embellishes auditory and visual hallucinations and delusions to appear psychotic when she is not. She was evaluated in the emergency department earlier today and after having presenting there herself. It is unclear why she came to the emergency department, though the ED notes and [facility] report state that she appeared psychotic including seeming to hallucinate, at times pointing at invisible objects and screaming. She was felt to be gravely disabled, placed on an M1 hold and I accepted her for evaluation. On arriving to the unit, she continued to scream, cry, swear at staff, and make many demands. She asked for crayons in order to color and then broke the crayons and tore up the paper. She asked for Ativan and then self-induced vomiting after taking it. I interviewed her this evening for approximately 1 hour, at which time she was screaming and telling me that I did not like her from a previous hospitalization. I assured her that she seemed to be very upset and I felt badly for her and wanted to help her. The quasi-psychotic symptoms completely resolved at that time, and she became conversant, talking about how she had many different medical illnesses and is suffering from cancer , hepatic encephalopathy, and liver failure. She states that she feels bad physically and has no supports at home. She states her father is in the ICU in [place] and is dying from liver failure and that she has isolated herself from her friends. She repeatedly states that she simply wants to go home, that she feels "scared" in the hospital, but could not identify why it was she came to the emergency department for evaluation in the first place. She did tell me that she had stopped seeing her psychiatric practitioner and was "rationing" her Seroquel. She stated that the Seroquel "is the only thing that helps me when I feel scared." Later in the interview, she stated that she wanted to call her friend to come pick her up. I told her to do that to see if she was able to, in fact, organize that behavior and she did call her friend. She then shut the door to her room and was talking to her friend, so it was unclear what the upshot of that was. She asked for Seroquel for anxiety and tramadol for pain and I agreed to order those. She then stated, "The only reason I act like this is because I'm in pain." Prior to that she stated several times, "I am like this because I have hepatic encephalopathy. I don't know what I'm doing. My brain doesn't work." PAST PSYCHIATRIC HISTORY: Significant for numerous previous psychiatric hospitalizations. The last one was here in April 2016. By her report, she has no current outpatient providers. She has a history of intentional overdoses and factitious overdoses and chronic suicidality. ALLERGIES: Multiple, including thiothixene, tape, Pradaxa, haloperidol, and Zyprexa. PAST MEDICAL HISTORY: Includes obesity, remote breast cancer for which she was taking suppressive therapy in the past. By her report, uterine cancer, hepatic encephalopathy, liver failure, though those do not appear in her medical chart that I can find. Hypertension and history of PE. SOCIAL HISTORY: Patient is single, lives alone in an apartment in [place]. She states her father is in the ICU. Her mother has passed. She by her own report has no supports in the community. She did later state that she had a friend she could call, however, named Kim. ADMISSION LABORATORY: CBC is normal. Serum chemistry showed a sodium slightly down at 134, otherwise normal. Beta hCG is negative. Urine drug screen is positive for opioids and marijuana. MENTAL STATUS EXAMINATION: Reveals a very obese female casually dressed. She is quite agitated, sobbing loudly, and taking very short and rapid breaths. She is irritable, hostile, yelling, though is verbally redirectable. After approximately 30 minutes of interview, she is able to more appropriately converse. She does remain tearful, however, stating that she is afraid, but is unclear of what. She continually requests discharge from the hospital stating that the environment is "too institutional." She denies auditory, visual, or tactile hallucinations. There is no evidence of internal preoccupation or response to internal stimuli. There is no indication of delusions. She is alert and oriented to person, place, time, and situation, is able to give the dates and times of her medical appointments and her past medical history, such that she reports it. She has no evidence of delirium, encephalopathy, or intoxication at this time. She repeatedly denies thoughts of suicide, homicide, or violence to me. Her insight and judgment appear to be marginal. IMPRESSION: Borderline personality disorder with possible acute psychotic decompensation. Multiple medical problems. The patient is a 43-year-old female with a history of severe borderline personality disorder. I believe that this is her primary psychiatric condition and that psychotic decompensations are consistent with that diagnosis. I do not believe she has a schizophrenic illness. She requests Seroquel as she reports this helps with her anxiety and I believe it certainly can, and also may help her reconstitute from this severe decompensation as well. PLAN: 1. Admit to the behavioral health services inpatient unit on an M1 hold. 2. Will restart the Seroquel that she can take now and then p.r.n. The risks, benefits and alternatives were reviewed with her and she agrees to proceed. She states this is "the only medicine that works for me." We will also restart her tramadol for back pain. 3. Will engage in attempts to deescalate. As soon as she is calm, we will discharge her to home. If she is able to contact her friend to pick her up and the friend is willing to do so, I may consider discharge as early as today. 4. Estimated length of stay is 1 to 2 days. /[id number]/MODL MTDD
[2018-08-11] MEDS ORDERED: TRAVOPROST Z 0.004% 2.5 ML OPHT.BTL EACHEYE SCH ×2 (21:00)
[2018-08-11] MEDS ORDERED: RIFAXIMIN 550 MG TAB PO SCH ×2 (21:00)
[2018-08-11] MEDS ORDERED: BUDESONIDE/FORMOTEROL 160/4.5 60 PUFFS/MDI IH SCH ×2 (21:00)
[2018-08-11] MEDS ORDERED: FUROSEMIDE 20 MG TAB PO SCH ×2 (21:00)
[2018-08-11] MEDS ORDERED: RISPERIDONE 2 MG ODT TAB SL SCH (21:00)
[2018-08-11] MEDS ORDERED: TAMSULOSIN HCL 0.4 MG CAP PO SCH ×2 (21:00)
[2018-08-12] MEDS ORDERED: LEVOTHYROXINE 50 MCG TAB PO SCH ×2 (06:00)
[2018-08-12] MEDS ORDERED: POTASSIUM CL 20 MEQ TAB PO SCH ×2 (09:00)
[2018-08-12] MEDS ORDERED: LISINOPRIL 20 MG TAB PO SCH ×2 (09:00)
[2018-08-12] MEDS ORDERED: LETROZOLE 2.5 MG TAB PO SCH ×2 (09:00)
[2018-08-12] MEDS ORDERED: TRAMADOL HCL 100 MG PO SCH (09:00)
== END 2018-08-11 21:00 | disposition home or self-care (01) | DRG 883 ==
LOC: BBEH 08-11 12:10
PROVIDERS: ADMIT Psychiatry & Neurology Psychiatry; ATTEND Psychiatry & Neurology Psychiatry
DX: F60.3 Borderline personality disorder (principal); F25.0 Schizoaffective disorder, bipolar type; E11.9 Type 2 diabetes mellitus without complications; D68.2 Hereditary deficiency of other clotting factors; F43.10 Post-traumatic stress disorder, unspecified; E03.9 Hypothyroidism, unspecified; G47.33 Obstructive sleep apnea (adult) (pediatric); J45.909 Unspecified asthma, uncomplicated; E66.01 Morbid (severe) obesity due to excess calories; F17.210 Nicotine dependence, cigarettes, uncomplicated; Z68.42 Body mass index [BMI] 45.0-49.9, adult; Z87.442 Personal history of urinary calculi; Z86.711 Personal history of pulmonary embolism; Z85.43 Personal history of malignant neoplasm of ovary; Z85.42 Personal history of malignant neoplasm of other parts of uterus
CPT/HCPCS: 80305; G0480; J2060